=== PATIENT | female | born 1995 | race Caucasian/White ===

== ENCOUNTER → 2017-10-21 10:56 | Outpatient (CLI) | payer OTHER, MEDICAID, SELFPAY ==
[2017-10-21 12:07] LABS: Add Manual Diff / Slide Review NO; Basophils Percent Auto 1.4 % (0-2); Eosinophils Percent Auto 2.3 % (2-4); Hematocrit 41.6 % (36-46); Hemoglobin 14.1 g/dL (12.0-16.0); Lymphocytes Percent Auto 38.8 % (25-40); Mean Corpuscular HGB Conc 33.8 % (30-36); Mean Corpuscular Hemoglobin 31.4 PG (26-34); Mean Corpuscular Volume 93.1 fL (80-100); Neutrophils Absolute Auto 3100 /uL (3000-5900); Neutrophils Percent Auto 49.5 % (50-75); Platelet Count 339 X10^3/uL (150-400); Red Blood Cell Count 4.47 X10^6/uL (4.0-5.2); Red Cell Distribution Width 12.8 % (11.6-14.8); White Blood Cell Count 6.2 X10^3/uL (4.5-11.0)
[2017-10-21 12:40] LABS: Alanine Aminotransferase 17 IU/L (9-52); Albumin 4.2 g/dL (3.5-5.0); Albumin Globulin Ratio 1.5 (1.0-2.8); Alkaline Phosphatase 37 U/L (38-126); Aspartate Aminotransferase 16 IU/L (14-36); Bilirubin Total 0.5 mg/dL (0.2-1.3); Blood Urea Nitrogen 21 mg/dL (7-17); Carbon Dioxide 25 mmol/L (22-32); Chloride 103 mmol/L (98-107); Cholesterol 154 mg/dL (140-199); Estimated Glomerular Filt Rate > 60.0 mL/min (>60); Globulin 2.8 g/dL (1.7-4.1); Glucose 82 mg/dL (70-100); HDL Cholesterol 78 mg/dL (40-60); HEMOLYSIS < 15 (0-50); LDL Cholesterol Calculated 67 mg/dL (<100); Sodium 138 mmol/L (137-145); Triglycerides 43 mg/dL (35-150)
[2017-10-21 13:00] LABS: Urine N gonorrhoeae NOT DETECTED
[2017-10-21 13:08] LABS: Urine Chlamydia NOT DETECTED
[2017-10-21 13:24] LABS: Thyroid Stimulating Hormone 2.09 uIU/mL (0.47-4.68)
[2017-10-21 16:07] LABS: HIV 1 and 2 Antibody NEGATIVE (NEGATIVE)
[2017-10-23 16:16] LABS: Hepatitis A Antibody IgM NONREACTIVE; Hepatitis Acute Panel Interp 0.37; Hepatitis B Core Antibody IgM NONREACTIVE; Hepatitis B Surface Antigen NONREACTIVE; Hepatitis C Antibody NONREACTIVE
[2017-10-24 15:33] LABS: Rapid Plasma Reagin NON REACTIVE
== END ==
PROVIDERS: PCP Family Medicine; Visit Provider Family Medicine
DX: Z13.9 Encounter for screening, unspecified (principal); Z20.2 Contact with and (suspected) exposure to infections with a predominantly sexual mode of transmission
CPT/HCPCS: 36415; 80053; 80061; 80074; 84443; 85025; 86592; 86703; 87491; 87591

== ENCOUNTER 2018-01-21 15:28 | Emergency (ER) | payer OTHER, MEDICAID, SELFPAY ==
[2018-01-21 15:35] VITALS: PULSE 75; RESP 17; TEMP 36.6; O2SAT 99
--- NOTE | 2018-01-21 15:43 | ED_ITS ---
HPI - Female Genitourinary <SARAH Mayo - Last Filed: 01/21/18 21:46> General Chief complaint: Vaginal Bleeding Stated complaint: building services engineer problem with bleeding sent by walk in Time Seen by Provider: 01/21/18 15:41 Source: patient Mode of arrival: ambulatory Limitations: no limitations History of Present Illness HPI Narrative: 22-year-old healthy female that is a nonsmoker here for complaint of having vaginal bleeding over the past week. She reports that she had intercourse with her boyfriend last week and for approximately 3-4 days afterward had some vaginal bleeding and some discomfort. She reports that this resolved mostly. She reports she started her. Earlier today and inserted a tampon and then had pain into the vaginal area and then started bleeding more after the tampon was inserted. She reports that she had a similar episode a year ago and she had a vaginal laceration that had to be repaired by building services engineer. She is concerned that she may have the same symptoms. She denies any abnormal vaginal discharge. she she denies any abdominal pain. She reports that she has gone through 3 pads today over approximate 8 hrs. MD Complaint: vaginal bleeding Related Data Home Medications Medication Instructions Recorded Confirmed albuterol sulfate [ProAir HFA] 1 puff INHALATION QID PRN 01/21/18 01/21/18 fluoxetine [Prozac] 40 mg PO DAILY 01/21/18 01/21/18 norethindrone-e.estradiol-iron 1 tab PO DAILY 01/21/18 01/21/18 [Melodetta 24 Fe] Previous Rx's Medication Instructions Recorded clindamycin 1.2 % (1 % 1 applictn TOP BID #45 gram 09/25/17 base)-benzoyl peroxide 5 % topical gel fluocinonide 0.05 % topical 1 applictn TOP BID #60 ml 12/11/17 solution Allergies Allergy/AdvReac Type Severity Reaction Status Date / Time No Known Allergies Allergy Uncoded 09/23/17 17:18 Review of Systems <SARAH Mayo - Last Filed: 01/21/18 21:46> Constitutional Denies chills, Denies fever(s), Denies lethargy and Denies weakness Eyes Denies change in vision, Denies eye discharge, Denies irritation and Denies loss of vision ENT Ears, Nose, Mouth, and Throat: Denies change in voice, Denies neck pain and Denies sore throat Cardiovascular Denies chest pain, Denies irregular heart rhythm, Denies lightheadedness, Denies palpitations, Denies dyspnea, Denies dyspnea on exertion and Denies orthopnea Respiratory Denies cough, Denies dyspnea, Denies dyspnea on exertion and Denies wheezing Gastrointestinal Gastrointestinal: Denies abdominal pain, Denies change in bowel habits, Denies diarrhea, Denies nausea and Denies vomiting Genitourinary Reports abnormal vaginal bleeding, Denies hematuria, Denies flank pain, Denies urinary incontinence and Denies urinary urgency Musculoskeletal Denies neck pain Integumentary/Breasts Denies pruritus, Denies erythema, Denies rash and Denies wounds Neurologic Denies confusion, Denies loss of vision and Denies weakness Psychiatric Denies anxiety, Denies confusion, Denies depression, Denies homicidal ideation and Denies suicidal ideation Endocrine Denies palpitations Hematologic/Lymphatic Denies easy bruising Allergic/Immunologic Denies wheezing Exam <SARAH Mayo - Last Filed: 01/21/18 21:46> Initial Vital Signs Initial Vital Signs: Vital Signs Temperature 97.8 F 01/21/18 15:35 Pulse Rate 75 01/21/18 15:35 Respiratory Rate 17 01/21/18 15:35 Pulse Oximetry 99 01/21/18 15:35 Const General: cooperative and well developed Nutritional Appearance: well nourished Orientation: alert, awake, oriented x3 and not confused [facility] Mouth: oral mucosae normal and moist mucous membranes Eyes Conjunctivae: conjunctivae normal Sclera: sclerae normal Pupils: PERRL EOM: EOM intact bilaterally Resp Effort & Inspection: normal respiratory effort, able to speak in complete sentences, no respiratory distress and no use of accessory muscles Auscultation: clear to auscultation bilaterally, no rales, no rhonchi and no wheezes Cardio Rate: regular rate Rhythm: regular rhythm Heart Sounds: no click, no gallops, no murmurs and no rubs Pulses: normal peripheral pulses GI Inspection: non-distended Palpation: soft, no hepatosplenomegaly, No guarding, No pulsatile mass and No tender Auscultation: normal bowel sounds Skin General: no rashes or lesions noted, No jaundice and No petechiae Neuro General: alert, oriented x3, gait normal and no focal motor deficits Speech: speech normal <Laurel Canales MD - Last Filed: 01/28/18 00:03> Initial Vital Signs Initial Vital Signs: Vital Signs Temperature 97.8 F 01/21/18 15:35 Pulse Rate 75 01/21/18 15:35 Respiratory Rate 17 01/21/18 15:35 Pulse Oximetry 99 01/21/18 15:35 Course <SARAH Mayo - Last Filed: 01/21/18 21:46> Orders Ordered: ED Orders 01/21/18 16:23 Complete Blood Count AUTO DIFF Stat Comprehensive Metabolic Panel Stat Vital Signs - 8 hr 01/21/18 15:35 Temperature 97.8 F Pulse Rate 75 Respiratory Rate 17 Pulse Oximetry 99 <Laurel Canales MD - Last Filed: 01/28/18 00:03> Orders Ordered: ED Orders 01/21/18 16:23 Complete Blood Count AUTO DIFF Stat Comprehensive Metabolic Panel Stat Vital Signs - 8 hr 01/21/18 15:35 Temperature 97.8 F Pulse Rate 75 Respiratory Rate 17 Pulse Oximetry 99 MDM - Female Genitourinary <SARAH Mayo - Last Filed: 01/21/18 21:46> Lab Data Result diagrams: 01/21/18 16:23 01/21/18 16:23 Lab Results 01/21/18 01/21/18 Range/Units 16:23 16:23 WBC 6.0 (4.5-11.0) X10^3/uL RBC 4.36 (4.0-5.2) X10^6/uL Hgb 13.8 (12.0-16.0) g/dL Hct 41.3 (36-46) % MCV 94.6 (80-100) fL MCH 31.8 (26-34) PG MCHC 33.6 (30-36) % RDW 12.7 (11.6-14.8) % Plt Count 315 (150-400) X10^3/uL Neut % (Auto) 49.2 L (50-75) % Lymph % (Auto) 37.3 (25-40) % Tyrrell % (Auto) 9.5 (3-14) % Eos % (Auto) 2.5 (2-4) % Baso % (Auto) 1.5 (0-2) % Neut # (Auto) 3000 (9781-1100) /uL Sodium 144 (137-145) mmol/L Potassium 3.8 (3.4-5.1) mmol/L Chloride 106 (98-107) mmol/L Carbon Dioxide 26 (22-32) mmol/L BUN 5 L (7-17) mg/dL Creatinine 0.60 (0.52-1.04) mg/dL Estimated GFR > 60.0 (>60) mL/min BUN/Creatinine Ratio 8.3 (6-22) Glucose 104 H (70-100) mg/dL Calcium 8.3 L (8.4-10.2) mg/dL Total Bilirubin 0.3 (0.2-1.3) mg/dL AST 20 (14-36) IU/L ALT 16 (9-52) IU/L Alkaline Phosphatase 39 (38-126) U/L Total Protein 6.7 (6.3-8.2) g/dL Albumin 4.2 (3.5-5.0) g/dL Globulin 2.5 (1.7-4.1) g/dL Albumin/Globulin Ratio 1.7 (1.0-2.8) Point of Care Testing Test Results Negative Urine Dip Bedside Urine Bilirubin - Negative Bedside Urine Ketone - Negative Urine Specific [place] 1.02 Bedside Urine Occult Blood + Bedside Urine pH 6.0 Bedside Urine Protein - Negative Bedside Urine Urobilinogen - Negative Bedside Urine Nitrite - Negative Bedside Urine Leukocytes - Negative Esterase MDM Narrative Medical decision making narrative: POC urine was obtained was negative for urinary tract infection or . CBC and Chem panel were obtained and are unremarkable. During evaluation was called from building services engineer office and was informed that she has an appointment with Dr. Healy at this timeframe and that they would like to see her of the building services engineer. Patient is discharged to go to her building services engineer appointment for further evaluation of her current symptoms. Return emergency room for any worsening symptoms <Laurel Canales MD - Last Filed: 01/28/18 00:03> Lab Data Lab Results 01/21/18 01/21/18 Range/Units 16:23 16:23 WBC 6.0 (4.5-11.0) X10^3/uL RBC 4.36 (4.0-5.2) X10^6/uL Hgb 13.8 (12.0-16.0) g/dL Hct 41.3 (36-46) % MCV 94.6 (80-100) fL MCH 31.8 (26-34) PG MCHC 33.6 (30-36) % RDW 12.7 (11.6-14.8) % Plt Count 315 (150-400) X10^3/uL Neut % (Auto) 49.2 L (50-75) % Lymph % (Auto) 37.3 (25-40) % Tyrrell % (Auto) 9.5 (3-14) % Eos % (Auto) 2.5 (2-4) % Baso % (Auto) 1.5 (0-2) % Neut # (Auto) 3000 (4826-0727) /uL Sodium 144 (137-145) mmol/L Potassium 3.8 (3.4-5.1) mmol/L Chloride 106 (98-107) mmol/L Carbon Dioxide 26 (22-32) mmol/L BUN 5 L (7-17) mg/dL Creatinine 0.60 (0.52-1.04) mg/dL Estimated GFR > 60.0 (>60) mL/min BUN/Creatinine Ratio 8.3 (6-22) Glucose 104 H (70-100) mg/dL Calcium 8.3 L (8.4-10.2) mg/dL Total Bilirubin 0.3 (0.2-1.3) mg/dL AST 20 (14-36) IU/L ALT 16 (9-52) IU/L Alkaline Phosphatase 39 (38-126) U/L Total Protein 6.7 (6.3-8.2) g/dL Albumin 4.2 (3.5-5.0) g/dL Globulin 2.5 (1.7-4.1) g/dL Albumin/Globulin Ratio 1.7 (1.0-2.8) Point of Care Testing Test Results Negative Urine Dip Bedside Urine Bilirubin - Negative Bedside Urine Ketone - Negative Urine Specific [place] 1.02 Bedside Urine Occult Blood + Bedside Urine pH 6.0 Bedside Urine Protein - Negative Bedside Urine Urobilinogen - Negative Bedside Urine Nitrite - Negative Bedside Urine Leukocytes - Negative Esterase Discharge Plan Departure Patient Disposition: Home Clinical Impression: Vaginal bleeding Discharge Date/Time: 01/21/18 16:46 Interventions: ED Discharge Assessment Last Done: 01/21/18 16:45 Instructions: DI for Vaginal Bleeding Activity Restrictions/Additional Instructions: You have an appointment with building services engineer at this time go to building services engineer for further evaluation and treatment of her current symptoms. Return emergency room for any worsening symptoms. Prescriptions: No Action clindamycin-benzoyl peroxide [Duac] 1.2 %(1 % base) -5 % gel 1 applictn TOP BID Qty: 45 RF: 3 fluocinonide 0.05 % solution 1 applictn TOP BID Qty: 60 RF: 3 albuterol sulfate [ProAir HFA] 90 mcg/actuation HFA aerosol inhaler 1 puff Inhalation QID PRN (Reason: Shortness Of Breath Or Wheezing) RF: 0 norethindrone-e.estradiol-iron [Melodetta 24 Fe] 1 mg-20 mcg(24) /75 mg (4) tablet,chewable 1 tab PO DAILY RF: 0 fluoxetine [Prozac] 40 mg capsule 40 mg PO DAILY RF: 0 Referrals: Kira Carvalho DO [Primary Care Provider] -
--- NOTE | 2018-01-21 16:18 | PC.NURSE ---
Patient reports having sex approx one week ago when sudden onset of sharp pain and bleeding started. Had a similar episode one year ago that required surgical repair. Bleeding lasted approx 4days with pain inside vagina. Today period started, patient placed a tampon and had severe pain and increase bleeding after use of tampon. Patient reports pain is not typical period pain.
[2018-01-21 16:35] LABS: Add Manual Diff / Slide Review NO; Basophils Percent Auto 1.5 % (0-2); Eosinophils Percent Auto 2.5 % (2-4); Hematocrit 41.3 % (36-46); Hemoglobin 13.8 g/dL (12.0-16.0); Lymphocytes Percent Auto 37.3 % (25-40); Mean Corpuscular HGB Conc 33.6 % (30-36); Mean Corpuscular Hemoglobin 31.8 PG (26-34); Mean Corpuscular Volume 94.6 fL (80-100); Monocytes Percent Auto 9.5 % (3-14); Neutrophils Absolute Auto 3000 /uL (3000-5900); Neutrophils Percent Auto 49.2 % (50-75); Platelet Count 315 X10^3/uL (150-400); Red Blood Cell Count 4.36 X10^6/uL (4.0-5.2); Red Cell Distribution Width 12.7 % (11.6-14.8)
--- NOTE | 2018-01-21 16:44 | PC.NURSE ---
DR Healy's office called and patient was suppose to go to office for a visit. Patient had lab draw and was discharged from ED to go directly to OB office. Did not sign discharge documents.
[2018-01-21 16:48] LABS: Alanine Aminotransferase 16 IU/L (9-52); Albumin 4.2 g/dL (3.5-5.0); Albumin Globulin Ratio 1.7 (1.0-2.8); Alkaline Phosphatase 39 U/L (38-126); Aspartate Aminotransferase 20 IU/L (14-36); BUN Creatinine Ratio 8.3 (6-22); Bilirubin Total 0.3 mg/dL (0.2-1.3); Blood Urea Nitrogen 5 mg/dL (7-17); Calcium 8.3 mg/dL (8.4-10.2); Carbon Dioxide 26 mmol/L (22-32); Chloride 106 mmol/L (98-107); Estimated Glomerular Filt Rate > 60.0 mL/min (>60); Globulin 2.5 g/dL (1.7-4.1); Glucose 104 mg/dL (70-100); HEMOLYSIS < 15 (0-50); Potassium 3.8 mmol/L (3.4-5.1); Sodium 144 mmol/L (137-145); Total Protein 6.7 g/dL (6.3-8.2)
== END 2018-01-21 16:46 | disposition home or self-care (01) ==
PROVIDERS: Emergency Provider Nurse Practitioner Family; PCP Family Medicine
DX: N93.9 Abnormal uterine and vaginal bleeding, unspecified (principal)
CPT/HCPCS: 80053; 81003; 81025; 85025; 99282; 99283

== ENCOUNTER 2018-08-05 19:07 | Emergency (ER) | payer OTHER, MEDICAID, SELFPAY ==
[2018-08-05 19:18] VITALS: BP 165/88; PULSE 94; RESP 18; TEMP 37.4; O2SAT 100; BMI 22.8
[2018-08-05] MEDS: hydrOXYzine pamoate 25 MG CAPSULE 50 MG PO (19:51)
--- NOTE | 2018-08-05 21:05 | ED.ANXIETY ---
HPI - Anxiety <RENEE Mcdaniel-BC - Last Filed: 08/05/18 21:26> General Chief Complaint: Anxiety Stated Complaint: VOMITING FEVER ANXIETY SOB Time Seen by Provider: 08/05/18 19:29 Source: patient Mode of arrival: ambulatory Limitations: no limitations History of Present Illness HPI narrative: The patient is a 23-year-old female former smoker with history of anxiety, who presents with a chief complaint of anxiety. She states that she recently cut her Prozac cold turkey. She was taking 60 mg p.o. daily for 4 years, but then decided that she did not want to take preventative medications any more. She states that since she quit taking the medication, she has had increasing anxiety symptoms including chest fluttering, nausea, racing thoughts etc. She denies any current suicidal ideation or homicidal ideation. She states she has taken Xanax before with good effect. Related Data Home Medications Medication Instructions Recorded Confirmed albuterol sulfate [ProAir HFA] 1 puff INHALATION QID PRN 01/21/18 01/21/18 fluoxetine [Prozac] 40 mg PO DAILY 01/21/18 01/21/18 norethindrone-e.estradiol-iron 1 tab PO DAILY 01/21/18 01/21/18 [Melodetta 24 Fe] Previous Rx's Medication Instructions Recorded clindamycin 1.2 % (1 % 1 applictn TOP BID #45 gram 09/25/17 base)-benzoyl peroxide 5 % topical gel fluocinonide 0.05 % topical 1 applictn TOP BID #60 ml 06/23/18 solution fluocinonide 0.05 % topical cream 1 applictn TOP BID #60 gram 06/25/18 alprazolam [Xanax] 0.25 mg PO BID-TID PRN #5 tab 08/05/18 hydroxyzine pamoate [Vistaril] 50 mg PO TID-QID PRN #30 cap 08/05/18 Allergies Allergy/AdvReac Type Severity Reaction Status Date / Time No Known Drug Allergies Allergy Verified 08/05/18 19:39 Review of Systems <SHAVON Mcdaniel - Last Filed: 08/05/18 21:26> Review of Systems GENERAL: Denies chills, fatigue, malaise, fever, sweats. HEENT: Denies sinus pain, ear pain, sore throat, difficulty swallowing, dizziness. RESPIRATORY: Denies dyspnea, cough, wheezing, hemoptysis, sputum. CARDIOVASCULAR: Denies chest pain, palpitations, orthopnea, edema, GASTROINTESTINAL: Denies nausea, vomiting, abdominal pain, diarrhea, constipation, melena. : Denies dysuria, frequency, incontinence, hematuria, urinary retention. MUSCULOSKELETAL: denies weakness, joint pain, or bony pain SKIN: Denies rash, skin lesions, or other NEUROLOGIC: Denies weakness, headache, numbness, change in speech, confusion, seizures, incoordination. 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) Acne (Resolved Unknown) ADHD (Inactive ~2012) Abnormal Pap smear of cervix (Inactive ~2012) Acne (Inactive ~2007) Anemia (Inactive ~2012) Anxiety (Inactive ~2012) Asthma (Inactive ~2008) Bipolar 1 disorder (Inactive ~2012) Chickenpox (Inactive ~2002) Depression (Inactive ~2012) Eczema (Inactive ~2004) Heavy menstrual period (Inactive ~2007) Irregular menstrual cycle (Inactive ~2005) Psoriasis (Inactive ~2004) Scoliosis (Inactive ~2005) Skin cancer (Inactive ~2014) Family History Mother Skin cancer Mental health problem Grandmother Hypertension Diabetes mellitus Mental health problem Hyperlipidemia Social History Smoking Status: Former smoker alcohol intake: current (Occasionally, maybe a drink a week) substance use type: does not use Family History Mother Skin cancer Mental health problem Grandmother Hypertension Diabetes mellitus Mental health problem Hyperlipidemia Social History Smoking Status: Former smoker alcohol intake: current (Occasionally, maybe a drink a week) substance use type: does not use Exam <SHAVON Mcdaniel - Last Filed: 08/05/18 21:26> Narrative Exam Narrative: GENERAL: This is a well-nourished, well-developed patient, appears anxious HEAD: Atraumatic. Normocephalic. No temporal or scalp tenderness. EYES: Pupils equal round and reactive. Extraocular motions intact. No scleral icterus. No injection or drainage. ENT: Nose without bleeding, purulent drainage or septal hematoma. Throat without erythema, tonsillar hypertrophy or exudate. Uvula midline. Airway patent. NECK: Trachea midline. No JVD or lymphadenopathy. Supple, nontender, no meningeal signs. CARDIOVASCULAR: Regular rate and rhythm without murmurs, gallops, or rubs. RESPIRATORY: Clear to auscultation. Breath sounds equal bilaterally. No wheezes, rales, or rhonchi. No cough. No increased respiratory effort. No accessory muscle use for GASTROINTESTINAL: Abdomen soft, non-tender, nondistended. No hepato-splenomegaly, or palpable masses. No guarding. EXTREMITIES: No clubbing, cyanosis, or edema. No joint tenderness, effusion, or edema noted. BACK: Nontender without deformity or crepitance. No flank tenderness. NEURO: AOx3. SKIN: No rash or erythema. Psych: Denies any suicidal thoughts, denies any suicidal ideations, denies any homicidal thoughts or ideation Initial Vital Signs Initial Vital Signs: Vital Signs Temperature 99.4 F 08/05/18 19:18 Pulse Rate 94 H 08/05/18 19:18 Respiratory Rate 18 08/05/18 19:18 Blood Pressure 165/88 H 08/05/18 19:18 Pulse Oximetry 100 08/05/18 19:18 <Ziyad May DO - Last Filed: 08/06/18 02:08> Initial Vital Signs Initial Vital Signs: Vital Signs Temperature 99.4 F 08/05/18 19:18 Pulse Rate 94 H 08/05/18 19:18 Respiratory Rate 18 08/05/18 19:18 Blood Pressure 165/88 H 08/05/18 19:18 Pulse Oximetry 100 08/05/18 19:18 Course <SHAVON Mcdaniel - Last Filed: 08/05/18 21:26> Orders Ordered: Discontinued Medications Alprazolam (Xanax) 0.25 mg PO NOW ONE Stop: 08/05/18 20:43 Last Admin: 08/05/18 21:21 Dose: 0.25 mg Hydroxyzine Pamoate (Vistaril) 50 mg PO NOW ONE Stop: 08/05/18 19:38 Last Admin: 08/05/18 19:51 Dose: 50 mg Vital Signs - 8 hr 08/05/18 19:18 08/05/18 21:19 Temperature 99.4 F 98.1 F Pulse Rate 94 H 63 Respiratory Rate 18 18 Blood Pressure 165/88 H Blood Pressure [Left Arm] 129/100 H Pulse Oximetry 100 100 <Ziyad May DO - Last Filed: 08/06/18 02:08> Orders Ordered: Discontinued Medications Alprazolam (Xanax) 0.25 mg PO NOW ONE Stop: 08/05/18 20:43 Last Admin: 08/05/18 21:21 Dose: 0.25 mg Hydroxyzine Pamoate (Vistaril) 50 mg PO NOW ONE Stop: 08/05/18 19:38 Last Admin: 08/05/18 19:51 Dose: 50 mg Vital Signs - 8 hr 08/05/18 19:18 08/05/18 21:19 Temperature 99.4 F 98.1 F Pulse Rate 94 H 63 Respiratory Rate 18 18 Blood Pressure 165/88 H Blood Pressure [Left Arm] 129/100 H Pulse Oximetry 100 100 MDM - Anxiety <RENEE Mcdaniel-GARY - Last Filed: 08/05/18 21:26> Lab Data Point of Care Testing Test Results Negative Urine Dip Bedside Urine Glucose Negative Bedside Urine Bilirubin - Negative Bedside Urine Ketone - Negative Urine Specific [place] 1.020 Bedside Urine Occult Blood - Negative Bedside Urine pH 7.0 Bedside Urine Protein - Negative Bedside Urine Urobilinogen - Negative Bedside Urine Nitrite - Negative Bedside Urine Leukocytes - Negative Esterase MDM Narrative Medical decision making narrative: The patient is a 23-year-old female who presents with a chief complaint of anxiety. She stopped taking her 60 mg of daily Prozac 3 weeks ago and then noticed an increase in her symptoms. I did give her small dose of Xanax in the emergency department as well as Vistaril. She had good effect. I encouraged her to follow up with primary care provider soon as possible rather than her appointment at the end of the month. The patient denies any suicidal thoughts or ideations this point time, but agrees to come back to the emergency department if that is to occur. She denies any questions or concerns upon discharge. <Ziyad May DO - Last Filed: 08/06/18 02:08> Lab Data Point of Care Testing Test Results Negative Urine Dip Bedside Urine Glucose Negative Bedside Urine Bilirubin - Negative Bedside Urine Ketone - Negative Urine Specific [place] 1.020 Bedside Urine Occult Blood - Negative Bedside Urine pH 7.0 Bedside Urine Protein - Negative Bedside Urine Urobilinogen - Negative Bedside Urine Nitrite - Negative Bedside Urine Leukocytes - Negative Esterase Discharge Plan Departure Patient Disposition: Home Clinical Impression: Acute anxiety Discharge Date/Time: 08/05/18 21:41 Interventions: ED Discharge Assessment Last Done: 08/05/18 21:40 Instructions: Anxiety Disorders, Anxiety and Panic Attacks (Alternative Therapy), DI for Anxiety -- Adult Activity Restrictions/Additional Instructions: Please follow up with her primary care provider regarding her anxiety. Please come back to the emergency department for any acute concerns. Please come back to emergency department for any thoughts of hurting yourself or anybody else. The anxiety medications that I have given you can make you sedating. Please do not take Xanax and drive. Do not combine with alcohol. Come back to the emergency department for any acute concerns. Prescriptions: New hydroxyzine pamoate [Vistaril] 50 mg capsule 50 mg PO TID-QID PRN (Reason: anxiety) Qty: 30 RF: 0 alprazolam [Xanax] 0.25 mg tablet 0.25 mg PO BID-TID PRN (Reason: anxiety) Qty: 5 RF: 0 No Action clindamycin-benzoyl peroxide [Duac] 1.2 %(1 % base) -5 % gel 1 applictn TOP BID Qty: 45 RF: 3 fluocinonide 0.05 % solution 1 applictn TOP BID Qty: 60 RF: 3 fluocinonide 0.05 % cream 1 applictn TOP BID Qty: 60 RF: 0 albuterol sulfate [ProAir HFA] 90 mcg/actuation HFA aerosol inhaler 1 puff Inhalation QID PRN (Reason: Shortness Of Breath Or Wheezing) RF: 0 norethindrone-e.estradiol-iron [Melodetta 24 Fe] 1 mg-20 mcg(24) /75 mg (4) tablet,chewable 1 tab PO DAILY RF: 0 fluoxetine [Prozac] 40 mg capsule 40 mg PO DAILY RF: 0 Referrals: Kira Carvalho DO [Primary Care Provider] - <Ziyad May DO - Last Filed: 08/06/18 02:08> Cosign ED Attending Jerry Attestation: I was immediately available in the department for consultation. Documentation has been reviewed. I agree with assessment and plan.
[2018-08-05 21:19] VITALS: BP 129/100; PULSE 63; RESP 18; TEMP 36.7; O2SAT 100
[2018-08-05] MEDS: ALPRAZolam 0.25 MG TABLET PO (21:21)
--- NOTE | 2018-08-05 21:47 | PC.NURSE ---
I personally saw the patient walk out of the ED with male friend that she called to pick her up after she was told that she cannot drive home because of medication that she was given here. staff saw her in the parking lot get into her car and attempted to drive but staff stopped her. security aware.
== END 2018-08-05 21:41 | disposition home or self-care (01) ==
PROVIDERS: Emergency Provider Nurse Practitioner Family; PCP Family Medicine
DX: F41.9 Anxiety disorder, unspecified (principal)
CPT/HCPCS: 81003; 81025; 99283

== ENCOUNTER 2018-09-17 13:37 | Emergency (ER) | payer OTHER, MEDICAID, SELFPAY ==
[2018-09-17 13:43] VITALS: BP 137/92; PULSE 62; RESP 16; TEMP 36.9; O2SAT 99; BMI 22.8
--- NOTE | 2018-09-17 15:33 | ED.PSYCH ---
HPI - Psych General Chief Complaint: Psychiatric Symptoms Stated Complaint: withdrawl off prozac Time Seen by Provider: 09/17/18 13:52 Source: patient Mode of arrival: ambulatory Limitations: no limitations History of Present Illness HPI Narrative: Patient comes emergency department complaining of anxiety since stopping her Prozac about 3 months ago. Patient states she sees Dr. Carvalho for this and that Dr. Carvalho had wanted to add another medication to her regimen, but patient did not want to. Instead, patient wanted to get off all medications, so she stopped her Prozac when the Prozac ran out. Patient states that ever since then, she has had worsening anxiety. Patient states she also suffers from bipolar disorder, and has felt more depressed intermittently than usual. She denies a suicidal plan. Related Data Home Medications Medication Instructions Recorded Confirmed Cleanse 1 ea PO DAILY 09/17/18 09/26/18 Minestrin 1 tab PO DAILY 09/17/18 09/26/18 Previous Rx's Medication Instructions Recorded lamotrigine 25 mg tablet See Rx Instructions PO ONCE #90 tab 09/26/18 paroxetine 20 mg tablet 20 mg PO DAILY #30 tab 09/26/18 Allergies Allergy/AdvReac Type Severity Reaction Status Date / Time No Known Drug Allergies Allergy Verified 09/26/18 14:45 Review of Systems Constitutional Denies chills, Denies fever(s), Denies lethargy and Denies weakness Eyes Denies change in vision, Denies eye discharge, Denies irritation and Denies loss of vision ENT Ears, Nose, Mouth, and Throat: Denies change in voice, Denies neck pain and Denies sore throat Cardiovascular Denies chest pain, Denies irregular heart rhythm, Denies lightheadedness, Denies palpitations, Denies dyspnea, Denies dyspnea on exertion and Denies orthopnea Respiratory Denies cough, Denies dyspnea, Denies dyspnea on exertion and Denies wheezing Gastrointestinal Gastrointestinal: Denies abdominal pain, Denies change in bowel habits, Denies diarrhea, Denies nausea and Denies vomiting Genitourinary Denies hematuria, Denies flank pain, Denies urinary incontinence and Denies urinary urgency Musculoskeletal Denies neck pain Integumentary/Breasts Denies pruritus, Denies erythema, Denies rash and Denies wounds Neurologic Denies confusion, Denies loss of vision and Denies weakness Psychiatric Reports anxiety, Denies confusion, Denies depression, Denies homicidal ideation and Denies suicidal ideation Endocrine Denies palpitations Hematologic/Lymphatic Denies easy bruising Allergic/Immunologic Denies wheezing [facility] Medical History Depression (Chronic Unknown) Eczema (Chronic Unknown) 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) Acne (Resolved Unknown) ADHD (Inactive ~2012) Abnormal Pap smear of cervix (Inactive ~2012) Acne (Inactive ~2007) Anemia (Inactive ~2012) Anxiety (Inactive ~2012) Asthma (Inactive ~2008) Bipolar 1 disorder (Inactive ~2012) Chickenpox (Inactive ~2002) Depression (Inactive ~2012) Eczema (Inactive ~2004) Heavy menstrual period (Inactive ~2007) Irregular menstrual cycle (Inactive ~2005) Psoriasis (Inactive ~2004) Scoliosis (Inactive ~2005) Skin cancer (Inactive ~2014) Family History Mother Skin cancer Mental health problem Grandmother Hypertension Diabetes mellitus Mental health problem Hyperlipidemia Social History marital status: unmarried,single pets and animals: No education level: college occupational status: employed seatbelt use: always helmet use: Yes water heater temp set < 120 deg: Yes working smoke detector in home: Yes fire extinguisher in home: Yes carbon monox detector in home: Yes firearms in home: Yes Smoking Status: Former smoker alcohol intake: current (Occasionally, maybe a drink a week) substance use type: does not use during the past year weight has: increased > 10 lbs well-balanced diet: daily or most days daily servings fruits/veg: other (5 or more) caffeine: Yes eating out: rarely or never Type(s) of exercise: additional (run , hike) frequency: 3-4 times per week duration: 15-30 minutes/day Family History Mother Skin cancer Mental health problem Grandmother Hypertension Diabetes mellitus Mental health problem Hyperlipidemia Social History marital status: unmarried,single pets and animals: No education level: college occupational status: employed seatbelt use: always helmet use: Yes water heater temp set < 120 deg: Yes working smoke detector in home: Yes fire extinguisher in home: Yes carbon monox detector in home: Yes firearms in home: Yes Smoking Status: Former smoker alcohol intake: current (Occasionally, maybe a drink a week) substance use type: does not use during the past year weight has: increased > 10 lbs well-balanced diet: daily or most days daily servings fruits/veg: other (5 or more) caffeine: Yes eating out: rarely or never Type(s) of exercise: additional (run , hike) frequency: 3-4 times per week duration: 15-30 minutes/day Exam Initial Vital Signs Initial Vital Signs: Vital Signs Temperature 98.5 F 09/17/18 13:43 Pulse Rate 62 09/17/18 13:43 Respiratory Rate 16 09/17/18 13:43 Blood Pressure 137/92 H 09/17/18 13:43 Pulse Oximetry 99 09/17/18 13:43 Const General: cooperative and well developed Nutritional Appearance: well nourished Orientation: alert, awake, oriented x3 and not confused HENSD Head: normocephalic and atraumatic Ears: external ears normal Nose: external nose normal and No nasal discharge Face and sinus: face symmetric and No dry mucous membranes Mouth: oral mucosae normal and moist mucous membranes Teeth and gingiva: dentition normal Eyes General: appearance normal, both eyes and all related structures Eyelids: eyelids normal Conjunctivae: conjunctivae normal Sclera: sclerae normal Pupils: PERRL EOM: EOM intact bilaterally Neck Neck: normal visual inspection, trachea midline, No lymphadenopathy, No midline deformity and No JVD Lymphatic: No lymphedema Chest Chest: normal inspection of the chest Resp Effort & Inspection: normal respiratory effort, able to speak in complete sentences, no respiratory distress and no use of accessory muscles Auscultation: clear to auscultation bilaterally, no rales, no rhonchi and no wheezes Cardio Rate: regular rate Rhythm: regular rhythm Heart Sounds: no click, no gallops, no murmurs and no rubs Pulses: normal peripheral pulses GI Inspection: non-distended Palpation: soft, no hepatosplenomegaly, No guarding, No pulsatile mass and No tender Auscultation: normal bowel sounds Back/Spine/Pelvis Back: No CVA tenderness Cervical Spine: cervical ROM normal and No pain with cervical ROM Thoracic/Lumbar Spine: thoracic and lumbar spine normal to inspection Skin General: no rashes or lesions noted, No jaundice and No petechiae Neuro General: alert, oriented x3, gait normal and no focal motor deficits Speech: speech normal Extrem General: full ROM, no clubbing, cyanosis or edema, no pedal edema and no calf tenderness Psych Appearance: well kempt Mental Status: mental status grossly normal Attitude: cooperative Thought Content: normal and suicidality Judgment: judgment good Course Course Narrative: The patient was not suicidal or homicidal, and was not psychotic. I discussed with her which she would like to do as far is treatment of her symptoms, and suggested that perhaps going back on her Wellbutrin, which had worked well for her before, with the a good idea. Patient stated she would prefer this over getting back on Prozac. I have prescribed this for her, as well as a small prescription for benzodiazepine for rescue. Patient is advised to call her primary care physician 1st thing in the morning to set up an appointment to come up with a longer term treatment plan. I do not feel the patient is a danger to herself at this time, we have discussed the usual indications for return. Orders Ordered: Discontinued Medications Diazepam (Valium) 5 mg PO NOW ONE Stop: 09/17/18 15:28 Last Admin: 09/17/18 15:36 Dose: 5 mg Vital Signs - 8 hr 09/17/18 13:43 Temperature 98.5 F Pulse Rate 62 Respiratory Rate 16 Blood Pressure 137/92 H Pulse Oximetry 99 MDM - Psych Medical Records Attestation: I reviewed the patient's medical records. Discharge Plan Departure Patient Disposition: Home Clinical Impression: Acute anxiety Discharge Date/Time: 09/17/18 15:49 Interventions: ED Discharge Assessment Last Done: 09/17/18 15:45 Instructions: DI for Anxiety -- Adult Activity Restrictions/Additional Instructions: Please make an appointment to see Dr. Carvalho within the next week to discuss your medication regimen. Prescriptions: No Action lamotrigine 25 mg tablet See Rx Instructions PO ONCE Qty: 90 RF: 0 paroxetine HCl [Paxil] 20 mg tablet 20 mg PO DAILY Qty: 30 RF: 0 Minestrin 1 tab PO DAILY RF: 0 Cleanse 1 ea PO DAILY RF: 0 Referrals: Kira Carvalho DO [Primary Care Provider] -
[2018-09-17] MEDS: diazePAM 5 MG TABLET PO (15:36)
[2018-09-17 15:45] VITALS: BP 126/71; PULSE 63; RESP 19; O2SAT 97
== END 2018-09-17 15:49 | disposition home or self-care (01) ==
PROVIDERS: Emergency Provider Emergency Medicine; PCP Family Medicine
DX: F41.9 Anxiety disorder, unspecified (principal)
CPT/HCPCS: 99282; 99283

== ENCOUNTER → 2018-11-14 10:08 | Outpatient (CLI) | payer OTHER, MEDICAID, SELFPAY ==
[2018-11-14 11:14] LABS: Add Manual Diff / Slide Review NO; Basophils Absolute Auto 0 /uL (0-100); Basophils Percent Auto 0.7 % (0-2); Eosinophils Absolute Auto 100 /uL (0-450); Eosinophils Percent Auto 1.7 % (2-4); Hemoglobin 14.5 g/dL (12.0-16.0); Lymphocytes Absolute Auto 1600 /uL (1100-4500); Mean Corpuscular HGB Conc 33.7 % (30-36); Mean Corpuscular Hemoglobin 32.5 PG (26-34); Mean Corpuscular Volume 96.5 fL (80-100); Monocytes Absolute Auto 800 /uL (0-900); Monocytes Percent Auto 11.7 % (3-14); Neutrophils Absolute Auto 4100 /uL (1500-7000); Neutrophils Percent Auto 61.9 % (50-75); Platelet Count 257 X10^3/uL (150-400); Red Blood Cell Count 4.46 X10^6/uL (4.0-5.2); Red Cell Distribution Width 13.7 % (11.6-14.8); White Blood Cell Count 6.6 X10^3/uL (4.5-11.0)
[2018-11-14 11:26] LABS: Alanine Aminotransferase 19 IU/L (9-52); Albumin 4.3 g/dL (3.5-5.0); Albumin Globulin Ratio 1.5 (1.0-2.8); Alkaline Phosphatase 46 U/L (38-126); Aspartate Aminotransferase 34 IU/L (14-36); Bilirubin Total 0.5 mg/dL (0.2-1.3); Blood Urea Nitrogen 12 mg/dL (7-17); Carbon Dioxide 27 mmol/L (22-32); Chloride 104 mmol/L (98-107); Estimated Glomerular Filt Rate > 60.0 mL/min (>60); Globulin 2.8 g/dL (1.7-4.1); Glucose 99 mg/dL (70-100); HEMOLYSIS < 15 (0-50); Potassium 4.1 mmol/L (3.4-5.1); Sodium 140 mmol/L (137-145); Total Protein 7.1 g/dL (6.3-8.2)
[2018-11-14 12:20] LABS: Free T3, Triiodothyronine Free 3.67 pg/mL (2.77-5.27)
[2018-11-14 12:34] LABS: TSH w/ Reflex to FT4 2.22 uIU/mL (0.47-4.68)
== END ==
PROVIDERS: PCP Family Medicine; Visit Provider Family Medicine
DX: R61 Generalized hyperhidrosis (principal); R68.89 Other general symptoms and signs; F15.11 Other stimulant abuse, in remission; F34.9 Persistent mood [affective] disorder, unspecified; G47.00 Insomnia, unspecified
CPT/HCPCS: 36415; 80053; 80349; 80356; 80361; 84443; 84481; 85025

== ENCOUNTER → 2019-04-14 10:04 | Outpatient (CLI) | payer OTHER, MEDICAID, SELFPAY ==
[2019-04-14 12:13] LABS: Urine N gonorrhoeae NOT DETECTED
[2019-04-14 12:14] LABS: Urine Chlamydia NOT DETECTED
[2019-04-16 16:07] LABS: Lamotrigine Lamictal 6.1 mcg/mL (4.0-18.0)
[2019-04-17 09:23] LABS: Hepatitis A Antibody IgM NONREACTIVE; Hepatitis Acute Panel Interp 0.15; Hepatitis B Core Antibody IgM NONREACTIVE; Hepatitis B Surface Antigen NONREACTIVE; Hepatitis C Antibody NONREACTIVE
[2019-04-17 09:46] LABS: Syphilis AB Cascading Reflex NEGATIVE (Negative)
== END ==
PROVIDERS: Family Medicine; PCP Family Medicine; Referring Provider Family Medicine; Visit Provider Family Medicine
DX: Z51.81 Encounter for therapeutic drug level monitoring (principal); Z20.2 Contact with and (suspected) exposure to infections with a predominantly sexual mode of transmission
CPT/HCPCS: 36415; 80074; 80175; 86780; 87491; 87591

== ENCOUNTER 2019-04-28 16:10 | Emergency (ER) | payer OTHER, MEDICAID, SELFPAY ==
[2019-04-28 16:20] VITALS: BP 144/92; PULSE 106; RESP 15; TEMP 36.6; O2SAT 98; BMI 20.5
--- NOTE | 2019-04-28 16:53 | PC.NURSE ---
at 1626, pt reports, hx of concussion, slipped and feel at her home, josue, denies loc. states very familiar with concussion, used to be team supervisor. has not taken paxil 40mg for 2 weeks, pt claims she lost her meds and causing memory issue. she had called dr bowling for refill and she has been calling pharmacy, but no refills. pt reports, dizziness when standing and claims falling x10 for the last 5 days. denies hx of seizures. +visual double vision with events, wears reading glasses.
[2019-04-28 16:57] VITALS: BP 133/72; PULSE 77; RESP 16; O2SAT 100
[2019-04-28] MEDS: hydrOXYzine pamoate 25 MG CAPSULE 50 MG PO (17:19)
[2019-04-28 17:21] VITALS: BP 137/72; PULSE 82; RESP 16; O2SAT 99
[2019-04-28 17:29] LABS: Add Manual Diff / Slide Review NO; Basophils Absolute Auto 100 /uL (0-100); Basophils Percent Auto 1.3 % (0-2); Eosinophils Absolute Auto 100 /uL (0-450); Eosinophils Percent Auto 1.3 % (2-4); Hematocrit 42.6 % (36-46); Hemoglobin 14.5 g/dL (12.0-16.0); Lymphocytes Absolute Auto 2900 /uL (1100-4500); Lymphocytes Percent Auto 42.2 % (25-40); Mean Corpuscular HGB Conc 33.9 % (30-36); Mean Corpuscular Hemoglobin 33.7 PG (26-34); Mean Corpuscular Volume 99.2 fL (80-100); Monocytes Absolute Auto 600 /uL (0-900); Monocytes Percent Auto 8.8 % (3-14); Neutrophils Absolute Auto 3200 /uL (1500-7000); Neutrophils Percent Auto 46.4 % (50-75); Platelet Count 320 X10^3/uL (150-400); Red Cell Distribution Width 13.6 % (11.6-14.8); White Blood Cell Count 6.8 X10^3/uL (4.5-11.0)
[2019-04-28 17:30] VITALS: BP 135/75; PULSE 88; RESP 18; O2SAT 100
[2019-04-28 17:33] LABS: Ur Creatinine Normal (Normal); Ur Specific Gravity Normal (Normal); Urine Tetrahydrocannabinol Positive (Negative); Urine pH Normal (Normal)
[2019-04-28 17:34] LABS: UR Morphine/Opiate cutoff 300 Negative (Negative); Urine Amphetamines Positive (Negative); Urine Barbiturates Negative (Negative); Urine Benzodiazepines Negative (Negative); Urine Cocaine Negative (Negative); Urine MDMA Negative (Negative); Urine Methadone Negative (Negative); Urine Methamphetamines Negative (Negative); Urine Oxycodone Negative (Negative); Urine Phencyclidine Negative (Negative); Urine Tricyclic Antidepressant Negative (Negative)
[2019-04-28 17:49] LABS: Alanine Aminotransferase 34 IU/L (<35); Albumin 4.6 g/dL (3.5-5.0); Albumin Globulin Ratio 1.4 (1.0-2.8); Alkaline Phosphatase 46 U/L (38-126); Aspartate Aminotransferase 52 IU/L (14-36); BUN Creatinine Ratio 11.7 (6-22); Bilirubin Total 0.3 mg/dL (0.2-1.3); Blood Urea Nitrogen 7 mg/dL (7-17); Carbon Dioxide 27 mmol/L (22-32); Chloride 106 mmol/L (98-107); Estimated Glomerular Filt Rate > 60.0 mL/min (>60); Globulin 3.2 g/dL (1.7-4.1); Glucose 89 mg/dL (70-100); HEMOLYSIS < 15 (0-50); Potassium 3.6 mmol/L (3.4-5.1); Sodium 144 mmol/L (137-145); Total Protein 7.8 g/dL (6.3-8.2)
[2019-04-28 17:56] LABS: Ethanol (ETOH) 218 mg/dL
[2019-04-28 18:00] VITALS: BP 130/73; PULSE 66; RESP 18; O2SAT 100
[2019-04-28 18:25] LABS: Thyroid Stimulating Hormone 1.86 uIU/mL (0.47-4.68)
--- NOTE | 2019-04-28 19:02 | ED_ITS ---
HPI - Neuro Symptoms/Deficit <SHAVON Mcdaniel - Last Filed: 04/28/19 19:08> General Chief Complaint: Neuro Symptoms/Deficit Stated Complaint: states brain is switching, visual changes Time Seen by Provider: 04/28/19 16:37 Source: patient Mode of arrival: Ambulatory Limitations: no limitations History of Present Illness HPI Narrative: The patient is a 24-year-old female former smoker with history of anxiety depression who presents with a chief complaint of brain zapping. She denies any thoughts of hurting herself or anybody else. She states that she has been unable to refill her Paxil and stopped cold turkey 10 days ago. She states that she has been working with her PCP to try to get it refilled, but she is having trouble getting it from [facility]. She states that she feels like her brain is acting which makes her eyes that. She does state that she is drinking more alcohol in order to cope with her brain zapping. She states she was drinking heavily last night. On Anticoagulants: No Related Data Home Medications Medication Instructions Recorded Confirmed dextroamphetamine-amphetamine 40 mg PO BID 04/28/19 05/01/19 [Adderall] norethindrone-e.estradiol-iron 1 tab PO DAILY 04/28/19 05/01/19 [Mibelas 24 Fe] Previous Rx's Medication Instructions Recorded albuterol sulfate 90 mcg/actuation 2 puff INHALATION QID PRN #8 gram 11/18/18 aerosol inhaler fluocinonide 0.05 % topical cream 1 applictn TOP BID #30 gram 04/13/19 fluocinonide 0.05 % topical 1 applictn TOP BID #60 ml 04/13/19 solution clonazepam 1 mg tablet 1 mg PO BID #60 tab 04/22/19 lamotrigine 100 mg tablet 100 mg PO BID #180 tab 04/22/19 paroxetine HCl 20 mg tablet 20 mg PO DAILY #90 tab 04/22/19 paroxetine HCl [Paxil] 20 mg PO DAILY #14 tab 04/28/19 chlordiazepoxide HCl 25 mg capsule 25 mg PO Q12H PRN #60 cap 05/01/19 Allergies Allergy/AdvReac Type Severity Reaction Status Date / Time latex Allergy Severe burning, Verified 05/01/19 10:11 redness Review of Systems <SHAVON Mcdaniel - Last Filed: 04/28/19 19:08> Review of Systems Narrative: GENERAL: Denies chills, fatigue, malaise, fever, sweats. HEENT: Denies sinus pain, ear pain, sore throat, difficulty swallowing, dizzi ness. RESPIRATORY: Denies dyspnea, cough, wheezing, hemoptysis, sputum. CARDIOVASCULAR: Denies chest pain, palpitations, orthopnea, edema, GASTROINTESTINAL: Denies nausea, vomiting, abdominal pain, diarrhea, constipation, melena. : Denies dysuria, frequency, incontinence, hematuria, urinary retention. MUSCULOSKELETAL: denies weakness, joint pain, or bony pain SKIN: Denies rash, skin lesions, or other NEUROLOGIC: Denies weakness, headache, numbness, change in speech, confusion, seizures, incoordination. 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) Irregular menstrual cycle (Inactive ~2005) Psoriasis (Inactive ~2004) Scoliosis (Inactive ~2005) Skin cancer (Inactive ~2014) Family History Mother Skin cancer Mental health problem Grandmother Hypertension Diabetes mellitus Mental health problem Hyperlipidemia Social History marital status: unmarried,single pets and animals: No education level: college occupational status: employed seatbelt use: always helmet use: Yes water heater temp set < 120 deg: Yes working smoke detector in home: Yes fire extinguisher in home: Yes carbon monox detector in home: Yes firearms in home: Yes Smoking Status: Former smoker Tobacco: How many years used: 1 Smokeless tobacco user: other quit status: has quit before second hand exposure: No alcohol intake: current substance use type: former substance user and marijuana during the past year weight has: increased > 10 lbs well-balanced diet: daily or most days daily servings fruits/veg: other caffeine: Yes eating out: rarely or never Type(s) of exercise: additional frequency: 3-4 times per week duration: 15-30 minutes/day Smoking Status: Former smoker alcohol intake frequency: 0-2 drinks per day Substance Use Type: does not use Exam <RENEE Mcdaniel-BC - Last Filed: 04/28/19 19:08> Narrative Exam Narrative: GENERAL: This is a well-nourished, well-developed patient, appears anxious HEAD: Atraumatic. Normocephalic. No temporal or scalp tenderness. EYES: Pupils equal round and reactive. Extraocular motions intact. No scleral icterus. No injection or drainage. ENT: Nose without bleeding, purulent drainage or septal hematoma. Throat without erythema, tonsillar hypertrophy or exudate. Uvula midline. Airway patent. NECK: Trachea midline. No JVD or lymphadenopathy. Supple, nontender, no meningeal signs. CARDIOVASCULAR: Regular rate and rhythm RESPIRATORY: Clear to auscultation. Breath sounds equal bilaterally. No wheezes, rales, or rhonchi. No cough. No increased respiratory effort. No accessory muscle use. GASTROINTESTINAL: Abdomen soft, non-tender, nondistended. No hepato- splenomegaly, or palpable masses. No guarding. EXTREMITIES: No clubbing, cyanosis, or edema. No joint tenderness, effusion, or edema noted. BACK: Nontender without deformity or crepitance. No flank tenderness. NEURO: AOx3. Teary. Finger-nose test intact. Clear speech. No gross cranial nerve deficit. Remote and recent memory intact SKIN: No rash or erythema. Initial Vital Signs Initial Vital Signs: Vital Signs Temperature 97.9 F 04/28/19 16:20 Pulse Rate 106 H 04/28/19 16:20 Respiratory Rate 15 04/28/19 16:20 Blood Pressure 144/92 H 04/28/19 16:20 Pulse Oximetry 98 04/28/19 16:20 <So Bonilla DO - Last Filed: 05/01/19 19:31> Initial Vital Signs Initial Vital Signs: Vital Signs Temperature 97.9 F 04/28/19 16:20 Pulse Rate 106 H 04/28/19 16:20 Respiratory Rate 15 04/28/19 16:20 Blood Pressure 144/92 H 04/28/19 16:20 Pulse Oximetry 98 04/28/19 16:20 Course <SHAVON Mcdaniel - Last Filed: 04/28/19 19:08> Orders Ordered: Discontinued Medications Hydroxyzine Pamoate (Vistaril) 50 mg PO NOW ONE Stop: 04/28/19 17:07 Last Admin: 04/28/19 17:19 Dose: 50 mg Documented by: MEISENB Vital Signs Vital signs: Vital Signs - 8 hr 04/28/19 16:20 04/28/19 16:57 04/28/19 17:21 Temperature 97.9 F Pulse Rate 106 H 77 82 Respiratory Rate 15 16 16 Blood Pressure 144/92 H Blood Pressure [Left Arm] 133/72 137/72 Pulse Oximetry 98 100 99 04/28/19 17:30 04/28/19 18:00 Temperature Pulse Rate 88 66 Respiratory Rate 18 18 Blood Pressure Blood Pressure [Left Arm] 135/75 130/73 Pulse Oximetry 100 100 <So Bonilla DO - Last Filed: 05/01/19 19:31> Orders Ordered: Discontinued Medications Hydroxyzine Pamoate (Vistaril) 50 mg PO NOW ONE Stop: 04/28/19 17:07 Last Admin: 04/28/19 17:19 Dose: 50 mg Documented by: MEISENB Vital Signs Vital signs: Vital Signs - 8 hr 04/28/19 16:20 04/28/19 16:57 04/28/19 17:21 Temperature 97.9 F Pulse Rate 106 H 77 82 Respiratory Rate 15 16 16 Blood Pressure 144/92 H Blood Pressure [Left Arm] 133/72 137/72 Pulse Oximetry 98 100 99 04/28/19 17:30 04/28/19 18:00 Temperature Pulse Rate 88 66 Respiratory Rate 18 18 Blood Pressure Blood Pressure [Left Arm] 135/75 130/73 Pulse Oximetry 100 100 MDM - Neuro Symptoms/Deficit <SHAVON Mcdaniel - Last Filed: 04/28/19 19:08> Lab Data Attestation: I reviewed the patient's lab results. Result diagrams: 04/28/19 17:22 04/28/19 17:22 Labs: Lab Results 04/28/19 04/28/19 04/28/19 Range/Units 16:40 17:22 17:22 WBC 6.8 (4.5-11.0) X10^3/uL RBC 4.30 (4.0-5.2) X10^6/uL Hgb 14.5 (12.0-16.0) g/dL Hct 42.6 (36-46) % MCV 99.2 (80-100) fL MCH 33.7 (26-34) PG MCHC 33.9 (30-36) % RDW 13.6 (11.6-14.8) % Plt Count 320 (150-400) X10^3/uL Neut % (Auto) 46.4 L (50-75) % Lymph % (Auto) 42.2 H (25-40) % [place] % (Auto) 8.8 (3-14) % Eos % (Auto) 1.3 L (2-4) % Baso % (Auto) 1.3 (0-2) % Neut # (Auto) 3200 (9289-5498) /uL Lymph # (Auto) 2900 (9635-8437) /uL [place] # (Auto) 600 (0-900) /uL Eos # (Auto) 100 (0-450) /uL Baso # (Auto) 100 (0-100) /uL Sodium 144 (137-145) mmol/L Potassium 3.6 (3.4-5.1) mmol/L Chloride 106 (98-107) mmol/L Carbon Dioxide 27 (22-32) mmol/L BUN 7 (7-17) mg/dL Creatinine 0.60 (0.52-1.04) mg/dL Estimated GFR > 60.0 (>60) mL/min BUN/Creatinine Ratio 11.7 (6-22) Glucose 89 (70-100) mg/dL Calcium 9.0 (8.4-10.2) mg/dL Total Bilirubin 0.3 (0.2-1.3) mg/dL AST 52 H (14-36) IU/L ALT 34 (<35) IU/L Alkaline Phosphatase 46 (38-126) U/L Total Protein 7.8 (6.3-8.2) g/dL Albumin 4.6 (3.5-5.0) g/dL Globulin 3.2 (1.7-4.1) g/dL Albumin/Globulin Ratio 1.4 (1.0-2.8) TSH (0.47-4.68) uIU/mL U Opiates 300ng/mL cut Negative (Negative) Ur Oxycodone Screen Negative (Negative) Urine Methadone Screen Negative (Negative) Ur Barbiturates Screen Negative (Negative) U Tricyclic Antidepress Negative (Negative) Ur Phencyclidine Scrn Negative (Negative) Ur Amphetamines Screen Positive H (Negative) U Methamphetamines Scrn Negative (Negative) Ur MDMA Scrn (Ecstasy) Negative (Negative) U Benzodiazepines Scrn Negative (Negative) Urine Cocaine Screen Negative (Negative) U Marijuana (THC) Screen Positive H (Negative) Ethyl Alcohol 218 H ( - 10) mg/dL 04/28/19 Range/Units 17:22 WBC (4.5-11.0) X10^3/uL RBC (4.0-5.2) X10^6/uL Hgb (12.0-16.0) g/dL Hct (36-46) % MCV (80-100) fL MCH (26-34) PG MCHC (30-36) % RDW (11.6-14.8) % Plt Count (150-400) X10^3/uL Neut % (Auto) (50-75) % Lymph % (Auto) (25-40) % [place] % (Auto) (3-14) % Eos % (Auto) (2-4) % Baso % (Auto) (0-2) % Neut # (Auto) (7409-1902) /uL Lymph # (Auto) (7442-4496) /uL [place] # (Auto) (0-900) /uL Eos # (Auto) (0-450) /uL Baso # (Auto) (0-100) /uL Sodium (137-145) mmol/L Potassium (3.4-5.1) mmol/L Chloride (98-107) mmol/L Carbon Dioxide (22-32) mmol/L BUN (7-17) mg/dL Creatinine (0.52-1.04) mg/dL Estimated GFR (>60) mL/min BUN/Creatinine Ratio (6-22) Glucose (70-100) mg/dL Calcium (8.4-10.2) mg/dL Total Bilirubin (0.2-1.3) mg/dL AST (14-36) IU/L ALT (<35) IU/L Alkaline Phosphatase (38-126) U/L Total Protein (6.3-8.2) g/dL Albumin (3.5-5.0) g/dL Globulin (1.7-4.1) g/dL Albumin/Globulin Ratio (1.0-2.8) TSH 1.86 (0.47-4.68) uIU/mL U Opiates 300ng/mL cut (Negative) Ur Oxycodone Screen (Negative) Urine Methadone Screen (Negative) Ur Barbiturates Screen (Negative) U Tricyclic Antidepress (Negative) Ur Phencyclidine Scrn (Negative) Ur Amphetamines Screen (Negative) U Methamphetamines Scrn (Negative) Ur MDMA Scrn (Ecstasy) (Negative) U Benzodiazepines Scrn (Negative) Urine Cocaine Screen (Negative) U Marijuana (THC) Screen (Negative) Ethyl Alcohol ( - 10) mg/dL Point of Care Testing Test Results Negative Urine Dip Bedside Urine Glucose Negative Bedside Urine Bilirubin - Negative Bedside Urine Ketone - Negative Urine Specific [place] 1.015 Bedside Urine Occult Blood + Bedside Urine pH 6.0 Bedside Urine Protein - Negative Bedside Urine Urobilinogen - Negative Bedside Urine Nitrite - Negative Bedside Urine Leukocytes - Negative Esterase MDM Narrative Medical decision making narrative: The patient is a 24-year-old female who presents with a chief complaint of brings up in, likely related to stopping her proximal. I sent another prescription for short duration of Paxil. Otherwise I told her she has to follow up with primary care provider for this. She denies any thoughts of hurting herself or anybody else. She is legally intoxicated, and I discussed that she cannot drive. Vistaril helped her anxiety so I did se nd in a prescription of it. Discussed at length coming back to the emergency department for any acute concerns such as thoughts of hurting herself or anybody else. Patient declined is usual for her today. Is able to contract for safety. No questions or concerns upon discharge and states understanding of return precautions as well as follow-up care <So Bonilla, DO - Last Filed: 05/01/19 19:31> Lab Data Labs: Lab Results 04/28/19 04/28/19 04/28/19 Range/Units 16:40 17:22 17:22 WBC 6.8 (4.5-11.0) X10^3/uL RBC 4.30 (4.0-5.2) X10^6/uL Hgb 14.5 (12.0-16.0) g/dL Hct 42.6 (36-46) % MCV 99.2 (80-100) fL MCH 33.7 (26-34) PG MCHC 33.9 (30-36) % RDW 13.6 (11.6-14.8) % Plt Count 320 (150-400) X10^3/uL Neut % (Auto) 46.4 L (50-75) % Lymph % (Auto) 42.2 H (25-40) % [place] % (Auto) 8.8 (3-14) % Eos % (Auto) 1.3 L (2-4) % Baso % (Auto) 1.3 (0-2) % Neut # (Auto) 3200 (6475-5748) /uL Lymph # (Auto) 2900 (7685-2819) /uL [place] # (Auto) 600 (0-900) /uL Eos # (Auto) 100 (0-450) /uL Baso # (Auto) 100 (0-100) /uL Sodium 144 (137-145) mmol/L Potassium 3.6 (3.4-5.1) mmol/L Chloride 106 (98-107) mmol/L Carbon Dioxide 27 (22-32) mmol/L BUN 7 (7-17) mg/dL Creatinine 0.60 (0.52-1.04) mg/dL Estimated GFR > 60.0 (>60) mL/min BUN/Creatinine Ratio 11.7 (6-22) Glucose 89 (70-100) mg/dL Calcium 9.0 (8.4-10.2) mg/dL Total Bilirubin 0.3 (0.2-1.3) mg/dL AST 52 H (14-36) IU/L ALT 34 (<35) IU/L Alkaline Phosphatase 46 (38-126) U/L Total Protein 7.8 (6.3-8.2) g/dL Albumin 4.6 (3.5-5.0) g/dL Globulin 3.2 (1.7-4.1) g/dL Albumin/Globulin Ratio 1.4 (1.0-2.8) TSH (0.47-4.68) uIU/mL U Opiates 300ng/mL cut Negative (Negative) Ur Oxycodone Screen Negative (Negative) Urine Methadone Screen Negative (Negative) Ur Barbiturates Screen Negative (Negative) U Tricyclic Antidepress Negative (Negative) Ur Phencyclidine Scrn Negative (Negative) Ur Amphetamines Screen Positive H (Negative) U Methamphetamines Scrn Negative (Negative) Ur MDMA Scrn (Ecstasy) Negative (Negative) U Benzodiazepines Scrn Negative (Negative) Urine Cocaine Screen Negative (Negative) U Marijuana (THC) Screen Positive H (Negative) Ethyl Alcohol 218 H ( - 10) mg/dL 04/28/19 Range/Units 17:22 WBC (4.5-11.0) X10^3/uL RBC (4.0-5.2) X10^6/uL Hgb (12.0-16.0) g/dL Hct (36-46) % MCV (80-100) fL MCH (26-34) PG MCHC (30-36) % RDW (11.6-14.8) % Plt Count (150-400) X10^3/uL Neut % (Auto) (50-75) % Lymph % (Auto) (25-40) % [place] % (Auto) (3-14) % Eos % (Auto) (2-4) % Baso % (Auto) (0-2) % Neut # (Auto) (8650-5283) /uL Lymph # (Auto) (4183-2467) /uL [place] # (Auto) (0-900) /uL Eos # (Auto) (0-450) /uL Baso # (Auto) (0-100) /uL Sodium (137-145) mmol/L Potassium (3.4-5.1) mmol/L Chloride (98-107) mmol/L Carbon Dioxide (22-32) mmol/L BUN (7-17) mg/dL Creatinine (0.52-1.04) mg/dL Estimated GFR (>60) mL/min BUN/Creatinine Ratio (6-22) Glucose (70-100) mg/dL Calcium (8.4-10.2) mg/dL Total Bilirubin (0.2-1.3) mg/dL AST (14-36) IU/L ALT (<35) IU/L Alkaline Phosphatase (38-126) U/L Total Protein (6.3-8.2) g/dL Albumin (3.5-5.0) g/dL Globulin (1.7-4.1) g/dL Albumin/Globulin Ratio (1.0-2.8) TSH 1.86 (0.47-4.68) uIU/mL U Opiates 300ng/mL cut (Negative) Ur Oxycodone Screen (Negative) Urine Methadone Screen (Negative) Ur Barbiturates Screen (Negative) U Tricyclic Antidepress (Negative) Ur Phencyclidine Scrn (Negative) Ur Amphetamines Screen (Negative) U Methamphetamines Scrn (Negative) Ur MDMA Scrn (Ecstasy) (Negative) U Benzodiazepines Scrn (Negative) Urine Cocaine Screen (Negative) U Marijuana (THC) Screen (Negative) Ethyl Alcohol ( - 10) mg/dL Point of Care Testing Test Results Negative Urine Dip Bedside Urine Glucose Negative Bedside Urine Bilirubin - Negative Bedside Urine Ketone - Negative Urine Specific [place] 1.015 Bedside Urine Occult Blood + Bedside Urine pH 6.0 Bedside Urine Protein - Negative Bedside Urine Urobilinogen - Negative Bedside Urine Nitrite - Negative Bedside Urine Leukocytes - Negative Esterase Discharge Plan Departure Patient Disposition: Home Clinical Impression: Anxiety Depression Qualifiers: Depression Type: other depression Qualified Code(s): F32.89 - Other specified depressive episodes Alcohol intoxication Qualifiers: Complication of substance-induced condition: uncomplicated Qualified Code(s): F10.920 - Alcohol use, unspecified with intoxication, uncomplicated Discharge Date/Time: 04/28/19 19:10 Instructions: DI for Depression -- Adult, DI for Alcohol Abuse, DI for Alcohol Poisoning Activity Restrictions/Additional Instructions: I believe that the brain snapping experiences that you have a related to stopping her Paxil. I have sent a small prescription of Paxil to [facility]. I also sent a prescription of Vistaril to [facility] to use as needed for anxiety Please follow-up with primary care physician in the next few days. Please come back to the emergency department for any acute concerns. As discussed, please do not drink and drive. Prescriptions: New paroxetine HCl [Paxil] 20 mg tablet 20 mg PO DAILY Qty: 14 RF: 0 No Action albuterol sulfate 90 mcg/actuation HFA aerosol inhaler 2 puff INHALATION QID PRN (Reason: shortness of breath or wheezing) Qty: 8 RF: 3 fluocinonide 0.05 % cream 1 applictn TOP BID Qty: 30 RF: 1 fluocinonide 0.05 % solution 1 applictn TOP BID Qty: 60 RF: 1 chlordiazepoxide HCl 25 mg capsule 25 mg PO Q12H PRN (Reason: alcohol withdrawal) Qty: 60 RF: 0 lamotrigine 100 mg tablet 100 mg PO BID Qty: 180 RF: 0 clonazepam 1 mg tablet 1 mg PO BID Qty: 60 RF: 1 paroxetine HCl [Paxil] 20 mg tablet 20 mg PO DAILY Qty: 90 RF: 2 dextroamphetamine-amphetamine [Adderall] 20 mg tablet 40 mg PO BID RF: 0 norethindrone-e.estradiol-iron [Mibelas 24 Fe] 1 mg-20 mcg(24) /75 mg (4) tablet,chewable 1 tab PO DAILY RF: 0 Referrals: Wes Becerra DO [Primary Care Provider] -
[2019-04-28 19:08] VITALS: BP 142/83; PULSE 77; RESP 16; O2SAT 100
== END 2019-04-28 19:10 | disposition home or self-care (01) ==
PROVIDERS: Emergency Provider Nurse Practitioner Family; PCP Family Medicine
DX: F41.9 Anxiety disorder, unspecified (principal); F32.89 Other specified depressive episodes; F10.920 Alcohol use, unspecified with intoxication, uncomplicated
CPT/HCPCS: 36415; 80053; 80305; 80320; 81003; 81025; 84443; 85025; 99283; 99284

== ENCOUNTER 2019-08-05 18:13 | Emergency (ER) | payer OTHER, MEDICAID, SELFPAY ==
[2019-08-05 18:20] VITALS: BP 138/94; PULSE 84; RESP 24; TEMP 36.8; O2SAT 98; BMI 20.5
--- NOTE | 2019-08-05 18:26 | DI.RAD.S_ITS ---
PROCEDURE: XR CHEST 1V INDICATIONS: R clavicle pain, CPR TECHNIQUE: One view of the chest was acquired. COMPARISON: None. FINDINGS: Surgical changes and devices: Right nipple piercing. Lungs and pleura: Lungs are clear. No pleural effusions or pneumothorax. Mediastinum: Mediastinal contours appear normal. Heart size is normal. Bones and chest wall: No suspicious bony lesions. Overlying soft tissues appear unremarkable. IMPRESSION: No acute cardiopulmonary disease process. Dictated by: Norah Mooney MD, PhD on 08/05/2019 at 18:49 Approved by: Norah Mooney MD, PhD on 08/05/2019 at 18:50
--- NOTE | 2019-08-05 18:34 | ED.PSYCH ---
HPI - Psych <Nicolasa MartinSARAH - Last Filed: 08/05/19 20:56> General Chief Complaint: Psychiatric Symptoms Stated Complaint: Behavioral,not taking anxiety meds 1 week. Time Seen by Provider: 08/05/19 18:22 Source: patient and EMS Mode of arrival: EMS History of Present Illness HPI Narrative: 24yo female with a history of anxiety, depression, presents to the ED for withdrawal from Adderall and Klonopin, she has been experiencing anxiety, sweating, and nightmares. Patient states she is prescribed these medications by Dr. Becerra. She has not had them for 1.5 weeks but did pick them up today. However, she did not take her medications today. She states she had 6 shots of alcohol today instead to self-medicate. Patient was at a house as a caregiver, she was lying on the floor and a person that she stopped breathing so the started some chest congestion. However, patient awoke immediately. She denies any pain or shortness of breath, fevers, sore throat, dizziness, nausea, vomiting, diarrhea, or any other concerns. She denies any thoughts of hurting herself or other people. She states ?under started withdrawing ?. She is tearful. Related Data Previous Rx's Medication Instructions Recorded albuterol sulfate 90 mcg/actuation 2 puff INHALATION QID PRN #8 gram 11/18/18 aerosol inhaler fluocinonide 0.05 % topical cream 1 applictn TOP BID #30 gram 04/13/19 fluocinonide 0.05 % topical 1 applictn TOP BID #60 ml 04/13/19 solution paroxetine HCl 20 mg tablet 20 mg PO DAILY #90 tab 04/22/19 paroxetine HCl [Paxil] 20 mg PO DAILY #14 tab 04/28/19 chlordiazepoxide HCl 25 mg capsule 25 mg PO Q12H PRN #60 cap 05/01/19 lamotrigine 100 mg tablet 100 mg PO BID #180 tab 05/20/19 norethindrone 1 mg-e. estradiol 20 1 tab PO DAILY #84 tab 05/20/19 mcg (24)-iron 75 mg (4) chew tablet clonazepam 1 mg tablet 1 mg PO BID #14 tab 08/04/19 dextroamphetamine-amphetamine 20 20 mg PO BID #14 tab 06/02/20 mg tablet Allergies Allergy/AdvReac Type Severity Reaction Status Date / Time latex Allergy Severe burning, Verified 08/05/19 18:27 redness <Hoda Goff MD - Last Filed: 08/06/19 18:13> History of Present Illness HPI Narrative: Care is assumed from SARAH Xavier. Long discussion with the patient who is remarkably coherent, however she is demonstrating no insight into overall events, who reports that she has been drinking heavily because she was unable to fill her medications. When questioned why she could not fill her medications she mentions severe memory gaps and loss and she for got pick it up then she got angry that she did not have access to her medications and the story devolves from there. She denies alcohol use disorder and states that she hates being drunk, however the fact that we are having a relatively coherent discussion with alcohol level at 440 suggests significantly heavier drinking and significant tolerance. She does report that she has not slept in 3 days, she feels that she is in the middle of a manic episode, she is absolutely considering suicide and would like to . She is interested in voluntary psychiatric admission to figure out her psychiatric diagnoses and would like very much to be off all medications and would like to choose to not drink. She states that she is able to stop drinking at any time. She absolutely does not identify herself as having any addiction issues at this time. She notes that in her younger years she did have poly substance issues including cocaine, methamphetamine and heroin but has not used any of these drugs for at least 7 years. Additional information from family and friends calling in. A good friend of hers, Taniya ([phone]), calls in and spontaneously offers additional information. He states that Isa has clearly been suicidal this week she had an episode this week where she filled the bathtub up with a plan to get in the tub and slit her wrists. She states that 1 of her neighbors is hunting her (but in a good way), and notes that she has had multiple suicide attempts in the past. He suggests calling her mother, Denia [phone] for corroborating information. Review of Systems <SARAH Rowley - Last Filed: 08/05/19 20:56> Review of Systems Narrative: REVIEW OF SYSTEMS: GENERAL: Denies fevers. HENT: No head trauma. EYES: No vision changes. CARDIOVASCULAR: No chest pain. RESPIRATORY: Denies cough, patient does report feeling short of breath. GASTROINTESTINAL: No nausea vomiting. MUSCULOSKELETAL: No weakness or injury. INTEGUMENTARY: No rash, lesions, or pruritus. NEURO: Reports increased anxiety and withdrawal from medications, see HPI. 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) Irregular menstrual cycle (Inactive ~2005) Psoriasis (Inactive ~2004) Scoliosis (Inactive ~2005) Skin cancer (Inactive ~2014) Family History Mother Skin cancer Mental health problem Grandmother Hypertension Diabetes mellitus Mental health problem Hyperlipidemia Social History marital status: unmarried,single pets and animals: No education level: college occupational status: employed seatbelt use: always helmet use: Yes water heater temp set < 120 deg: Yes working smoke detector in home: Yes fire extinguisher in home: Yes carbon monox detector in home: Yes firearms in home: Yes Smoking Status: Current some day smoker Tobacco: How many years used: 1 Smokeless tobacco user: other quit status: has quit before second hand exposure: No alcohol intake: current substance use type: former substance user and marijuana during the past year weight has: increased > 10 lbs well-balanced diet: daily or most days daily servings fruits/veg: other caffeine: Yes eating out: rarely or never Type(s) of exercise: additional frequency: 3-4 times per week duration: 15-30 minutes/day Smoking Status: Current some day smoker alcohol intake frequency: 3 or more drinks per day Alcohol type: hard liquor Substance Use Type: does not use Exam <Nicolasa MartinSARAH - Last Filed: 08/05/19 20:56> Initial Vital Signs Initial Vital Signs: Vital Signs Temperature 98.3 F 08/05/19 18:20 Pulse Rate 84 08/05/19 18:20 Respiratory Rate 24 08/05/19 18:20 Blood Pressure 138/94 H 08/05/19 18:20 Pulse Oximetry 98 08/05/19 18:20 PHYSICAL EXAMINATION: GENERAL: Well-groomed, patient appears intoxicated. Answers questions fairly appropriately. Oriented to person, place, and situation. HENT: Normocephalic, atraumatic. Ear canals patent. Oral mucosa moist. EYES: PERRLA, Conjunctiva pink, sclera white, no periorbital swelling. No discharge. CHEST: Normal to inspection and without deformities. CARDIOVASCULAR: S1 and S2 sounds normal. Regular rate and rhythm, no murmurs, clicks, or bruits. RESPIRATORY: Normal respiratory rate, trachea midline, airway patent. No stridor, nasal flaring or accessory muscle use. Able to speak in full sentences. Lungs are clear in all larios without wheeze, rhonchi, or crackles. Patient seen hyperventilating initially, this resolved with calm conversation and interaction. MUSCULOSKELETAL: Normal gait and coordination. Equal tone and mass bilaterally. EXTREMITIES: Moves all extremities. SKIN: Warm, dry, soft, appropriate color for ethnicity. No lesions, rashes, or wounds to visualized areas. NEURO: Alert and Oriented X 3. Good coordination. No ataxia or cognitive issues. PSYCH: Patient tearful, reports she is anxious. <Hoda Goff MD - Last Filed: 08/06/19 18:13> Initial Vital Signs Initial Vital Signs: Vital Signs Temperature 98.3 F 08/05/19 18:20 Pulse Rate 84 08/05/19 18:20 Respiratory Rate 24 08/05/19 18:20 Blood Pressure 138/94 H 08/05/19 18:20 Pulse Oximetry 98 08/05/19 18:20 <Quincy Ni DO - Last Filed: 08/06/19 15:18> Initial Vital Signs Initial Vital Signs: Vital Signs Temperature 98.3 F 08/05/19 18:20 Pulse Rate 84 08/05/19 18:20 Respiratory Rate 24 08/05/19 18:20 Blood Pressure 138/94 H 08/05/19 18:20 Pulse Oximetry 98 08/05/19 18:20 Course <Nicolasa Martin, LAUNDRY ROOM ATTENDANT - Last Filed: 08/05/19 20:56> Course Course Narrative: After admission to speak with Aunnaima Sanz, but a request from patient to not give Aunnaima Sanz information, Aunnaima Sanz requested to give back ground information on patient. She stated that patient has struggled with suicidal ideation, cutting of her wrist, alcohol intoxication, and medication abuse for the past few years. She was admitted to [facility] in [place] 1.5-2 years ago. She states patient is lying and that she does not have a nephew here. She does not have any family here at this time. Aunnaima Sanz is concerned that patient is suicidal and is lying to medical staff. She states she has been kicked out of her house with her roommate as her roommate could not tolerate her any more. Aunt Umu's phone number is [phone]. Orders Ordered: Discontinued Medications Diphenhydramine HCl (Benadryl) 50 mg IM NOW ONE Stop: 08/05/19 20:54 Last Admin: 08/05/19 21:09 Dose: 50 mg Documented by: SHAMIKA Haloperidol (Haldol) 10 mg IM NOW ONE Stop: 08/05/19 20:54 Last Admin: 08/05/19 21:09 Dose: 10 mg Documented by: SHAMIKA Lorazepam (Ativan) 1 mg PO NOW ONE Stop: 08/05/19 19:01 Last Admin: 08/05/19 19:06 Dose: 1 mg Documented by: ЮЛИЯ Consultations Consultation #1: Patient staffed with Dr. Goff, discussed test results and plan of care. Patient was signed out to Dr. Goff for further evaluation of treatment. Vital Signs Vital signs: Vital Signs - 8 hr 08/06/19 10:30 08/06/19 11:30 08/06/19 12:00 Pulse Rate 66 73 75 Respiratory Rate Blood Pressure [Left Arm] 117/53 L 114/63 115/55 L Pulse Oximetry 92 98 99 08/06/19 12:30 08/06/19 13:22 08/06/19 14:00 Pulse Rate 73 85 58 L Respiratory Rate Blood Pressure [Left Arm] 135/75 116/54 L 127/58 L Pulse Oximetry 99 99 98 08/06/19 14:30 Pulse Rate 56 L Respiratory Rate 18 Blood Pressure [Left Arm] 121/70 Pulse Oximetry 98 <Hoda Goff MD - Last Filed: 08/06/19 18:13> Orders Ordered: Discontinued Medications Diphenhydramine HCl (Benadryl) 50 mg IM NOW ONE Stop: 08/05/19 20:54 Last Admin: 08/05/19 21:09 Dose: 50 mg Documented by: SHAMIKA Haloperidol (Haldol) 10 mg IM NOW ONE Stop: 08/05/19 20:54 Last Admin: 08/05/19 21:09 Dose: 10 mg Documented by: SHAMIKA Lorazepam (Ativan) 1 mg PO NOW ONE Stop: 08/05/19 19:01 Last Admin: 08/05/19 19:06 Dose: 1 mg Documented by: ЮЛИЯ Vital Signs Vital signs: Vital Signs - 8 hr 08/06/19 10:30 08/06/19 11:30 08/06/19 12:00 Pulse Rate 66 73 75 Respiratory Rate Blood Pressure [Left Arm] 117/53 L 114/63 115/55 L Pulse Oximetry 92 98 99 08/06/19 12:30 08/06/19 13:22 08/06/19 14:00 Pulse Rate 73 85 58 L Respiratory Rate Blood Pressure [Left Arm] 135/75 116/54 L 127/58 L Pulse Oximetry 99 99 98 08/06/19 14:30 Pulse Rate 56 L Respiratory Rate 18 Blood Pressure [Left Arm] 121/70 Pulse Oximetry 98 <Quincy Ni DO - Last Filed: 08/06/19 15:18> Orders Ordered: Discontinued Medications Diphenhydramine HCl (Benadryl) 50 mg IM NOW ONE Stop: 08/05/19 20:54 Last Admin: 08/05/19 21:09 Dose: 50 mg Documented by: SHAMIKA Haloperidol (Haldol) 10 mg IM NOW ONE Stop: 08/05/19 20:54 Last Admin: 08/05/19 21:09 Dose: 10 mg Documented by: SHAMIKA Lorazepam (Ativan) 1 mg PO NOW ONE Stop: 08/05/19 19:01 Last Admin: 08/05/19 19:06 Dose: 1 mg Documented by: ЮЛИЯ Vital Signs Vital signs: Vital Signs - 8 hr 08/06/19 10:30 08/06/19 11:30 08/06/19 12:00 Pulse Rate 66 73 75 Respiratory Rate Blood Pressure [Left Arm] 117/53 L 114/63 115/55 L Pulse Oximetry 92 98 99 08/06/19 12:30 08/06/19 13:22 08/06/19 14:00 Pulse Rate 73 85 58 L Respiratory Rate Blood Pressure [Left Arm] 135/75 116/54 L 127/58 L Pulse Oximetry 99 99 98 08/06/19 14:30 Pulse Rate 56 L Respiratory Rate 18 Blood Pressure [Left Arm] 121/70 Pulse Oximetry 98 MDM - Psych <SARAH Rowley - Last Filed: 08/05/19 20:56> Medical Records Attestation: I reviewed the patient's medical records. Lab Data Attestation: I reviewed the patient's lab results. Result diagrams: 08/05/19 18:50 08/05/19 18:50 Labs: Lab Results 08/05/19 08/05/19 08/05/19 Range/Units 18:35 18:50 18:50 WBC 7.4 (4.5-11.0) X10^3/uL RBC 3.81 L (4.0-5.2) X10^6/uL Hgb 13.1 (12.0-16.0) g/dL Hct 38.0 (36-46) % MCV 99.6 (80-100) fL MCH 34.4 H (26-34) PG MCHC 34.5 (30-36) % RDW 12.9 (11.6-14.8) % Plt Count 331 (150-400) X10^3/uL Neut % (Auto) 39.5 L (50-75) % Lymph % (Auto) 49.2 H (25-40) % Randolph % (Auto) 9.1 (3-14) % Eos % (Auto) 0.6 L (2-4) % Baso % (Auto) 1.6 (0-2) % Neut # (Auto) 2900 (1114-3574) /uL Lymph # (Auto) 3600 (1106-6167) /uL Randolph # (Auto) 700 (0-900) /uL Eos # (Auto) 0 (0-450) /uL Baso # (Auto) 100 (0-100) /uL Sodium 147 H (137-145) mmol/L Potassium 3.6 (3.4-5.1) mmol/L Chloride 110 H (98-107) mmol/L Carbon Dioxide 29 (22-32) mmol/L BUN 8 (7-17) mg/dL Creatinine 0.58 (0.52-1.04) mg/dL Estimated GFR > 60.0 (>60) mL/min BUN/Creatinine Ratio 13.8 (6-22) Glucose 105 H (70-100) mg/dL Calcium 8.7 (8.4-10.2) mg/dL Total Bilirubin 0.3 (0.2-1.3) mg/dL AST 43 H (14-36) IU/L ALT 16 (<35) IU/L Alkaline Phosphatase 47 (38-126) U/L Total Protein 7.3 (6.3-8.2) g/dL Albumin 4.4 (3.5-5.0) g/dL Globulin 2.9 (1.7-4.1) g/dL Albumin/Globulin Ratio 1.5 (1.0-2.8) U Opiates 300ng/mL cut Negative (Negative) Ur Oxycodone Screen Negative (Negative) Urine Methadone Screen Negative (Negative) Ur Barbiturates Screen Negative (Negative) U Tricyclic Antidepress Negative (Negative) Ur Phencyclidine Scrn Negative (Negative) Ur Amphetamines Screen Negative (Negative) U Methamphetamines Scrn Negative (Negative) Ur MDMA Scrn (Ecstasy) Negative (Negative) U Benzodiazepines Scrn Negative (Negative) Urine Cocaine Screen Negative (Negative) U Marijuana (THC) Screen Negative (Negative) Ethyl Alcohol 440 H* ( - 10) mg/dL 08/06/19 Range/Units 09:00 WBC (4.5-11.0) X10^3/uL RBC (4.0-5.2) X10^6/uL Hgb (12.0-16.0) g/dL Hct (36-46) % MCV (80-100) fL MCH (26-34) PG MCHC (30-36) % RDW (11.6-14.8) % Plt Count (150-400) X10^3/uL Neut % (Auto) (50-75) % Lymph % (Auto) (25-40) % Randolph % (Auto) (3-14) % Eos % (Auto) (2-4) % Baso % (Auto) (0-2) % Neut # (Auto) (1594-2162) /uL Lymph # (Auto) (7105-3265) /uL Randolph # (Auto) (0-900) /uL Eos # (Auto) (0-450) /uL Baso # (Auto) (0-100) /uL Sodium (137-145) mmol/L Potassium (3.4-5.1) mmol/L Chloride (98-107) mmol/L Carbon Dioxide (22-32) mmol/L BUN (7-17) mg/dL Creatinine (0.52-1.04) mg/dL Estimated GFR (>60) mL/min BUN/Creatinine Ratio (6-22) Glucose (70-100) mg/dL Calcium (8.4-10.2) mg/dL Total Bilirubin (0.2-1.3) mg/dL AST (14-36) IU/L ALT (<35) IU/L Alkaline Phosphatase (38-126) U/L Total Protein (6.3-8.2) g/dL Albumin (3.5-5.0) g/dL Globulin (1.7-4.1) g/dL Albumin/Globulin Ratio (1.0-2.8) U Opiates 300ng/mL cut (Negative) Ur Oxycodone Screen (Negative) Urine Methadone Screen (Negative) Ur Barbiturates Screen (Negative) U Tricyclic Antidepress (Negative) Ur Phencyclidine Scrn (Negative) Ur Amphetamines Screen (Negative) U Methamphetamines Scrn (Negative) Ur MDMA Scrn (Ecstasy) (Negative) U Benzodiazepines Scrn (Negative) Urine Cocaine Screen (Negative) U Marijuana (THC) Screen (Negative) Ethyl Alcohol 89 H ( - 10) mg/dL Point of Care Testing Test Results Negative Urine Dip Bedside Urine Glucose Negative Bedside Urine Bilirubin - Negative Bedside Urine Ketone - Negative Urine Specific [place] 1.015 Bedside Urine Occult Blood +/- Bedside Urine pH 8.0 Bedside Urine Protein - Negative Bedside Urine Urobilinogen - Negative Bedside Urine Nitrite - Negative Bedside Urine Leukocytes - Negative Esterase Imaging Data Chest x-ray: Radiologist's Impression: [address] [address] XRay Report Signed Patient: Isa Torres CMR#: [id number] : 1995Acct:[id number] Age/Sex: 24 / FDate of Service: 08/05/19 Loc: ED Accession Number: [id number] Procedure: XR chest 1V Ordering Provider: Nicolasa Martin PROCEDURE: XR CHEST 1V INDICATIONS: R clavicle pain, CPR TECHNIQUE: One view of the chest was acquired. COMPARISON: None. FINDINGS: Surgical changes and devices: Right nipple piercing. Lungs and pleura: Lungs are clear. No pleural effusions or pneumothorax. Mediastinum: Mediastinal contours appear normal. Heart size is normal. Bones and chest wall: No suspicious bony lesions. Overlying soft tissues appear unremarkable. IMPRESSION: No acute cardiopulmonary disease process. Dictated by: Norah Mooney MD, PhD on 08/05/2019 at 18:49 Approved by: Norah Mooney MD, PhD on 08/05/2019 at 18:50 MDM Narrative Medical decision making narrative: 24yo female Presenting to the emergency department for complaints of withdrawal from Adderall and Klonopin, also reporting alcohol intoxication. There appears to be clearly a anxiety component to patient's symptoms. Patient is clearly intoxicated with a blood alcohol level of 440. Patient's want his concerns about suicidal ideation and lack of support currently. After discussion with patient, explained that re-evaluation would be appropriate after she metabolizes some for alcohol. At this point we can re-evaluate psychological state. Patient was agreeable. Patient's friend is at the bedside who appears to be soothing to patient. No concern for other medical issues such as cardiac etiology due to lack of chest pain, fractures from attempted CPR due to negative x-ray, for acute abdominal etiology due to lack of abdominal pain and non-remarkable abdominal labs. No benzos or amphetamines for found in patient's urine drug screen. She was given lorazepam to help with anxiety which helped some. Patient has been evaluated by Dr. Goff for further observation and care. <Hoda Goff MD - Last Filed: 08/06/19 18:13> Medical Records Attestation: I reviewed the patient's medical records. Lab Data Attestation: I reviewed the patient's lab results. Labs: Lab Results 08/05/19 08/05/19 08/05/19 Range/Units 18:35 18:50 18:50 WBC 7.4 (4.5-11.0) X10^3/uL RBC 3.81 L (4.0-5.2) X10^6/uL Hgb 13.1 (12.0-16.0) g/dL Hct 38.0 (36-46) % MCV 99.6 (80-100) fL MCH 34.4 H (26-34) PG MCHC 34.5 (30-36) % RDW 12.9 (11.6-14.8) % Plt Count 331 (150-400) X10^3/uL Neut % (Auto) 39.5 L (50-75) % Lymph % (Auto) 49.2 H (25-40) % Randolph % (Auto) 9.1 (3-14) % Eos % (Auto) 0.6 L (2-4) % Baso % (Auto) 1.6 (0-2) % Neut # (Auto) 2900 (9534-6043) /uL Lymph # (Auto) 3600 (9648-6012) /uL Randolph # (Auto) 700 (0-900) /uL Eos # (Auto) 0 (0-450) /uL Baso # (Auto) 100 (0-100) /uL Sodium 147 H (137-145) mmol/L Potassium 3.6 (3.4-5.1) mmol/L Chloride 110 H (98-107) mmol/L Carbon Dioxide 29 (22-32) mmol/L BUN 8 (7-17) mg/dL Creatinine 0.58 (0.52-1.04) mg/dL Estimated GFR > 60.0 (>60) mL/min BUN/Creatinine Ratio 13.8 (6-22) Glucose 105 H (70-100) mg/dL Calcium 8.7 (8.4-10.2) mg/dL Total Bilirubin 0.3 (0.2-1.3) mg/dL AST 43 H (14-36) IU/L ALT 16 (<35) IU/L Alkaline Phosphatase 47 (38-126) U/L Total Protein 7.3 (6.3-8.2) g/dL Albumin 4.4 (3.5-5.0) g/dL Globulin 2.9 (1.7-4.1) g/dL Albumin/Globulin Ratio 1.5 (1.0-2.8) U Opiates 300ng/mL cut Negative (Negative) Ur Oxycodone Screen Negative (Negative) Urine Methadone Screen Negative (Negative) Ur Barbiturates Screen Negative (Negative) U Tricyclic Antidepress Negative (Negative) Ur Phencyclidine Scrn Negative (Negative) Ur Amphetamines Screen Negative (Negative) U Methamphetamines Scrn Negative (Negative) Ur MDMA Scrn (Ecstasy) Negative (Negative) U Benzodiazepines Scrn Negative (Negative) Urine Cocaine Screen Negative (Negative) U Marijuana (THC) Screen Negative (Negative) Ethyl Alcohol 440 H* ( - 10) mg/dL 08/06/19 Range/Units 09:00 WBC (4.5-11.0) X10^3/uL RBC (4.0-5.2) X10^6/uL Hgb (12.0-16.0) g/dL Hct (36-46) % MCV (80-100) fL MCH (26-34) PG MCHC (30-36) % RDW (11.6-14.8) % Plt Count (150-400) X10^3/uL Neut % (Auto) (50-75) % Lymph % (Auto) (25-40) % Randolph % (Auto) (3-14) % Eos % (Auto) (2-4) % Baso % (Auto) (0-2) % Neut # (Auto) (1104-4743) /uL Lymph # (Auto) (0821-5445) /uL Randolph # (Auto) (0-900) /uL Eos # (Auto) (0-450) /uL Baso # (Auto) (0-100) /uL Sodium (137-145) mmol/L Potassium (3.4-5.1) mmol/L Chloride (98-107) mmol/L Carbon Dioxide (22-32) mmol/L BUN (7-17) mg/dL Creatinine (0.52-1.04) mg/dL Estimated GFR (>60) mL/min BUN/Creatinine Ratio (6-22) Glucose (70-100) mg/dL Calcium (8.4-10.2) mg/dL Total Bilirubin (0.2-1.3) mg/dL AST (14-36) IU/L ALT (<35) IU/L Alkaline Phosphatase (38-126) U/L Total Protein (6.3-8.2) g/dL Albumin (3.5-5.0) g/dL Globulin (1.7-4.1) g/dL Albumin/Globulin Ratio (1.0-2.8) U Opiates 300ng/mL cut (Negative) Ur Oxycodone Screen (Negative) Urine Methadone Screen (Negative) Ur Barbiturates Screen (Negative) U Tricyclic Antidepress (Negative) Ur Phencyclidine Scrn (Negative) Ur Amphetamines Screen (Negative) U Methamphetamines Scrn (Negative) Ur MDMA Scrn (Ecstasy) (Negative) U Benzodiazepines Scrn (Negative) Urine Cocaine Screen (Negative) U Marijuana (THC) Screen (Negative) Ethyl Alcohol 89 H ( - 10) mg/dL Point of Care Testing Test Results Negative Urine Dip Bedside Urine Glucose Negative Bedside Urine Bilirubin - Negative Bedside Urine Ketone - Negative Urine Specific [place] 1.015 Bedside Urine Occult Blood +/- Bedside Urine pH 8.0 Bedside Urine Protein - Negative Bedside Urine Urobilinogen - Negative Bedside Urine Nitrite - Negative Bedside Urine Leukocytes - Negative Esterase Imaging Data Chest x-ray: Radiologist's Impression: IMPRESSION: No acute cardiopulmonary disease process. Dictated by: Norah Mooney MD, PhD on 08/05/2019 at 18:49 MDM Narrative Medical decision making narrative: Once patient is examined independently she breaks down crying states that she absolutely is suicidal, requesting help with psychiatric admission and is concerned that she is having a manic episode. Speech is fluent however thought content is tangential and emotionally labile. She continues to complain of severe anxiety despite being dramatically intoxicated. Offered to help with sleep over the course of the evening and re-evaluation once her alcohol level is down to a reasonable level and help with finding a voluntary psychiatric bed for her anxiety, manic episode and suicidal ideation. She requested IM medications as she has ?such a high tolerance to all drugs?. I was able to accommodate that request with IM Haldol and IM Benadryl. No Ativan is given as she is so intoxicated and has already had oral clonazepam prior to return of labs. She is sleeping comfortably in a monitored bed at this time. Will plan on further evaluation and social work intervention in the morning. 1020pm further data and corroboration from her mother, Denia. She reports that Escobar's roommate moved out about a month ago because she could not handle the emotional lability, that Escobar has no job, is not sleeping, is not eating, commonly does not know what time of day it is, has significant memory dysfunction, is unable to care for self, has not been eating and has been describing suicidal thoughts and plans including slitting in the bathtub. The mother is concerned that Escobar is not being forthcoming with the amount of alcohol that she is using and the that her psychiatric and primary care doctor's are not aware of her addiction issues or her current alcohol use. She states she is more than willing to talk to any healthcare provider to offer additional insight and can be reached at [phone] 6am patient has slept comfortably all night. Care will be transferred to Dr. Ni. When she wakes, will need to be reassessed for anxiety and suicidal ideation and will need social worker masters evaluation. Given the significant reports from family members regarding her instability and worsening symptoms over the last 2 weeks if she is no longer interested in voluntary treatment I believe DCR evaluation may well be appropriate <Quincy Ni, DO - Last Filed: 08/06/19 15:18> Lab Data Labs: Lab Results 08/05/19 08/05/19 08/05/19 Range/Units 18:35 18:50 18:50 WBC 7.4 (4.5-11.0) X10^3/uL RBC 3.81 L (4.0-5.2) X10^6/uL Hgb 13.1 (12.0-16.0) g/dL Hct 38.0 (36-46) % MCV 99.6 (80-100) fL MCH 34.4 H (26-34) PG MCHC 34.5 (30-36) % RDW 12.9 (11.6-14.8) % Plt Count 331 (150-400) X10^3/uL Neut % (Auto) 39.5 L (50-75) % Lymph % (Auto) 49.2 H (25-40) % Randolph % (Auto) 9.1 (3-14) % Eos % (Auto) 0.6 L (2-4) % Baso % (Auto) 1.6 (0-2) % Neut # (Auto) 2900 (5631-5760) /uL Lymph # (Auto) 3600 (3324-2079) /uL Randolph # (Auto) 700 (0-900) /uL Eos # (Auto) 0 (0-450) /uL Baso # (Auto) 100 (0-100) /uL Sodium 147 H (137-145) mmol/L Potassium 3.6 (3.4-5.1) mmol/L Chloride 110 H (98-107) mmol/L Carbon Dioxide 29 (22-32) mmol/L BUN 8 (7-17) mg/dL Creatinine 0.58 (0.52-1.04) mg/dL Estimated GFR > 60.0 (>60) mL/min BUN/Creatinine Ratio 13.8 (6-22) Glucose 105 H (70-100) mg/dL Calcium 8.7 (8.4-10.2) mg/dL Total Bilirubin 0.3 (0.2-1.3) mg/dL AST 43 H (14-36) IU/L ALT 16 (<35) IU/L Alkaline Phosphatase 47 (38-126) U/L Total Protein 7.3 (6.3-8.2) g/dL Albumin 4.4 (3.5-5.0) g/dL Globulin 2.9 (1.7-4.1) g/dL Albumin/Globulin Ratio 1.5 (1.0-2.8) U Opiates 300ng/mL cut Negative (Negative) Ur Oxycodone Screen Negative (Negative) Urine Methadone Screen Negative (Negative) Ur Barbiturates Screen Negative (Negative) U Tricyclic Antidepress Negative (Negative) Ur Phencyclidine Scrn Negative (Negative) Ur Amphetamines Screen Negative (Negative) U Methamphetamines Scrn Negative (Negative) Ur MDMA Scrn (Ecstasy) Negative (Negative) U Benzodiazepines Scrn Negative (Negative) Urine Cocaine Screen Negative (Negative) U Marijuana (THC) Screen Negative (Negative) Ethyl Alcohol 440 H* ( - 10) mg/dL 08/06/19 Range/Units 09:00 WBC (4.5-11.0) X10^3/uL RBC (4.0-5.2) X10^6/uL Hgb (12.0-16.0) g/dL Hct (36-46) % MCV (80-100) fL MCH (26-34) PG MCHC (30-36) % RDW (11.6-14.8) % Plt Count (150-400) X10^3/uL Neut % (Auto) (50-75) % Lymph % (Auto) (25-40) % Randolph % (Auto) (3-14) % Eos % (Auto) (2-4) % Baso % (Auto) (0-2) % Neut # (Auto) (6214-9050) /uL Lymph # (Auto) (9084-3949) /uL Randolph # (Auto) (0-900) /uL Eos # (Auto) (0-450) /uL Baso # (Auto) (0-100) /uL Sodium (137-145) mmol/L Potassium (3.4-5.1) mmol/L Chloride (98-107) mmol/L Carbon Dioxide (22-32) mmol/L BUN (7-17) mg/dL Creatinine (0.52-1.04) mg/dL Estimated GFR (>60) mL/min BUN/Creatinine Ratio (6-22) Glucose (70-100) mg/dL Calcium (8.4-10.2) mg/dL Total Bilirubin (0.2-1.3) mg/dL AST (14-36) IU/L ALT (<35) IU/L Alkaline Phosphatase (38-126) U/L Total Protein (6.3-8.2) g/dL Albumin (3.5-5.0) g/dL Globulin (1.7-4.1) g/dL Albumin/Globulin Ratio (1.0-2.8) U Opiates 300ng/mL cut (Negative) Ur Oxycodone Screen (Negative) Urine Methadone Screen (Negative) Ur Barbiturates Screen (Negative) U Tricyclic Antidepress (Negative) Ur Phencyclidine Scrn (Negative) Ur Amphetamines Screen (Negative) U Methamphetamines Scrn (Negative) Ur MDMA Scrn (Ecstasy) (Negative) U Benzodiazepines Scrn (Negative) Urine Cocaine Screen (Negative) U Marijuana (THC) Screen (Negative) Ethyl Alcohol 89 H ( - 10) mg/dL Point of Care Testing Test Results Negative Urine Dip Bedside Urine Glucose Negative Bedside Urine Bilirubin - Negative Bedside Urine Ketone - Negative Urine Specific [place] 1.015 Bedside Urine Occult Blood +/- Bedside Urine pH 8.0 Bedside Urine Protein - Negative Bedside Urine Urobilinogen - Negative Bedside Urine Nitrite - Negative Bedside Urine Leukocytes - Negative Esterase MDM Narrative Medical decision making narrative: Dr ni : 08/06/19 @1029. Patient's alcohol level now below legal limit. I received turned over from night provider. Reviewed patient's history and physical and labs. Just had a discussion with the patient. She states she is no longer suicidal. She does remember coming into the emergency department last night. She does remember telling the emergency provider last night that she has had thoughts of suicide however she told me that she believes that these thoughts are related to her drinking and wanting to stop drinking. She states that she is drinking to offset the issues she is having when she is not on her mental health medications. Patient is calm and cooperative. She is alert oriented x3. Is clinically not intoxicated. Again expressed no suicidal ideations. She does not see a mental health provider. Patient is willing to speak with social Work. Dr ni: Patient has remained calm and stable. She denies suicidal ideation. She was evaluated by social work who feels the patient can be discharged home with good follow-up. I do not feel the patient would meet involuntary admission criteria. She has multiple appointments scheduled for the next couple days as set up by social Work. She was given this information. Patient was given return precautions. She expressed understanding and agreement. Discharge Plan Departure Patient Disposition: Home Clinical Impression: Alcohol intoxication Qualifiers: Complication of substance-induced condition: with unspecified complication Qualified Code(s): F10.929 - Alcohol use, unspecified with intoxication, unspecified Discharge Date/Time: 08/06/19 16:14 Instructions: DI for Alcohol Abuse Activity Restrictions/Additional Instructions: No driving for the next 24 hours or in the future if you drink alcohol. You can return to the emergency department at any point for thoughts of hurting herself and we encourage you to do this. You have several appointments scheduled for the next several days. Tomorrow you should expect a call from [facility] at 1100 hours in the morning. On Saturday if a tele health counseling appointment at 1000 hours with [facility]. You do need to download the [id number] denae for this. You also have a tele health appointment on Saturday at [address] Becerra. Continue all of your other medicines as directed. Prescriptions: No [facility] albuterol sulfate 90 mcg/actuation HFA aerosol inhaler 2 puff INHALATION QID PRN (Reason: shortness of breath or wheezing) Qty: 8 RF: 3 fluocinonide 0.05 % cream 1 applictn TOP BID Qty: 30 RF: 1 fluocinonide 0.05 % solution 1 applictn TOP BID Qty: 60 RF: 1 clonazepam 1 mg tablet 1 mg PO BID Qty: 14 RF: 1 dextroamphetamine-amphetamine [Adderall] 20 mg tablet 20 mg PO BID Qty: 14 RF: 0 chlordiazepoxide HCl 25 mg capsule 25 mg PO Q12H PRN (Reason: alcohol withdrawal) Qty: 60 RF: 0 Hold Instructions: Home Medication placed on hold at Doctor's office paroxetine HCl [Paxil] 20 mg tablet 20 mg PO DAILY Qty: 90 RF: 2 lamotrigine 100 mg tablet 100 mg PO BID Qty: 180 RF: 3 norethindrone-e.estradiol-iron [Mibelas 24 Fe] 1 mg-20 mcg(24) /75 mg (4) tablet,chewable 1 tab PO DAILY Qty: 84 RF: 3 paroxetine HCl [Paxil] 20 mg tablet 20 mg PO DAILY Qty: 14 RF: 0 Referrals: Wes Becerra, [Primary Care Provider] -
--- NOTE | 2019-08-05 18:43 | PC.NURSE ---
Pt states that she is withdrawaling from not taking klonopin and adderall for approx 10 days,she states that she has been self medicating with alcohol. Pt states that she is having nightmares and sweating.
[2019-08-05 18:56] LABS: Add Manual Diff / Slide Review NO; Basophils Absolute Auto 100 /uL (0-100); Basophils Percent Auto 1.6 % (0-2); Eosinophils Absolute Auto 0 /uL (0-450); Eosinophils Percent Auto 0.6 % (2-4); Hemoglobin 13.1 g/dL (12.0-16.0); Lymphocytes Absolute Auto 3600 /uL (1100-4500); Lymphocytes Percent Auto 49.2 % (25-40); Mean Corpuscular HGB Conc 34.5 % (30-36); Mean Corpuscular Hemoglobin 34.4 PG (26-34); Mean Corpuscular Volume 99.6 fL (80-100); Monocytes Absolute Auto 700 /uL (0-900); Monocytes Percent Auto 9.1 % (3-14); Neutrophils Absolute Auto 2900 /uL (1500-7000); Neutrophils Percent Auto 39.5 % (50-75); Platelet Count 331 X10^3/uL (150-400); Red Blood Cell Count 3.81 X10^6/uL (4.0-5.2); Red Cell Distribution Width 12.9 % (11.6-14.8); White Blood Cell Count 7.4 X10^3/uL (4.5-11.0)
[2019-08-05 18:57] LABS: UR Morphine/Opiate cutoff 300 Negative (Negative); Ur Creatinine Normal (Normal); Ur Specific Gravity Normal (Normal); Urine Amphetamines Negative (Negative); Urine Barbiturates Negative (Negative); Urine Benzodiazepines Negative (Negative); Urine Cocaine Negative (Negative); Urine MDMA Negative (Negative); Urine Methadone Negative (Negative); Urine Methamphetamines Negative (Negative); Urine Oxycodone Negative (Negative); Urine Phencyclidine Negative (Negative); Urine Tetrahydrocannabinol Negative (Negative); Urine Tricyclic Antidepressant Negative (Negative); Urine pH Normal (Normal)
[2019-08-05 19:00] VITALS: BP 124/77; PULSE 64; RESP 22; O2SAT 98
[2019-08-05] MEDS: LORazepam 0.5 MG TABLET 1 MG PO (19:06)
[2019-08-05 19:07] LABS: Alanine Aminotransferase 16 IU/L (<35); Albumin 4.4 g/dL (3.5-5.0); Albumin Globulin Ratio 1.5 (1.0-2.8); Alkaline Phosphatase 47 U/L (38-126); Aspartate Aminotransferase 43 IU/L (14-36); BUN Creatinine Ratio 13.8 (6-22); Bilirubin Total 0.3 mg/dL (0.2-1.3); Blood Urea Nitrogen 8 mg/dL (7-17); Calcium 8.7 mg/dL (8.4-10.2); Carbon Dioxide 29 mmol/L (22-32); Chloride 110 mmol/L (98-107); Estimated Glomerular Filt Rate > 60.0 mL/min (>60); Globulin 2.9 g/dL (1.7-4.1); Glucose 105 mg/dL (70-100); HEMOLYSIS < 15 (0-50); Potassium 3.6 mmol/L (3.4-5.1); Sodium 147 mmol/L (137-145); Total Protein 7.3 g/dL (6.3-8.2)
[2019-08-05 19:17] LABS: Ethanol (ETOH) 440 mg/dL
[2019-08-05] MEDS: diphenhydrAMINE 50 MG/ML VIAL IM (21:09)
[2019-08-05] MEDS: HALOPERIDOL 5 MG/ML VIAL 10 MG IM (21:09)
--- NOTE | 2019-08-05 22:30 | PC.NURSE ---
Pt wanted friend called. Friend called back and states unable to come stay with pt jill. States patient has been talking about suicide over past week. states she had filled a bathtub and talked about slitting her wrists. He stated she had commented she was being haunted by a neighbor who had recently . He states she needs psych help and requesting psych hold.
--- NOTE | 2019-08-05 22:30 | PC.NURSE ---
Pt asleep at this time. unable to again ask her about suicidal thoughts or ideation.
[2019-08-06] VITALS (9 sets, daily range): BP systolic 114–135; BP diastolic 53–75; PULSE 56–85; RESP 18; O2SAT 92–99
--- NOTE | 2019-08-06 08:01 | PC.NURSE ---
Delivered food tray. Pt made aware and says thank you but returns to sleeping. appears to be resting comfortably. Respirations even and unlabored.
[2019-08-06 09:17] LABS: Ethanol (ETOH) 89 mg/dL
--- NOTE | 2019-08-06 15:15 | CM.SWNOTE ---
EVENT SALES MANAGER note EVENT SALES MANAGER meets with [facility] and [facility] (see below). Patient is a 24 y/o female who presents to ED due to withdrawals from psych meds. Patient reports that she often runs out of medication each month because she forgets to fill it, and uses alcohol to help with the symptoms of withdrawal when she runs out of medication. Patient's ETOH was 440 mg/dL upon arrival to ED. Per chart, patient verbalized SI and desire for inpatient tx for behavioral health while intoxicated in ED overnight. Patient is not intoxicated during assessment with EVENT SALES MANAGER. Patient denies any SI/HI, and states that she experiences suicidal thoughts when she is intoxicated. Patient reports that she doesn't like alcohol because it makes her feel anxious, but she uses it as a distraction when she starts to feel withdrawals from her psych meds. Patient reports this happens 1x/mo. Patient reports that when she feels suicidal when she is intoxicated, she reaches out to two close friends or the crisis line. Patient and EVENT SALES MANAGER discuss inpatient tx, and patient states she may be interested in the future, but not right now. Patient does express interest in getting established with a counselor and requests support in this. EVENT SALES MANAGER consults with Dr. Ni. Dr. Ni and EVENT SALES MANAGER in agreement that patient does not meet criteria for DCR as she is expressing no suicidality, and is voluntarly requesting additional mental health support. EVENT SALES MANAGER calls patient's PCP to inquire any other information. PCP is out of town, but patient does have an appointment with PCP on 08/10 @ 830am. EVENT SALES MANAGER calls several local behavioral health agencies to set up immediate f/u appt for patient. EVENT SALES MANAGER speaks with Gwen angela [facility], who arranges a tele health appt for patient for Tuesday 10/10 at 10am. EVENT SALES MANAGER calls [facility] team and arranges for post-d/c follow up call for patient for tomorrow at 11 am. EVENT SALES MANAGER reviews these details with patient. Patient is agreeable and expresses thanks for coordinating counseling care. EVENT SALES MANAGER reviewed safety plan for weekend with patient, and patient indicates understanding of what to do if she feels suicidal over weekend. Patient states she plans to refill her meds over the weekend. EVENT SALES MANAGER reviews details of plan with Dr. Ni, who will add appt. times and crisis phone numbers to the discharge paperwork. Pl: Patient to be discharged to home with f/u by [facility], [facility], and PCP Dr. Bceerra. EVENT SALES MANAGER - Feather [employer] Winder Assessment EVENT SALES MANAGER - [employer] [facility] Assessment Start: 08/06/19 14:08 Freq: Status: Active Protocol: Document 08/06/19 14:09 JUAN (Rec: 08/06/19 14:42 JUAN [id number]) EVENT SALES MANAGER/Feather Duster Winder Assessment Time Spent with Patient Start date 08/06/19 Visit Start Time 12:15 End date 08/06/19 Visit End Time 01:10 Total time Care Management spent on 55 patient visit-in minutes Mental Health Screening Include Onset, Duration, Intensity Presenting Problem Patient presented to ED and states she is here due to withdrawal from her psych meds . Patient reports self- medicating with alcohol due to not having her psych meds, and presents to ED with ETOH of 440 mg/dL. Patient reports suicide ideation while intoxicated upon presentation to ED. Precipitating Event(s) Patient reports running out of her pysch meds 4 days prior, and reports experiencing withdrawals from these medications. Current Behavioral Health Provider(s) Patient is enrolled with Dr. Kiara Mcmillan, Provider, [facility]. [facility] for PCP- Psych. Hx Mental Health and Chemical Patient has hx of anxiety, Dependency depression. Patient reports last suicide attempt in 2014, and reports self harm since, but states she has not attempted suicide since then. Patient's psych meds are managed by her PCP, and patient states she often fogets to refill her meds, and runs out each month. During this time, patient reports using alcohol to excess to help cope with the feelings she experiences with the sudden removal of her medications. Patient reports drinking almost a whole fifth of vodka in one hour/daily when this happens. Patient says she doesn't like alcohol when she is not out of her medicine, and states that she will have only up to 1 drink daily when she is not out of her medication. Patient reports running out of her medication and drinking heavily each month. Family Hx of Behavioral Abuse none reported Psychiatric Hospitalizations (date(s)/ Early 2015, following last location) suicide attempt. Patient does not remember the name of the hospital she stayed at. Support System(s) Patient reports having a group of friends locally that she feels safe with, and that she has family in [place] who know the whole story. School/Work Patient currently not in school or working, but is interested in returning to school for [employer] in the future. Mental Status Orientation (Person/Place/Time) Oriented x3 Affect Euthymic, slightly anxious Thought Content - Specify/Describe No obessisions, delusions, or Obsessions, Delusions, Hallucinations hallucinations reported or observed during assessment. Thought Processes (Czhmjfj-Sfyumeev-Wrbt Coherent Pxynsuxl-Pvzuzslr-Pevnheooeh- Lhcodwzvzubgyo-Tfqsrge-Xezgzlynbzbg- Thought Blocking) Speech (Dqsvrk-Bzti-Ouysszh-Rapid-Soft- soft, slow Loud-Pressured) Motor (Pjvlgg-Nkjeidofs-Efgp-Other) normal for context Insight (Present-Partially Present- Partially present Impaired) Judgement (Intact-Impaired) Present Impulse Control (Adequate-Impaired) Present at time of assessment Memory (Fhtcsqhfj-Pigkfp-Yjydsi, Intact x3 Impaired-Intact) Concentration (Intact-Impaired) intact Attention (Intact-Impaired) intact Behavior (Appropriate-Inappropriate) appropriate Additional Comment Patient calm and cooperative throughout visit. Risk Assessment Suicidal Ideation (Plan) No Homicidal Ideation (Plan) No Comment Patient denies SI. Patient reports hx of suicide attempts , last reported attempt in 2014. Patient reports having self-harmed roughly 6 months ago, but states that her goal was not suicide. Patient states she often feels suicidal when she drinks. EVENT SALES MANAGER and patient discuss this and patient report that she doesn' t end up developing a plan and usually calls a friend or finds a way to distract herself when this happens. Intervention Intervention EVENT SALES MANAGER meets with patient and discusses current ED stay. Patient reports that she runs out of her psych meds each month because she forgets to bring the perscription to pharmacy, and uses alcohol to help with the symptoms of withdrawal that she experiences during this time. Patient reports feeling anxious often and offers that she wants to get established with a counselor but is unsure of how to navigate process. EVENT SALES MANAGER and patient discuss suicidality and patient denies any thoughts of wanting to kill or harm herself currently . EVENT SALES MANAGER asked if she had any guns or weapons at home that could be used for suicide. Patient states she does not have guns at home. Patient pauses and then explains that she has a collection of knives that she handmade and that she loves, and patient reports that she would never use these for suicide. Patient reports calling a friend when she experiences SI while drinking. EVENT SALES MANAGER and patient discuss inpatient and outpatient options. Patient states she mentioned inpatient during the night, but is currently not interested in going. EVENT SALES MANAGER provides information to patient and informs her that there are many facilities locally that utilize short term stays, and patient said she may be interested, but not right now. EVENT SALES MANAGER and patient discuss outpatient options and patient provides EVENT SALES MANAGER with verbal permission to coordinate initial outpatient counseling appointment for patient following discharge from ED. EVENT SALES MANAGER consults Dr. Ni who expresses agreement with plan. EVENT SALES MANAGER explains plan to patient and patient expresses understanding and agreement. Plan RA Plan Patient currently denying any SI, and does not present as imminent risk to self or others, and is voluntary for outpatient support. Patient does not meet criteria for BERNARDO /DCR at this time. Patient has f/u appt. with PCP on 08/10, and EVENT SALES MANAGER will assist in coordinating an appointment for establishment of counseling for following day. ION Laguerre
== END 2019-08-06 16:14 | disposition home or self-care (01) ==
PROVIDERS: Emergency Medicine; Nurse Practitioner; Emergency Provider Emergency Medicine; PCP Family Medicine
DX: F10.129 Alcohol abuse with intoxication, unspecified (principal); R07.89 Other chest pain; R45.851 Suicidal ideations; Y90.8 Blood alcohol level of 240 mg/100 ml or more
CPT/HCPCS: 36415; 71045; 80053; 80305; 80320; 81003; 81025; 85025; 96372; 99284; J1200; J1630

== ENCOUNTER 2019-08-13 16:53 | Emergency (ER) | payer OTHER, MEDICAID, SELFPAY ==
[2019-08-13 16:56] VITALS: BP 155/91; PULSE 99; RESP 14; TEMP 36.9; O2SAT 97; BMI 27.3
[2019-08-13 17:31] LABS: Add Manual Diff / Slide Review NO; Basophils Absolute Auto 100 /uL (0-100); Basophils Percent Auto 1.4 % (0-2); Eosinophils Absolute Auto 100 /uL (0-450); Eosinophils Percent Auto 1.2 % (2-4); Hemoglobin 13.2 g/dL (12.0-16.0); Lymphocytes Absolute Auto 2700 /uL (1100-4500); Mean Corpuscular HGB Conc 34.8 % (30-36); Mean Corpuscular Hemoglobin 35.1 PG (26-34); Mean Corpuscular Volume 100.8 fL (80-100); Monocytes Absolute Auto 400 /uL (0-900); Monocytes Percent Auto 6.1 % (3-14); Neutrophils Absolute Auto 3800 /uL (1500-7000); Neutrophils Percent Auto 53.3 % (50-75); Platelet Count 271 X10^3/uL (150-400); Red Blood Cell Count 3.77 X10^6/uL (4.0-5.2); White Blood Cell Count 7.2 X10^3/uL (4.5-11.0)
[2019-08-13] MEDS: LORazepam 0.5 MG TABLET 1 MG PO (17:35)
[2019-08-13] MEDS: diphenhydrAMINE 25 MG TABLET 50 MG PO (17:35)
[2019-08-13] MEDS: haloperidoL 5 MG TABLET PO (17:35)
[2019-08-13 17:40] LABS: Alanine Aminotransferase 17 IU/L (<35); Albumin 4.1 g/dL (3.5-5.0); Albumin Globulin Ratio 1.4 (1.0-2.8); Alkaline Phosphatase 47 U/L (38-126); Aspartate Aminotransferase 46 IU/L (14-36); BUN Creatinine Ratio 13.8 (6-22); Bilirubin Total 0.3 mg/dL (0.2-1.3); Bilirubin Unconjugated 0.2 mg/dL (0.0-1.1); Blood Urea Nitrogen 8 mg/dL (7-17); Carbon Dioxide 26 mmol/L (22-32); Chloride 111 mmol/L (98-107); Estimated Glomerular Filt Rate > 60.0 mL/min (>60); Glucose 100 mg/dL (70-100); HEMOLYSIS < 15 (0-50); Lipase 238 U/L (23-300); Magnesium 2.3 mg/dL (1.6-2.3); Potassium 4.1 mmol/L (3.4-5.1); Sodium 146 mmol/L (137-145); Total Protein 7.1 g/dL (6.3-8.2)
--- NOTE | 2019-08-13 17:50 | PC.NURSE ---
Pt yelling at staff,crying and states that she just needs her meds.
--- NOTE | 2019-08-13 17:51 | PC.NURSE ---
while registration was in room to speak to pt she apparently threw herself to the floor off the stretcher. Romario Ayala saw the incident. pt told Citlaly Bragg that her butt hurt after falling to the ground,immediately the stretcher was removed and mattress placed on the floor
--- NOTE | 2019-08-13 17:51 | PC.NURSE ---
pts necklace, phone, slippers, purse, and sweatshirt are in a labelled belongings bag in a locked cabinet.
[2019-08-13 17:54] LABS: Ethanol (ETOH) 461 mg/dL
--- NOTE | 2019-08-13 18:01 | PC.NURSE ---
pt laying on mattress on the floor. Pt is currently calm and has her eyes closed. Door is open and lights are off
--- NOTE | 2019-08-13 18:30 | PC.NURSE ---
pt laying on her side on the mattress. Her chest is rising and falling at a normal pace.
--- NOTE | 2019-08-13 18:46 | PC.NURSE ---
pt laying on mattress on side. Pts eyes are closed and chest is rising and falling
--- NOTE | 2019-08-13 19:01 | PC.NURSE ---
pt laying down, eyes closed and chest rising and falling at normal rate
--- NOTE | 2019-08-13 19:17 | PC.NURSE ---
Pts eyes are closed, chest is rising and falling
--- NOTE | 2019-08-13 19:38 | PC.NURSE ---
pt laying on mattress on ground. Her eyes are closed and chest is rising and falling
--- NOTE | 2019-08-13 19:56 | PC.NURSE ---
pt laying down. Eyes closed and chest is rising and falling
--- NOTE | 2019-08-13 20:01 | PC.NURSE ---
Parrish king on pt watch. Pt is resting eyes closed chest rising and falling
--- NOTE | 2019-08-13 20:16 | PC.NURSE ---
Pt lying on mat on floor. sleeping eyes closed chest rising and falling
--- NOTE | 2019-08-13 20:30 | PC.NURSE ---
Pt. resting on mat. eyes closed chest rising and falling
--- NOTE | 2019-08-13 20:45 | PC.NURSE ---
resting eyes shut chest rising and falling
--- NOTE | 2019-08-13 21:00 | PC.NURSE ---
pt resting eyes shut chest rising and falling
--- NOTE | 2019-08-13 21:01 | ED_ITS ---
HPI - Psych <SHAVON Mcdaniel - Last Filed: 08/13/19 21:14> General Chief Complaint: Psychiatric Symptoms Stated Complaint: mental illness issues Time Seen by Provider: 08/13/19 16:57 Source: patient and EMS Mode of arrival: EMS Limitations: altered mental status (Intoxicated) History of Present Illness HPI Narrative: The patient is a 24-year-old female current smoker with history of alcohol intoxication who presents by EMS for chief complaint of mental health issues. She last week for similar complaints. Her family called 911 today because she was drinking excessive alcohol they were worried for her safety. Per EMS the patient declines any thoughts of hurting herself or anybody else, but she does make vague suicidal comments upon arrival and states that she tried to cut herself a few days ago. She states she is out of her medications and just needs refills and to go home. Related Data Previous Rx's Medication Instructions Recorded albuterol sulfate 90 mcg/actuation 2 puff INHALATION QID PRN #8 gram 11/18/18 aerosol inhaler fluocinonide 0.05 % topical cream 1 applictn TOP BID #30 gram 04/13/19 fluocinonide 0.05 % topical 1 applictn TOP BID #60 ml 04/13/19 solution paroxetine HCl 20 mg tablet 20 mg PO DAILY #90 tab 04/22/19 chlordiazepoxide HCl 25 mg capsule 25 mg PO Q12H PRN #60 cap 05/01/19 lamotrigine 100 mg tablet 100 mg PO BID #180 tab 05/20/19 norethindrone 1 mg-e. estradiol 20 1 tab PO DAILY #84 tab 05/20/19 mcg (24)-iron 75 mg (4) chew tablet clonazepam 1 mg tablet 1 mg PO BID #14 tab 08/04/19 Allergies Allergy/AdvReac Type Severity Reaction Status Date / Time latex Allergy Severe burning, Verified 08/13/19 17:01 redness Review of Systems <SHAVON Mcdaniel - Last Filed: 08/13/19 21:14> Review of Systems Narrative: GENERAL: Denies chills, fatigue, malaise, fever, sweats. HEENT: Denies sinus pain, ear pain, sore throat, difficulty swallowing, dizziness. RESPIRATORY: Denies dyspnea, cough, wheezing, hemoptysis, sputum. CARDIOVASCULAR: Denies chest pain, palpitations, orthopnea, edema, GASTROINTESTINAL: Denies nausea, vomiting, abdominal pain, diarrhea, constipation, melena. : Denies dysuria, frequency, incontinence, hematuria, urinary retention. MUSCULOSKELETAL: denies weakness, joint pain, or bony pain SKIN: Denies rash, skin lesions, or other NEUROLOGIC: See HPI PSYCHIATRIC: No concerning psychosocial issues. 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) Irregular menstrual cycle (Inactive ~2005) Psoriasis (Inactive ~2004) Scoliosis (Inactive ~2005) Skin cancer (Inactive ~2014) Family History Mother Skin cancer Mental health problem Grandmother Hypertension Diabetes mellitus Mental health problem Hyperlipidemia Social History marital status: unmarried,single pets and animals: No education level: college occupational status: employed seatbelt use: always helmet use: Yes water heater temp set < 120 deg: Yes working smoke detector in home: Yes fire extinguisher in home: Yes carbon monox detector in home: Yes firearms in home: Yes Smoking Status: Current some day smoker Tobacco: How many years used: 1 Smokeless tobacco user: other quit status: has quit before second hand exposure: No alcohol intake: current substance use type: former substance user and marijuana during the past year weight has: increased > 10 lbs well-balanced diet: daily or most days daily servings fruits/veg: other caffeine: Yes eating out: rarely or never Type(s) of exercise: additional frequency: 3-4 times per week duration: 15-30 minutes/day Smoking Status: Current some day smoker alcohol intake frequency: 3 or more drinks per day Alcohol type: hard liquor Substance Use Type: marijuana Exam <So RENEE Bragg-BC - Last Filed: 08/13/19 21:14> Narrative Exam Narrative: GENERAL: This is a well-nourished, well-developed patient, crying and yelling HEAD: Atraumatic. Normocephalic. No temporal or scalp tenderness. EYES: Pupils equal round and reactive. Extraocular motions intact. No scleral icterus. No injection or drainage. ENT: Nose without bleeding, purulent drainage or septal hematoma. Throat without erythema, tonsillar hypertrophy or exudate. Uvula midline. Airway patent. NECK: Trachea midline. No JVD or lymphadenopathy. Supple, nontender, no meningeal signs. CARDIOVASCULAR: Regular rate and rhythm RESPIRATORY: Clear to auscultation. Breath sounds equal bilaterally. No wheezes, rales, or rhonchi. No cough. No increased respiratory effort. No accessory muscle use GASTROINTESTINAL: Abdomen soft, non-tender, nondistended. No hepato- splenomegaly, or palpable masses. No guarding. EXTREMITIES: No clubbing, cyanosis, or edema. No joint tenderness, effusion, or edema noted. BACK: Nontender without deformity or crepitance. No flank tenderness. NEURO: AOx3. Slightly unsteady gait. Crying, yelling and swearing at time SKIN: Superficial lacerations noted on left wrist. Abrasions noted on fingers of right hand. Initial Vital Signs Initial Vital Signs: Vital Signs Temperature 98.4 F 08/13/19 16:56 Pulse Rate 99 H 08/13/19 16:56 Respiratory Rate 14 08/13/19 16:56 Blood Pressure 155/91 H 08/13/19 16:56 Pulse Oximetry 97 08/13/19 16:56 <Micheal Pastrana MD - Last Filed: 08/16/19 07:31> Initial Vital Signs Initial Vital Signs: Vital Signs Temperature 98.4 F 08/13/19 16:56 Pulse Rate 99 H 08/13/19 16:56 Respiratory Rate 14 08/13/19 16:56 Blood Pressure 155/91 H 08/13/19 16:56 Pulse Oximetry 97 08/13/19 16:56 <Hoda Goff MD - Last Filed: 08/15/19 01:51> Initial Vital Signs Initial Vital Signs: Vital Signs Temperature 98.4 F 08/13/19 16:56 Pulse Rate 99 H 08/13/19 16:56 Respiratory Rate 14 08/13/19 16:56 Blood Pressure 155/91 H 08/13/19 16:56 Pulse Oximetry 97 08/13/19 16:56 Scores <SHAVON Mcdaniel - Last Filed: 08/13/19 21:14> GCS [place] coma scale eye opening: Spontaneous [place] coma scale verbal response: Orientated [place] coma scale motor response: Obey commands [place] coma scale total score: 15 Course <SHAVON Mcdaniel - Last Filed: 08/13/19 21:14> Orders Ordered: Discontinued Medications Diazepam (Valium) 10 mg PO NOW ONE Stop: 08/14/19 19:33 Last Admin: 08/14/19 19:37 Dose: 10 mg Documented by: SHAMIKA Diazepam (Valium) 10 mg PO NOW ONE Stop: 08/14/19 20:33 Last Admin: 08/14/19 20:44 Dose: 10 mg Documented by: IDANIA Diazepam (Valium) 5 mg PO NOW ONE Stop: 08/15/19 09:00 Last Admin: 08/15/19 09:03 Dose: 5 mg Documented by: RAIZA Diphenhydramine HCl (Benadryl) 50 mg PO NOW ONE Stop: 08/13/19 17:26 Last Admin: 08/13/19 17:35 Dose: 50 mg Documented by: ЮЛИЯ Haloperidol (Haldol) 5 mg PO NOW ONE Stop: 08/13/19 17:29 Last Admin: 08/13/19 17:35 Dose: 5 mg Documented by: AZIZAOTEM Lorazepam (Ativan) 1 mg PO NOW ONE Stop: 08/13/19 17:22 Last Admin: 08/13/19 17:35 Dose: 1 mg Documented by: KBROTEM Lorazepam (Ativan) 2 mg PO NOW ONE Stop: 08/14/19 15:15 Last Admin: 08/14/19 15:20 Dose: 2 mg Documented by: FEAPO Lorazepam (Ativan) 2 mg PO NOW ONE Stop: 08/14/19 17:09 Last Admin: 08/14/19 17:10 Dose: 2 mg Documented by: IDANIA Consultations Consultation #1: I spoke with Marco LEMON regarding the patient. He states that given that she has been to this facility with very elevated alcohols twice recently he suggests that the patient not be allowed to leave as per [place] law. Additionally the patient is making vague suicidal statements. Thus the placed was placed on one-to-one, placed on suicide precautions and changed describes after she urinated in her pants. Time: 17:30 Vital Signs Vital signs: Vital Signs - 8 hr 08/15/19 08:58 Pulse Rate 111 H Respiratory Rate 16 Blood Pressure [Left Arm] 110/79 Pulse Oximetry 97 <Micheal Pastrana MD - Last Filed: 08/16/19 07:31> Orders Ordered: Discontinued Medications Diazepam (Valium) 10 mg PO NOW ONE Stop: 08/14/19 19:33 Last Admin: 08/14/19 19:37 Dose: 10 mg Documented by: SHAMIKA Diazepam (Valium) 10 mg PO NOW ONE Stop: 08/14/19 20:33 Last Admin: 08/14/19 20:44 Dose: 10 mg Documented by: IDANIA Diazepam (Valium) 5 mg PO NOW ONE Stop: 08/15/19 09:00 Last Admin: 08/15/19 09:03 Dose: 5 mg Documented by: RAIZA Diphenhydramine HCl (Benadryl) 50 mg PO NOW ONE Stop: 08/13/19 17:26 Last Admin: 08/13/19 17:35 Dose: 50 mg Documented by: ЮЛИЯ Haloperidol (Haldol) 5 mg PO NOW ONE Stop: 08/13/19 17:29 Last Admin: 08/13/19 17:35 Dose: 5 mg Documented by: MAURICIOM Lorazepam (Ativan) 1 mg PO NOW ONE Stop: 08/13/19 17:22 Last Admin: 08/13/19 17:35 Dose: 1 mg Documented by: AZIZAOTEM Lorazepam (Ativan) 2 mg PO NOW ONE Stop: 08/14/19 15:15 Last Admin: 08/14/19 15:20 Dose: 2 mg Documented by: IDANIA Lorazepam (Ativan) 2 mg PO NOW ONE Stop: 08/14/19 17:09 Last Admin: 08/14/19 17:10 Dose: 2 mg Documented by: IDANIA Vital Signs Vital signs: Vital Signs - 8 hr 08/15/19 08:58 Pulse Rate 111 H Respiratory Rate 16 Blood Pressure [Left Arm] 110/79 Pulse Oximetry 97 <Hoda Goff MD - Last Filed: 08/15/19 01:51> Orders Ordered: Discontinued Medications Diazepam (Valium) 10 mg PO NOW ONE Stop: 08/14/19 19:33 Last Admin: 08/14/19 19:37 Dose: 10 mg Documented by: SHAMIKA Diazepam (Valium) 10 mg PO NOW ONE Stop: 08/14/19 20:33 Last Admin: 08/14/19 20:44 Dose: 10 mg Documented by: IDANIA Diazepam (Valium) 5 mg PO NOW ONE Stop: 08/15/19 09:00 Last Admin: 08/15/19 09:03 Dose: 5 mg Documented by: RAIZA Diphenhydramine HCl (Benadryl) 50 mg PO NOW ONE Stop: 08/13/19 17:26 Last Admin: 08/13/19 17:35 Dose: 50 mg Documented by: ЮЛИЯ Haloperidol (Haldol) 5 mg PO NOW ONE Stop: 08/13/19 17:29 Last Admin: 08/13/19 17:35 Dose: 5 mg Documented by: MAURICIOM Lorazepam (Ativan) 1 mg PO NOW ONE Stop: 08/13/19 17:22 Last Admin: 08/13/19 17:35 Dose: 1 mg Documented by: AZIZAOTEM Lorazepam (Ativan) 2 mg PO NOW ONE Stop: 08/14/19 15:15 Last Admin: 08/14/19 15:20 Dose: 2 mg Documented by: IDANIA Lorazepam (Ativan) 2 mg PO NOW ONE Stop: 08/14/19 17:09 Last Admin: 08/14/19 17:10 Dose: 2 mg Documented by: IDANIA Vital Signs Vital signs: Vital Signs - 8 hr 08/15/19 08:58 Pulse Rate 111 H Respiratory Rate 16 Blood Pressure [Left Arm] 110/79 Pulse Oximetry 97 MDM - Psych <SHAVON Mcdaniel - Last Filed: 08/13/19 21:14> Lab Data Result diagrams: 08/13/19 17:20 06/11/20 17:20 Labs: Lab Results 08/13/19 08/13/19 08/14/19 Range/Units 17:20 17:20 09:18 WBC 7.2 (4.5-11.0) X10^3/uL RBC 3.77 L (4.0-5.2) X10^6/uL Hgb 13.2 (12.0-16.0) g/dL Hct 38.0 (36-46) % MCV 100.8 H (80-100) fL MCH 35.1 H (26-34) PG MCHC 34.8 (30-36) % RDW 13.0 (11.6-14.8) % Plt Count 271 (150-400) X10^3/uL Neut % (Auto) 53.3 (50-75) % Lymph % (Auto) 38.0 (25-40) % [place] % (Auto) 6.1 (3-14) % Eos % (Auto) 1.2 L (2-4) % Baso % (Auto) 1.4 (0-2) % Neut # (Auto) 3800 (1295-0455) /uL Lymph # (Auto) 2700 (0689-9947) /uL [place] # (Auto) 400 (0-900) /uL Eos # (Auto) 100 (0-450) /uL Baso # (Auto) 100 (0-100) /uL Sodium 146 H (137-145) mmol/L Potassium 4.1 (3.4-5.1) mmol/L Chloride 111 H (98-107) mmol/L Carbon Dioxide 26 (22-32) mmol/L BUN 8 (7-17) mg/dL Creatinine 0.58 (0.52-1.04) mg/dL Estimated GFR > 60.0 (>60) mL/min BUN/Creatinine Ratio 13.8 (6-22) Glucose 100 (70-100) mg/dL Calcium 8.0 L (8.4-10.2) mg/dL Magnesium 2.3 (1.6-2.3) mg/dL Total Bilirubin 0.3 (0.2-1.3) mg/dL Conjugated Bilirubin 0.0 (0.0-0.3) md/dL Unconjugated Bilirubin 0.2 (0.0-1.1) mg/dL AST 46 H (14-36) IU/L ALT 17 (<35) IU/L Alkaline Phosphatase 47 (38-126) U/L Total Protein 7.1 (6.3-8.2) g/dL Albumin 4.1 (3.5-5.0) g/dL Globulin 3.0 (1.7-4.1) g/dL Albumin/Globulin Ratio 1.4 (1.0-2.8) Lipase 238 (23-300) U/L U Opiates 300ng/mL cut Negative (Negative) Ur Oxycodone Screen Negative (Negative) Urine Methadone Screen Negative (Negative) Ur Barbiturates Screen Negative (Negative) U Tricyclic Antidepress Negative (Negative) Ur Phencyclidine Scrn Negative (Negative) Ur Amphetamines Screen Negative (Negative) U Methamphetamines Scrn Negative (Negative) Ur MDMA Scrn (Ecstasy) Negative (Negative) U Benzodiazepines Scrn Negative (Negative) Urine Cocaine Screen Negative (Negative) U Marijuana (THC) Screen Positive H (Negative) Ethyl Alcohol 461 H* ( - 10) mg/dL 08/14/19 Range/Units 16:30 WBC (4.5-11.0) X10^3/uL RBC (4.0-5.2) X10^6/uL Hgb (12.0-16.0) g/dL Hct (36-46) % MCV (80-100) fL MCH (26-34) PG MCHC (30-36) % RDW (11.6-14.8) % Plt Count (150-400) X10^3/uL Neut % (Auto) (50-75) % Lymph % (Auto) (25-40) % [place] % (Auto) (3-14) % Eos % (Auto) (2-4) % Baso % (Auto) (0-2) % Neut # (Auto) (3743-1961) /uL Lymph # (Auto) (5421-3798) /uL [place] # (Auto) (0-900) /uL Eos # (Auto) (0-450) /uL Baso # (Auto) (0-100) /uL Sodium (137-145) mmol/L Potassium (3.4-5.1) mmol/L Chloride (98-107) mmol/L Carbon Dioxide (22-32) mmol/L BUN (7-17) mg/dL Creatinine (0.52-1.04) mg/dL Estimated GFR (>60) mL/min BUN/Creatinine Ratio (6-22) Glucose (70-100) mg/dL Calcium (8.4-10.2) mg/dL Magnesium (1.6-2.3) mg/dL Total Bilirubin (0.2-1.3) mg/dL Conjugated Bilirubin (0.0-0.3) md/dL Unconjugated Bilirubin (0.0-1.1) mg/dL AST (14-36) IU/L ALT (<35) IU/L Alkaline Phosphatase (38-126) U/L Total Protein (6.3-8.2) g/dL Albumin (3.5-5.0) g/dL Globulin (1.7-4.1) g/dL Albumin/Globulin Ratio (1.0-2.8) Lipase (23-300) U/L U Opiates 300ng/mL cut (Negative) Ur Oxycodone Screen (Negative) Urine Methadone Screen (Negative) Ur Barbiturates Screen (Negative) U Tricyclic Antidepress (Negative) Ur Phencyclidine Scrn (Negative) Ur Amphetamines Screen (Negative) U Methamphetamines Scrn (Negative) Ur MDMA Scrn (Ecstasy) (Negative) U Benzodiazepines Scrn (Negative) Urine Cocaine Screen (Negative) U Marijuana (THC) Screen (Negative) Ethyl Alcohol < 10 ( - 10) mg/dL Point of Care Testing Test Results Negative Urine Dip Bedside Urine Glucose Negative Bedside Urine Bilirubin - Negative Bedside Urine Ketone - Negative Urine Specific [place] 1.025 Bedside Urine Occult Blood - Negative Bedside Urine pH 6.0 Bedside Urine Protein - Negative Bedside Urine Urobilinogen +/- 1mg Bedside Urine Nitrite - Negative Bedside Urine Leukocytes - Negative Esterase MDM Narrative Medical decision making narrative: The patient is a 24-year-old female who presents with a chief complaint of suicidal thoughts and alcohol intoxication. She is placed on one-to-one, placed on suicide precautions. Given that she was yelling and swearing at staff, she was given p.o. medications in the emergency department to help treat her anxiety. I spoke with Marco LEMON, suggest that the patient be kept in the emergency department as per [place] is a lot and that she will sober up overnight and he will see her tomorrow. Her alcohol on initial arrival is 461. After p.o. medications, she is able to sleep in no acute distress. We are still waiting on urine sample as the patient urinated herself several times and presented a urine sample that was dipped and water to ?clean it. Patient signed out to Dr Goff at 21:10 in no acute distress. <Micheal Pastrana MD - Last Filed: 08/16/19 07:31> Lab Data Labs: Lab Results 08/13/19 08/13/19 08/14/19 Range/Units 17:20 17:20 09:18 WBC 7.2 (4.5-11.0) X10^3/uL RBC 3.77 L (4.0-5.2) X10^6/uL Hgb 13.2 (12.0-16.0) g/dL Hct 38.0 (36-46) % MCV 100.8 H (80-100) fL MCH 35.1 H (26-34) PG MCHC 34.8 (30-36) % RDW 13.0 (11.6-14.8) % Plt Count 271 (150-400) X10^3/uL Neut % (Auto) 53.3 (50-75) % Lymph % (Auto) 38.0 (25-40) % [place] % (Auto) 6.1 (3-14) % Eos % (Auto) 1.2 L (2-4) % Baso % (Auto) 1.4 (0-2) % Neut # (Auto) 3800 (4646-0635) /uL Lymph # (Auto) 2700 (2032-2163) /uL [place] # (Auto) 400 (0-900) /uL Eos # (Auto) 100 (0-450) /uL Baso # (Auto) 100 (0-100) /uL Sodium 146 H (137-145) mmol/L Potassium 4.1 (3.4-5.1) mmol/L Chloride 111 H (98-107) mmol/L Carbon Dioxide 26 (22-32) mmol/L BUN 8 (7-17) mg/dL Creatinine 0.58 (0.52-1.04) mg/dL Estimated GFR > 60.0 (>60) mL/min BUN/Creatinine Ratio 13.8 (6-22) Glucose 100 (70-100) mg/dL Calcium 8.0 L (8.4-10.2) mg/dL Magnesium 2.3 (1.6-2.3) mg/dL Total Bilirubin 0.3 (0.2-1.3) mg/dL Conjugated Bilirubin 0.0 (0.0-0.3) md/dL Unconjugated Bilirubin 0.2 (0.0-1.1) mg/dL AST 46 H (14-36) IU/L ALT 17 (<35) IU/L Alkaline Phosphatase 47 (38-126) U/L Total Protein 7.1 (6.3-8.2) g/dL Albumin 4.1 (3.5-5.0) g/dL Globulin 3.0 (1.7-4.1) g/dL Albumin/Globulin Ratio 1.4 (1.0-2.8) Lipase 238 (23-300) U/L U Opiates 300ng/mL cut Negative (Negative) Ur Oxycodone Screen Negative (Negative) Urine Methadone Screen Negative (Negative) Ur Barbiturates Screen Negative (Negative) U Tricyclic Antidepress Negative (Negative) Ur Phencyclidine Scrn Negative (Negative) Ur Amphetamines Screen Negative (Negative) U Methamphetamines Scrn Negative (Negative) Ur MDMA Scrn (Ecstasy) Negative (Negative) U Benzodiazepines Scrn Negative (Negative) Urine Cocaine Screen Negative (Negative) U Marijuana (THC) Screen Positive H (Negative) Ethyl Alcohol 461 H* ( - 10) mg/dL 08/14/19 Range/Units 16:30 WBC (4.5-11.0) X10^3/uL RBC (4.0-5.2) X10^6/uL Hgb (12.0-16.0) g/dL Hct (36-46) % MCV (80-100) fL MCH (26-34) PG MCHC (30-36) % RDW (11.6-14.8) % Plt Count (150-400) X10^3/uL Neut % (Auto) (50-75) % Lymph % (Auto) (25-40) % [place] % (Auto) (3-14) % Eos % (Auto) (2-4) % Baso % (Auto) (0-2) % Neut # (Auto) (6950-7706) /uL Lymph # (Auto) (8336-1647) /uL [place] # (Auto) (0-900) /uL Eos # (Auto) (0-450) /uL Baso # (Auto) (0-100) /uL Sodium (137-145) mmol/L Potassium (3.4-5.1) mmol/L Chloride (98-107) mmol/L Carbon Dioxide (22-32) mmol/L BUN (7-17) mg/dL Creatinine (0.52-1.04) mg/dL Estimated GFR (>60) mL/min BUN/Creatinine Ratio (6-22) Glucose (70-100) mg/dL Calcium (8.4-10.2) mg/dL Magnesium (1.6-2.3) mg/dL Total Bilirubin (0.2-1.3) mg/dL Conjugated Bilirubin (0.0-0.3) md/dL Unconjugated Bilirubin (0.0-1.1) mg/dL AST (14-36) IU/L ALT (<35) IU/L Alkaline Phosphatase (38-126) U/L Total Protein (6.3-8.2) g/dL Albumin (3.5-5.0) g/dL Globulin (1.7-4.1) g/dL Albumin/Globulin Ratio (1.0-2.8) Lipase (23-300) U/L U Opiates 300ng/mL cut (Negative) Ur Oxycodone Screen (Negative) Urine Methadone Screen (Negative) Ur Barbiturates Screen (Negative) U Tricyclic Antidepress (Negative) Ur Phencyclidine Scrn (Negative) Ur Amphetamines Screen (Negative) U Methamphetamines Scrn (Negative) Ur MDMA Scrn (Ecstasy) (Negative) U Benzodiazepines Scrn (Negative) Urine Cocaine Screen (Negative) U Marijuana (THC) Screen (Negative) Ethyl Alcohol < 10 ( - 10) mg/dL Point of Care Testing Test Results Negative Urine Dip Bedside Urine Glucose Negative Bedside Urine Bilirubin - Negative Bedside Urine Ketone - Negative Urine Specific [place] 1.025 Bedside Urine Occult Blood - Negative Bedside Urine pH 6.0 Bedside Urine Protein - Negative Bedside Urine Urobilinogen +/- 1mg Bedside Urine Nitrite - Negative Bedside Urine Leukocytes - Negative Esterase <Hoda Goff MD - Last Filed: 08/15/19 01:51> Medical Records Attestation: I reviewed the patient's medical records. Lab Data Attestation: I reviewed the patient's lab results. Labs: Lab Results 08/13/19 08/13/19 08/14/19 Range/Units 17:20 17:20 09:18 WBC 7.2 (4.5-11.0) X10^3/uL RBC 3.77 L (4.0-5.2) X10^6/uL Hgb 13.2 (12.0-16.0) g/dL Hct 38.0 (36-46) % MCV 100.8 H (80-100) fL MCH 35.1 H (26-34) PG MCHC 34.8 (30-36) % RDW 13.0 (11.6-14.8) % Plt Count 271 (150-400) X10^3/uL Neut % (Auto) 53.3 (50-75) % Lymph % (Auto) 38.0 (25-40) % [place] % (Auto) 6.1 (3-14) % Eos % (Auto) 1.2 L (2-4) % Baso % (Auto) 1.4 (0-2) % Neut # (Auto) 3800 (3883-2451) /uL Lymph # (Auto) 2700 (0785-6857) /uL [place] # (Auto) 400 (0-900) /uL Eos # (Auto) 100 (0-450) /uL Baso # (Auto) 100 (0-100) /uL Sodium 146 H (137-145) mmol/L Potassium 4.1 (3.4-5.1) mmol/L Chloride 111 H (98-107) mmol/L Carbon Dioxide 26 (22-32) mmol/L BUN 8 (7-17) mg/dL Creatinine 0.58 (0.52-1.04) mg/dL Estimated GFR > 60.0 (>60) mL/min BUN/Creatinine Ratio 13.8 (6-22) Glucose 100 (70-100) mg/dL Calcium 8.0 L (8.4-10.2) mg/dL Magnesium 2.3 (1.6-2.3) mg/dL Total Bilirubin 0.3 (0.2-1.3) mg/dL Conjugated Bilirubin 0.0 (0.0-0.3) md/dL Unconjugated Bilirubin 0.2 (0.0-1.1) mg/dL AST 46 H (14-36) IU/L ALT 17 (<35) IU/L Alkaline Phosphatase 47 (38-126) U/L Total Protein 7.1 (6.3-8.2) g/dL Albumin 4.1 (3.5-5.0) g/dL Globulin 3.0 (1.7-4.1) g/dL Albumin/Globulin Ratio 1.4 (1.0-2.8) Lipase 238 (23-300) U/L U Opiates 300ng/mL cut Negative (Negative) Ur Oxycodone Screen Negative (Negative) Urine Methadone Screen Negative (Negative) Ur Barbiturates Screen Negative (Negative) U Tricyclic Antidepress Negative (Negative) Ur Phencyclidine Scrn Negative (Negative) Ur Amphetamines Screen Negative (Negative) U Methamphetamines Scrn Negative (Negative) Ur MDMA Scrn (Ecstasy) Negative (Negative) U Benzodiazepines Scrn Negative (Negative) Urine Cocaine Screen Negative (Negative) U Marijuana (THC) Screen Positive H (Negative) Ethyl Alcohol 461 H* ( - 10) mg/dL 08/14/19 Range/Units 16:30 WBC (4.5-11.0) X10^3/uL RBC (4.0-5.2) X10^6/uL Hgb (12.0-16.0) g/dL Hct (36-46) % MCV (80-100) fL MCH (26-34) PG MCHC (30-36) % RDW (11.6-14.8) % Plt Count (150-400) X10^3/uL Neut % (Auto) (50-75) % Lymph % (Auto) (25-40) % [place] % (Auto) (3-14) % Eos % (Auto) (2-4) % Baso % (Auto) (0-2) % Neut # (Auto) (4448-9793) /uL Lymph # (Auto) (2221-5927) /uL [place] # (Auto) (0-900) /uL Eos # (Auto) (0-450) /uL Baso # (Auto) (0-100) /uL Sodium (137-145) mmol/L Potassium (3.4-5.1) mmol/L Chloride (98-107) mmol/L Carbon Dioxide (22-32) mmol/L BUN (7-17) mg/dL Creatinine (0.52-1.04) mg/dL Estimated GFR (>60) mL/min BUN/Creatinine Ratio (6-22) Glucose (70-100) mg/dL Calcium (8.4-10.2) mg/dL Magnesium (1.6-2.3) mg/dL Total Bilirubin (0.2-1.3) mg/dL Conjugated Bilirubin (0.0-0.3) md/dL Unconjugated Bilirubin (0.0-1.1) mg/dL AST (14-36) IU/L ALT (<35) IU/L Alkaline Phosphatase (38-126) U/L Total Protein (6.3-8.2) g/dL Albumin (3.5-5.0) g/dL Globulin (1.7-4.1) g/dL Albumin/Globulin Ratio (1.0-2.8) Lipase (23-300) U/L U Opiates 300ng/mL cut (Negative) Ur Oxycodone Screen (Negative) Urine Methadone Screen (Negative) Ur Barbiturates Screen (Negative) U Tricyclic Antidepress (Negative) Ur Phencyclidine Scrn (Negative) Ur Amphetamines Screen (Negative) U Methamphetamines Scrn (Negative) Ur MDMA Scrn (Ecstasy) (Negative) U Benzodiazepines Scrn (Negative) Urine Cocaine Screen (Negative) U Marijuana (THC) Screen (Negative) Ethyl Alcohol < 10 ( - 10) mg/dL Point of Care Testing Test Results Negative Urine Dip Bedside Urine Glucose Negative Bedside Urine Bilirubin - Negative Bedside Urine Ketone - Negative Urine Specific [place] 1.025 Bedside Urine Occult Blood - Negative Bedside Urine pH 6.0 Bedside Urine Protein - Negative Bedside Urine Urobilinogen +/- 1mg Bedside Urine Nitrite - Negative Bedside Urine Leukocytes - Negative Esterase MDM Narrative Medical decision making narrative: 623 pm Care assumed again this evening. Speaking with [employer]. Will be detained for 72hrs due to grave disability secondary to severe alcoholism, depression and suicidal ideation. She will be going to [facility] [place]. Working on transport. Legal documents will be served between the social welfare research worker and [employer]. Anticipate transport this evening. Chart has been locked previously and I am unable to enter a discharge diagnosis. Dishcarge plan: transfer to acute care psychatric facility DC diagnosis: Invounary 72hr legal alf Gravely disabled severe alcoholism anxiety depression suicidal ideation inability to care for self Discharge Plan Departure Patient Disposition: Xfer Psychiatric Hosp Clinical Impression: Admitted to substance misuse detoxification center, Suicidal ideation Depression Qualifiers: Depression Type: other depression Qualified Code(s): F32.89 - Other specified depressive episodes Discharge Date/Time: 08/15/19 09:08 Referrals: Wes Becerra DO [Primary Care Provider] - <Micheal Pastrana MD - Last Filed: 08/16/19 07:31> Cosign ED Attending Cosignature Attestation: 0931: Report words received from Dr. Goff. She informed me that multiple members of the patient's family has called and stated that she has been very depressed and has had suicidal ideation. At 5:20 p.m. yesterday the patient's blood alcohol level was 461. After 16 hours the patient's calculated alcohol level is expected to be approximately 221. The medical secretary teacher will be evaluating the patient and her risk of self-harm. The medical secretary teacher has been contacted and is expected to evaluate the patient at approximately 12:00 p.m. noon. 1303: Marco the medical secretary teacher is evaluating the patient. The patient does not feel that she has a problem. Her family has called multiple times stating that she is suicidal. According to Marco the patient presented with the same issue last week. The patient did not follow-up with the recommended assistance. At this time the patient is being placed in restraints seclusion until she can be evaluated by DCR. 0800: 08/15/19: The patient's restraint order for seclusion to prevent her from eloping has been renewed. The patient has been placed in seclusion as she is going to be transferred to another institution for depression, reported thoughts of suicidal ideation and acute chronic alcoholism. At 9:00 a.m. the patient is scheduled to be transferred to the substance abuse institution arranged by mental health. At this time the patient is sleeping comfortably lying on a mattress on the floor with a food tray next to her. She does not appear to be in any acute distress and appears to be sleeping comfortably. 0903 Ambulance here to transport the patient. patient given 5 mg valium orally for the transfer.
--- NOTE | 2019-08-13 21:16 | PC.NURSE ---
pt resting eyes shut chest rising and falling
--- NOTE | 2019-08-13 21:43 | PC.NURSE ---
Report received from Obdulia Artis RN. Pt resting eyes closed on mattress on ground in room 13 with open door on continuous observation by javascript software engineer. breathing unlabored. will continue to monitor.
--- NOTE | 2019-08-13 21:45 | PC.NURSE ---
Pt lying on mat on floor eyes shut, chest rising and falling
--- NOTE | 2019-08-13 22:00 | PC.NURSE ---
Pt lying on mat, eyes shut chest rising and falling
--- NOTE | 2019-08-13 23:00 | PC.NURSE ---
pt lying on mattress on floor, eyes closed, chest rising and falling
--- NOTE | 2019-08-14 | PC.NURSE ---
Pt resting on mat with eyes closed chest rising and falling
--- NOTE | 2019-08-14 01:01 | PC.NURSE ---
pt sleeping chest rising and falling
--- NOTE | 2019-08-14 03:01 | PC.NURSE ---
Pt is sleeping on mattress on the floor. She has warm blankets.
--- NOTE | 2019-08-14 03:46 | PC.NURSE ---
Pt sleeping chest rise and fall with respiration
[2019-08-14 06:30] VITALS: BP 137/72; PULSE 76; RESP 18; O2SAT 100
--- NOTE | 2019-08-14 06:49 | PC.NURSE ---
Pt awake vitals taken @06:45, Water and warm blanket provided.
--- NOTE | 2019-08-14 07:04 | PC.NURSE ---
J christine watch complete passed onto day shift. pt is resting in rm
--- NOTE | 2019-08-14 08:06 | PC.NURSE ---
pt has been cooperative and is not suicidal. she is resting without incident. ciwa 0. discussed with
--- NOTE | 2019-08-14 09:30 | PC.NURSE ---
Pt up to bathroom
--- NOTE | 2019-08-14 09:31 | PC.NURSE ---
pt lying back down on stretcher
[2019-08-14 09:53] LABS: UR Morphine/Opiate cutoff 300 Negative (Negative); Ur Creatinine Normal (Normal); Ur Specific Gravity Normal (Normal); Urine Amphetamines Negative (Negative); Urine Barbiturates Negative (Negative); Urine Benzodiazepines Negative (Negative); Urine Cocaine Negative (Negative); Urine MDMA Negative (Negative); Urine Methadone Negative (Negative); Urine Methamphetamines Negative (Negative); Urine Oxycodone Negative (Negative); Urine Phencyclidine Negative (Negative); Urine Tetrahydrocannabinol Positive (Negative); Urine Tricyclic Antidepressant Negative (Negative); Urine pH Normal (Normal)
--- NOTE | 2019-08-14 09:59 | PC.NURSE ---
Patient used the bathroom. Offered shower but she declined and stated she wanted to go home. Returned to lying down.
[2019-08-14 10:30] VITALS: BP 127/69; PULSE 68; O2SAT 98
--- NOTE | 2019-08-14 11:58 | PC.NURSE ---
Pt wanting to go home,informed her that Marco will be here at noon to speak to her
--- NOTE | 2019-08-14 11:59 | PC.NURSE ---
pt covered up with blanket,occasionally moving on mattress. No distress noted
--- NOTE | 2019-08-14 13:57 | CM.SWNOTE ---
Addendum entered by Marco Lou 08/14/19 17:34: DANCE HALL HOSTESS note- update DANCE HALL HOSTESS calls friend Kye at patient's request and transfers call to patient. Patient takes call outside of room on hospital phone. DANCE HALL HOSTESS faxed BAL results to [facility] and followed up with intake staff Ely. Ely confirmed receipt of lab results and confirmed approval of patient. Ely requested DANCE HALL HOSTESS call and provide ETA for patient once transport has been established. DANCE HALL HOSTESS agreed to follow up. DANCE HALL HOSTESS called DCR/Jyoti to confirm all paperwork for [facility] had been submitted. Jyoti informs DANCE HALL HOSTESS that she will contact Dr. Pastrana for final information, fax over packet, and then follow up with DANCE HALL HOSTESS to complete the process by serving the patient. Pl: DCR to follow up with Dr. Pastrana. DANCE HALL HOSTESS will compile paperwork from DCR once it is received and DANCE HALL HOSTESS will serve patient with detainment paperwork during zoom meeting with DCR. ION Laguerre Addendum entered by Marco Lou 08/14/19 16:22: DANCE HALL HOSTESS note- UPDATE DCR calls DANCE HALL HOSTESS. DCR informs DANCE HALL HOSTESS that she is planning to detain patient per [employer] to [facility] detox in [place]. DCR explains that patient's multiple presentations to the ED with ETOH of 400+ demonstrate that patient's alcohol abuse is presenting a danger to herself. DCR calls Ipad and DANCE HALL HOSTESS enters room and holds Ipad while DCR informs patient of detainment. Patient is tearful, but indicates understanding. Patient requests that DANCE HALL HOSTESS assist in coordinating phone call to emergency contact Kye Shell to help secure her belongings. DANCE HALL HOSTESS calls DCR to follow up and see if any other items are needed. DCR states that facility will need a current BAL/ETOH result faxed to [facility] prior to the detainment being official. DCR states that her paperwork will be completed in an hour. DANCE HALL HOSTESS informs CRISTIANO Wilson, who orders test. Pl: DANCE HALL HOSTESS will connect patient to friend after blood draw for BAL is completed. ION Laguerre Addendum entered by Marco Lou 08/14/19 15:00: DANCE HALL HOSTESS note UPDATE OMID Jyoti called DANCE HALL HOSTESS. OMID stated she called several [facility] hospitals in the area and there was limited bed availability. Jyoti states she explored grave disability with [place], but patient does not meet criteria. Jyoti states there is a bed open for involuntary alcohol detox in [place], but that patient's presentation likely requires a more psychiatric care team, and Jyoti states she would not recieve this support in [place]. Jyoti states that she may have to do a walk away with an outpatient follow up plan. DANCE HALL HOSTESS informs Jyoti of concern for patient safety due to this being attempted previous week, and same presentation one week later. Jyoti indicates understanding and informs DANCE HALL HOSTESS she will review packet that DANCE HALL HOSTESS faxed to her and follow up with DANCE HALL HOSTESS after. Jyoti states that the patient will still be interviewed by a DCR. Pl: DCR to follow up with DANCE HALL HOSTESS later in afternoon. ION Laguerre Addendum entered by Marco Lou 08/14/19 14:24: DANCE HALL HOSTESS note- UPDATE Dr. Pastrana signs attestation form and DANCE HALL HOSTESS faxes to [facility]. Jyoti Jarvis ph [phone], DCR calls DANCE HALL HOSTESS. DANCE HALL HOSTESS reviews information of patient's last two visits, conversation with PCP, and failed outpatient plan from previous week. Jyoti informs DANCE HALL HOSTESS that patient does likely meet criteria for involuntary hold, and Jyoti and DANCE HALL HOSTESS discuss proceeding with involuntary hold for alcohol abuse or for mental health. DANCE HALL HOSTESS explains that, based on notes and interaction with patient, that it is the opinion of DANCE HALL HOSTESS that patient's presentation is very much a co-occurring disorder presentation, and that detox alone may not fully address the underlying psychiatric concerns that patient has been discussing. Jyoti indicates understanding, and informs DANCE HALL HOSTESS that she will review the chart and follow up with DANCE HALL HOSTESS after. DANCE HALL HOSTESS faxes chart notes from current visit, previous visit and affidavit from patient's aunt to DCR Jyoti. DANCE HALL HOSTESS provides update to ED Director Denisse, and will follow up with RN and Dr. Pastrana. DANCE HALL HOSTESS will wait for follow up call from Jyoti. ION Laguerre Original Note: DANCE HALL HOSTESS note DANCE HALL HOSTESS consult requested for patient. Patient is a 24 y/o female who presents to ED with ETOH of 461 mg/dL upon arrival, suicidal ideation, and complaints of withdrawals from psychiatric medication. Patient presented to ED 08/05/19 with near identical presentation including ETOH of over 400 mg/dL upon arrival, suicidal ideation, and complaints of withdrawals from psychiatric medication. DANCE HALL HOSTESS meets with patient. Patient appears agitated and states Can we make this fast? I want to go home when DANCE HALL HOSTESS enters room. DANCE HALL HOSTESS asks patient what has taken place during previous week since they last met. Patient admits to missing all of her appointments, but states that she has a memory problem and that the notes were not written in the discharge plan. DANCE HALL HOSTESS reviews plan and informs patient that the details were in the notes, and patient states she was never given the plan. Patient states she was drinking with friends the previous evening and things got a little out of hand. DANCE HALL HOSTESS asks for clarification and patient exclaims I drank too much!. DANCE HALL HOSTESS asks about suicidality and patient says she was feeling suicidal while drinking previous night, but that she handled it. DANCE HALL HOSTESS asks patient how she got to the ED and patient reports she does not remember. Patient states she just needs refills of her medication and states that her doctor is refusing to refill. Patient also reports that she has received injections in her butt without her consent during this visit. Per chart, patient has not received any injections during current ED stay. DANCE HALL HOSTESS revisits discussion of inpatient treatment from previous week. Patient declines. DANCE HALL HOSTESS informs patient that it is the recommendation of DANCE HALL HOSTESS for inpatient treatment due to the lack of success with the outpatient support plan and additional presentation to ED. Patient declines. DANCE HALL HOSTESS explains that DANCE HALL HOSTESS will begin process of BERNARDO. DANCE HALL HOSTESS exits room and informs Dr. Pastrana of conversation. DANCE HALL HOSTESS contacts [facility] and sends over attestation form. DANCE HALL HOSTESS contacts patient's PCP- Dr. Wes Becerra at [facility] ph [phone] who informs DANCE HALL HOSTESS that patient has been discharged from clinic due to excessive no shows. Patient's PCP informs DANCE HALL HOSTESS that he believes she would benefit from inpatient treatment due to alcohol abuse, psychiatric concerns, and failure to participate in outpatient treatment. Dr. Becerra also informs DANCE HALL HOSTESS that patient had previous been referred to [facility] and was discharged due to no-shows and inappropriate behavior. Pl: DANCE HALL HOSTESS will wait for DCR to contact hospital. DANCE HALL HOSTESS - Cuffing Machine Operator Assessment DANCE HALL HOSTESS - Cuffing Machine Operator Assessment Start: 08/14/19 13:02 Freq: Status: Active Protocol: Document 08/14/19 13:03 JUAN (Rec: 08/14/19 13:20 JUAN [id number]) DANCE HALL HOSTESS/Cuffing Machine Operator Assessment Time Spent with Patient Start date 08/14/19 Visit Start Time 12:00 End date 08/14/19 Visit End Time 12:45 Total time Care Management spent on 45 patient visit-in minutes Mental Health Screening Include Onset, Duration, Intensity Presenting Problem Patient presented to ED previous evening with ETOH of 461 mg/dL and suicide ideation . Patient reports she has not had her psych meds for roughly two weeks and is withdrawing from them. Precipitating Event(s) Patient presented to ED previous week with similar presentation including ETOH over 400 mg/dL, complaints of withdrawal from psych meds, and suicide ideation when intoxicated. Psych. Hx Mental Health and Chemical Patient has dx of depression, Dependency anxiety, and bipolar II. Patient has presented to ED multiple times with ETOH of over 400 mg/dL, and has history of methamphetamine abuse and opioid abuse. Patient has previously attempted suicide. Psychiatric Hospitalizations (date(s)/ Patient reports previous location) hospitalization in 2016. Support System(s) Patient reports that she has some friends who she sees and some neighbors who she feels safe with. School/Work none current Mental Status Orientation (Person/Place/Time) oriented x3 Affect Anxious, angry, slightly labile Thought Content - Specify/Describe Patient does appear to be Obsessions, Delusions, Hallucinations experiencing delusions with regards to her medication. Patient multiple times complains of getting injections while in ED, when no injections have been provided to patient. Patient repeatedly reports that the doctors are refusing to refill her medication, and that she does not know why they are refusing to refill her medication. . Thought Processes (Nifkmdc-Xtinhqhk-Spwo Coherent Rabhyizp-Rbwtcdfn-Evarijbejj- Ielrwbwedriigz-Vfetfyy-Ndvggwvohvvu- Thought Blocking) Speech (Dxpilz-Tcyo-Rhfivff-Rapid-Soft- Loud Loud-Pressured) Motor (Kiiiyb-Ollptysft-Gnga-Other) Patient was experiencing tremors during assessment Insight (Present-Partially Present- Impaired Impaired) Judgement (Intact-Impaired) Impaired Impulse Control (Adequate-Impaired) Impaired Memory (Evcyutrjw-Xhvvdz-Ckizjh, Immediate/recent- intact, Impaired-Intact) unable to evaluate remote during assessment Concentration (Intact-Impaired) Intact Attention (Intact-Impaired) Intact Behavior (Appropriate-Inappropriate) Mostly appropriate- patient did become escalated and express frustration during assessment. Risk Assessment Suicidal Ideation (Plan) Yes Homicidal Ideation (Plan) No Comment Patient denies current suicidality during assessment, but reports experiencing suicidal previous evening when drinking, and reports that this is what led to her coming to ED. Patient reports experiencing suicidal when she drinks during previous assessment. Intervention Intervention DANCE HALL HOSTESS meets with patient. Patient appears agitated when DANCE HALL HOSTESS enters room. DANCE HALL HOSTESS and patient review meeting from previous week, and patient reports having not attended any of the outpatient appointments and still is in need of medication refills. DANCE HALL HOSTESS offers voluntary hospitalization, patient declines. DANCE HALL HOSTESS explains concern based on similar presentation from previous week and the missed appointments. Patient declines voluntary inpatient treatment. DANCE HALL HOSTESS explains that the process to initiate B[facility]ARDO will begin following assessment. DANCE HALL HOSTESS staffs with RN , Dr. Pastrana, who are in agreement with plan to contact DCR. Plan RA Plan DANCE HALL HOSTESS to initiate BERNARDO process and will contact [facility] dispatch . ION Laguerre
--- NOTE | 2019-08-14 14:44 | PC.NURSE ---
Patient got up and walked to door wanting to leave. She was orientated back to room.
[2019-08-14] MEDS: LORazepam 0.5 MG TABLET 2 MG PO ×2 (15:20→17:10)
--- NOTE | 2019-08-14 15:59 | PC.NURSE ---
Patient with CARTON FOLDER
[2019-08-14 16:49] LABS: Ethanol (ETOH) < 10 mg/dL
[2019-08-14 16:54] VITALS: BP 141/65; PULSE 71; O2SAT 99
--- NOTE | 2019-08-14 18:37 | PC.NURSE ---
Patient talked to friend Kye on the phone who is bringing her belongings and checking on her animals
--- NOTE | 2019-08-14 19:09 | PC.NURSE ---
SCANNING COORDINATOR in with Pt.
[2019-08-14] MEDS: diazePAM 5 MG TABLET 10 MG PO ×2 (19:37→20:44)
--- NOTE | 2019-08-14 23:45 | PC.NURSE ---
Patient resting on mattress. Door is open to hallway and lights are off.
--- NOTE | 2019-08-15 04:05 | PC.NURSE ---
Pt appears to be asleep, no tremors felt or perspiration felt
[2019-08-15 08:58] VITALS: BP 110/79; PULSE 111; RESP 16; O2SAT 97
--- NOTE | 2019-08-15 09:00 | PC.NURSE ---
JASON has arrived for Pt. Xfer.
[2019-08-15] MEDS: diazePAM 5 MG TABLET PO (09:03)
== END 2019-08-15 09:08 ==
PROVIDERS: Emergency Medicine; Nurse Practitioner Family; Emergency Provider Emergency Medicine; PCP Family Medicine
DX: R45.851 Suicidal ideations (principal); F32.89 Other specified depressive episodes
CPT/HCPCS: 36415; 80053; 80076; 80305; 80320; 81003; 81025; 83690; 83735; 85025; 99285

== ENCOUNTER 2019-09-17 11:48 | Emergency (ER) | payer OTHER, MEDICAID, SELFPAY ==
[2019-09-17 12:01] VITALS: BP 132/104; PULSE 111; RESP 20; TEMP 37.6; O2SAT 96; BMI 19.8
--- NOTE | 2019-09-17 12:14 | PC.NURSE ---
Pt. came to the dept. and was cooperative, changed and provided a urine sample when requested. Pt. began to sob and breathe heavily and appears to be very upset with herself. Medication was offered to the pt. to help her relax which the pt. did accept. Pt. is now laying on the mattress sobbing and restless. Pt. is still cooperative with staff request at this time.
[2019-09-17 12:24] LABS: Add Manual Diff / Slide Review NO; Basophils Absolute Auto 100 /uL (0-100); Basophils Percent Auto 1.7 % (0-2); Eosinophils Absolute Auto 100 /uL (0-450); Hematocrit 40.5 % (36-46); Hemoglobin 13.7 g/dL (12.0-16.0); Lymphocytes Absolute Auto 2500 /uL (1100-4500); Mean Corpuscular HGB Conc 33.9 % (30-36); Mean Corpuscular Hemoglobin 33.3 PG (26-34); Mean Corpuscular Volume 98.4 fL (80-100); Monocytes Absolute Auto 300 /uL (0-900); Monocytes Percent Auto 4.5 % (3-14); Neutrophils Absolute Auto 3200 /uL (1500-7000); Neutrophils Percent Auto 51.8 % (50-75); Platelet Count 318 X10^3/uL (150-400); Red Blood Cell Count 4.11 X10^6/uL (4.0-5.2); Red Cell Distribution Width 13.1 % (11.6-14.8); White Blood Cell Count 6.2 X10^3/uL (4.5-11.0)
--- NOTE | 2019-09-17 12:30 | PC.NURSE ---
Pt. still heavily breathing and asking to leave. She is agitated and restless, rolling around on the mattress. Pt. is still cooperative with staff at this time.
[2019-09-17] MEDS: diphenhydrAMINE 25 MG TABLET 50 MG PO (12:32)
[2019-09-17] MEDS: haloperidoL 5 MG TABLET PO (12:32)
[2019-09-17] MEDS: LORazepam 0.5 MG TABLET 2 MG PO ×2 (12:32→18:53)
--- NOTE | 2019-09-17 12:34 | ED_ITS ---
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 (11.6-14.8) % Plt Count 318 (150-400) X10^3/uL Neut % (Auto) 51.8 (50-75) % Lymph % (Auto) 41.0 H (25-40) % [place] % (Auto) 4.5 (3-14) % Eos % (Auto) 1.0 L (2-4) % Baso % (Auto) 1.7 (0-2) % Neut # (Auto) 3200 (2571-0893) /uL Lymph # (Auto) 2500 (1127-9045) /uL [place] # (Auto) 300 (0-900) /uL Eos # (Auto) 100 (0-450) /uL Baso # (Auto) 100 (0-100) /uL Sodium 145 (137-145) mmol/L Potassium 4.0 (3.4-5.1) mmol/L Chloride 106 (98-107) mmol/L Carbon Dioxide 29 (22-32) mmol/L BUN 7 (7-17) mg/dL Creatinine 0.65 (0.52-1.04) mg/dL Estimated GFR > 60.0 (>60) mL/min BUN/Creatinine Ratio 10.8 (6-22) Glucose 110 H (70-100) mg/dL Lactate (0.7-2.1) mmol/L Calcium 8.4 (8.4-10.2) mg/dL Total Bilirubin 0.3 (0.2-1.3) mg/dL AST 41 H (14-36) IU/L ALT 17 (<35) IU/L Alkaline Phosphatase 67 (38-126) U/L Total Protein 7.2 (6.3-8.2) g/dL Albumin 4.5 (3.5-5.0) g/dL Globulin 2.7 (1.7-4.1) g/dL Albumin/Globulin Ratio 1.7 (1.0-2.8) TSH 2.60 (0.47-4.68) uIU/mL Urine Color Urine Appearance Urine pH (4.5-8.0) Ur Specific [place] (1.000-1.035) Urine Protein (Negative) Urine Glucose (UA) (Negative) g/dL Urine Ketones (NEGATIVE) Urine Occult Blood (Negative) Urine Nitrate (Negative) Urine Bilirubin (NEGATIVE) Urine Urobilinogen (0.2) E.U./dL Ur Leukocyte Esterase (NEGATIVE) Urine RBC (0-5/HPF) Urine WBC (0-5/HPF) Ur Squamous Epith Cells (0-5/HPF) Urine Bacteria (None) Ur Culture Indicated? Urine Test (Negative) Salicylates < 1.0 (<20) mg/dL U Opiates 300ng/mL cut (Negative) Ur Oxycodone Screen (Negative) Urine Methadone Screen (Negative) Acetaminophen < 10 L (10-30) ug/mL Ur Barbiturates Screen (Negative) U Tricyclic Antidepress (Negative) Ur Phencyclidine Scrn (Negative) Ur Amphetamines Screen (Negative) U Methamphetamines Scrn (Negative) Ur MDMA Scrn (Ecstasy) (Negative) U Benzodiazepines Scrn (Negative) Urine Cocaine Screen (Negative) U Marijuana (THC) Screen (Negative) Ethyl Alcohol 429 H* ( - 10) mg/dL 09/17/19 09/17/19 09/18/19 Range/Units 12:17 14:51 03:18 WBC (4.5-11.0) X10^3/uL RBC (4.0-5.2) X10^6/uL Hgb (12.0-16.0) g/dL Hct (36-46) % MCV (80-100) fL MCH (26-34) PG MCHC (30-36) % RDW (11.6-14.8) % Plt Count (150-400) X10^3/uL Neut % (Auto) (50-75) % Lymph % (Auto) (25-40) % [place] % (Auto) (3-14) % Eos % (Auto) (2-4) % Baso % (Auto) (0-2) % Neut # (Auto) (2427-7056) /uL Lymph # (Auto) (4681-5075) /uL [place] # (Auto) (0-900) /uL Eos # (Auto) (0-450) /uL Baso # (Auto) (0-100) /uL Sodium (137-145) mmol/L Potassium (3.4-5.1) mmol/L Chloride (98-107) mmol/L Carbon Dioxide (22-32) mmol/L BUN (7-17) mg/dL Creatinine (0.52-1.04) mg/dL Estimated GFR (>60) mL/min BUN/Creatinine Ratio (6-22) Glucose (70-100) mg/dL Lactate 2.3 H 1.6 (0.7-2.1) mmol/L Calcium (8.4-10.2) mg/dL Total Bilirubin (0.2-1.3) mg/dL AST (14-36) IU/L ALT (<35) IU/L Alkaline Phosphatase (38-126) U/L Total Protein (6.3-8.2) g/dL Albumin (3.5-5.0) g/dL Globulin (1.7-4.1) g/dL Albumin/Globulin Ratio (1.0-2.8) TSH (0.47-4.68) uIU/mL Urine Color Urine Appearance Urine pH (4.5-8.0) Ur Specific [place] (1.000-1.035) Urine Protein (Negative) Urine Glucose (UA) (Negative) g/dL Urine Ketones (NEGATIVE) Urine Occult Blood (Negative) Urine Nitrate (Negative) Urine Bilirubin (NEGATIVE) Urine Urobilinogen (0.2) E.U./dL Ur Leukocyte Esterase (NEGATIVE) Urine RBC (0-5/HPF) Urine WBC (0-5/HPF) Ur Squamous Epith Cells (0-5/HPF) Urine Bacteria (None) Ur Culture Indicated? Urine Test (Negative) Salicylates (<20) mg/dL U Opiates 300ng/mL cut (Negative) Ur Oxycodone Screen (Negative) Urine Methadone Screen (Negative) Acetaminophen (10-30) ug/mL Ur Barbiturates Screen (Negative) U Tricyclic Antidepress (Negative) Ur Phencyclidine Scrn (Negative) Ur Amphetamines Screen (Negative) U Methamphetamines Scrn (Negative) Ur MDMA Scrn (Ecstasy) (Negative) U Benzodiazepines Scrn (Negative) Urine Cocaine Screen (Negative) U Marijuana (THC) Screen (Negative) Ethyl Alcohol < 10 ( - 10) mg/dL <Carly Daly, DO - Last Filed: 09/19/19 08:56> Lab Data Labs: Lab Results 09/17/19 09/17/19 09/17/19 Range/Units 12:10 12:10 12:10 WBC (4.5-11.0) X10^3/uL RBC (4.0-5.2) X10^6/uL Hgb (12.0-16.0) g/dL Hct (36-46) % MCV (80-100) fL MCH (26-34) PG MCHC (30-36) % RDW (11.6-14.8) % Plt Count (150-400) X10^3/uL Neut % (Auto) (50-75) % Lymph % (Auto) (25-40) % [place] % (Auto) (3-14) % Eos % (Auto) (2-4) % Baso % (Auto) (0-2) % Neut # (Auto) (9694-9788) /uL Lymph # (Auto) (4558-8723) /uL [place] # (Auto) (0-900) /uL Eos # (Auto) (0-450) /uL Baso # (Auto) (0-100) /uL Sodium (137-145) mmol/L Potassium (3.4-5.1) mmol/L Chloride (98-107) mmol/L Carbon Dioxide (22-32) mmol/L BUN (7-17) mg/dL Creatinine (0.52-1.04) mg/dL Estimated GFR (>60) mL/min BUN/Creatinine Ratio (6-22) Glucose (70-100) mg/dL Lactate (0.7-2.1) mmol/L Calcium (8.4-10.2) mg/dL Total Bilirubin (0.2-1.3) mg/dL AST (14-36) IU/L ALT (<35) IU/L Alkaline Phosphatase (38-126) U/L Total Protein (6.3-8.2) g/dL Albumin (3.5-5.0) g/dL Globulin (1.7-4.1) g/dL Albumin/Globulin Ratio (1.0-2.8) TSH (0.47-4.68) uIU/mL Urine Color Yellow Urine Appearance Clear Urine pH 7.0 (4.5-8.0) Ur Specific [place] 1.010 (1.000-1.035) Urine Protein Negative (Negative) Urine Glucose (UA) Negative (Negative) g/dL Urine Ketones Negative (NEGATIVE) Urine Occult Blood Negative (Negative) Urine Nitrate Negative (Negative) Urine Bilirubin Negative (NEGATIVE) Urine Urobilinogen 0.2 (0.2) E.U./dL Ur Leukocyte Esterase Negative (NEGATIVE) Urine RBC None seen (0-5/HPF) Urine WBC None seen (0-5/HPF) Ur Squamous Epith Cells 5-10 /hpf H (0-5/HPF) Urine Bacteria None seen (None) Ur Culture Indicated? Cult not indicated Urine Test Negative (Negative) Salicylates (<20) mg/dL U Opiates 300ng/mL cut Negative (Negative) Ur Oxycodone Screen Negative (Negative) Urine Methadone Screen Negative (Negative) Acetaminophen (10-30) ug/mL Ur Barbiturates Screen Negative (Negative) U Tricyclic Antidepress Negative (Negative) Ur Phencyclidine Scrn Negative (Negative) Ur Amphetamines Screen Negative (Negative) U Methamphetamines Scrn Negative (Negative) Ur MDMA Scrn (Ecstasy) Negative (Negative) U Benzodiazepines Scrn Negative (Negative) Urine Cocaine Screen Negative (Negative) U Marijuana (THC) Screen Positive H (Negative) Ethyl Alcohol ( - 10) mg/dL 09/17/19 09/17/19 09/17/19 Range/Units 12:17 12:17 12:17 WBC 6.2 (4.5-11.0) X10^3/uL RBC 4.11 (4.0-5.2) X10^6/uL Hgb 13.7 (12.0-16.0) g/dL Hct 40.5 (36-46) % MCV 98.4 (80-100) fL MCH 33.3 (26-34) PG MCHC 33.9 (30-36) % RDW 13.1 (11.6-14.8) % Plt Count 318 (150-400) X10^3/uL Neut % (Auto) 51.8 (50-75) % Lymph % (Auto) 41.0 H (25-40) % [place] % (Auto) 4.5 (3-14) % Eos % (Auto) 1.0 L (2-4) % Baso % (Auto) 1.7 (0-2) % Neut # (Auto) 3200 (2552-8215) /uL Lymph # (Auto) 2500 (7030-5730) /uL [place] # (Auto) 300 (0-900) /uL Eos # (Auto) 100 (0-450) /uL Baso # (Auto) 100 (0-100) /uL Sodium 145 (137-145) mmol/L Potassium 4.0 (3.4-5.1) mmol/L Chloride 106 (98-107) mmol/L Carbon Dioxide 29 (22-32) mmol/L BUN 7 (7-17) mg/dL Creatinine 0.65 (0.52-1.04) mg/dL Estimated GFR > 60.0 (>60) mL/min BUN/Creatinine Ratio 10.8 (6-22) Glucose 110 H (70-100) mg/dL Lactate (0.7-2.1) mmol/L Calcium 8.4 (8.4-10.2) mg/dL Total Bilirubin 0.3 (0.2-1.3) mg/dL AST 41 H (14-36) IU/L ALT 17 (<35) IU/L Alkaline Phosphatase 67 (38-126) U/L Total Protein 7.2 (6.3-8.2) g/dL Albumin 4.5 (3.5-5.0) g/dL Globulin 2.7 (1.7-4.1) g/dL Albumin/Globulin Ratio 1.7 (1.0-2.8) TSH 2.60 (0.47-4.68) uIU/mL Urine Color Urine Appearance Urine pH (4.5-8.0) Ur Specific [place] (1.000-1.035) Urine Protein (Negative) Urine Glucose (UA) (Negative) g/dL Urine Ketones (NEGATIVE) Urine Occult Blood (Negative) Urine Nitrate (Negative) Urine Bilirubin (NEGATIVE) Urine Urobilinogen (0.2) E.U./dL Ur Leukocyte Esterase (NEGATIVE) Urine RBC (0-5/HPF) Urine WBC (0-5/HPF) Ur Squamous Epith Cells (0-5/HPF) Urine Bacteria (None) Ur Culture Indicated? Urine Test (Negative) Salicylates < 1.0 (<20) mg/dL U Opiates 300ng/mL cut (Negative) Ur Oxycodone Screen (Negative) Urine Methadone Screen (Negative) Acetaminophen < 10 L (10-30) ug/mL Ur Barbiturates Screen (Negative) U Tricyclic Antidepress (Negative) Ur Phencyclidine Scrn (Negative) Ur Amphetamines Screen (Negative) U Methamphetamines Scrn (Negative) Ur MDMA Scrn (Ecstasy) (Negative) U Benzodiazepines Scrn (Negative) Urine Cocaine Screen (Negative) U Marijuana (THC) Screen (Negative) Ethyl Alcohol 429 H* ( - 10) mg/dL 09/17/19 09/17/19 09/18/19 Range/Units 12:17 14:51 03:18 WBC (4.5-11.0) X10^3/uL RBC (4.0-5.2) X10^6/uL Hgb (12.0-16.0) g/dL Hct (36-46) % MCV (80-100) fL MCH (26-34) PG MCHC (30-36) % RDW (11.6-14.8) % Plt Count (150-400) X10^3/uL Neut % (Auto) (50-75) % Lymph % (Auto) (25-40) % [place] % (Auto) (3-14) % Eos % (Auto) (2-4) % Baso % (Auto) (0-2) % Neut # (Auto) (4488-0441) /uL Lymph # (Auto) (2566-8204) /uL [place] # (Auto) (0-900) /uL Eos # (Auto) (0-450) /uL Baso # (Auto) (0-100) /uL Sodium (137-145) mmol/L Potassium (3.4-5.1) mmol/L Chloride (98-107) mmol/L Carbon Dioxide (22-32) mmol/L BUN (7-17) mg/dL Creatinine (0.52-1.04) mg/dL Estimated GFR (>60) mL/min BUN/Creatinine Ratio (6-22) Glucose (70-100) mg/dL Lactate 2.3 H 1.6 (0.7-2.1) mmol/L Calcium (8.4-10.2) mg/dL Total Bilirubin (0.2-1.3) mg/dL AST (14-36) IU/L ALT (<35) IU/L Alkaline Phosphatase (38-126) U/L Total Protein (6.3-8.2) g/dL Albumin (3.5-5.0) g/dL Globulin (1.7-4.1) g/dL Albumin/Globulin Ratio (1.0-2.8) TSH (0.47-4.68) uIU/mL Urine Color Urine Appearance Urine pH (4.5-8.0) Ur Specific [place] (1.000-1.035) Urine Protein (Negative) Urine Glucose (UA) (Negative) g/dL Urine Ketones (NEGATIVE) Urine Occult Blood (Negative) Urine Nitrate (Negative) Urine Bilirubin (NEGATIVE) Urine Urobilinogen (0.2) E.U./dL Ur Leukocyte Esterase (NEGATIVE) Urine RBC (0-5/HPF) Urine WBC (0-5/HPF) Ur Squamous Epith Cells (0-5/HPF) Urine Bacteria (None) Ur Culture Indicated? Urine Test (Negative) Salicylates (<20) mg/dL U Opiates 300ng/mL cut (Negative) Ur Oxycodone Screen (Negative) Urine Methadone Screen (Negative) Acetaminophen (10-30) ug/mL Ur Barbiturates Screen (Negative) U Tricyclic Antidepress (Negative) Ur Phencyclidine Scrn (Negative) Ur Amphetamines Screen (Negative) U Methamphetamines Scrn (Negative) Ur MDMA Scrn (Ecstasy) (Negative) U Benzodiazepines Scrn (Negative) Urine Cocaine Screen (Negative) U Marijuana (THC) Screen (Negative) Ethyl Alcohol < 10 ( - 10) mg/dL MDM Narrative Medical decision making narrative: Patient is signed out to me by Dr. May. Social work has been evaluate patient she is being detained. She is requesting Klonopin which helps with her anxiety. At this time alcohol is 0 and medically cleared. 09/19/19: The patient received Benadryl and Haldol last night to help her sleep and ambulance is here to take her she is requesting medication for anxiety previously she has been given Klonopin she is given 2 mg Klonopin for transport. <Hoda Goff MD - Last Filed: 09/19/19 17:52> Lab Data Labs: Lab Results 09/17/19 09/17/19 09/17/19 Range/Units 12:10 12:10 12:10 WBC (4.5-11.0) X10^3/uL RBC (4.0-5.2) X10^6/uL Hgb (12.0-16.0) g/dL Hct (36-46) % MCV (80-100) fL MCH (26-34) PG MCHC (30-36) % RDW (11.6-14.8) % Plt Count (150-400) X10^3/uL Neut % (Auto) (50-75) % Lymph % (Auto) (25-40) % [place] % (Auto) (3-14) % Eos % (Auto) (2-4) % Baso % (Auto) (0-2) % Neut # (Auto) (5012-7516) /uL Lymph # (Auto) (1243-2839) /uL [place] # (Auto) (0-900) /uL Eos # (Auto) (0-450) /uL Baso # (Auto) (0-100) /uL Sodium (137-145) mmol/L Potassium (3.4-5.1) mmol/L Chloride (98-107) mmol/L Carbon Dioxide (22-32) mmol/L BUN (7-17) mg/dL Creatinine (0.52-1.04) mg/dL Estimated GFR (>60) mL/min BUN/Creatinine Ratio (6-22) Glucose (70-100) mg/dL Lactate (0.7-2.1) mmol/L Calcium (8.4-10.2) mg/dL Total Bilirubin (0.2-1.3) mg/dL AST (14-36) IU/L ALT (<35) IU/L Alkaline Phosphatase (38-126) U/L Total Protein (6.3-8.2) g/dL Albumin (3.5-5.0) g/dL Globulin (1.7-4.1) g/dL Albumin/Globulin Ratio (1.0-2.8) TSH (0.47-4.68) uIU/mL Urine Color Yellow Urine Appearance Clear Urine pH 7.0 (4.5-8.0) Ur Specific [place] 1.010 (1.000-1.035) Urine Protein Negative (Negative) Urine Glucose (UA) Negative (Negative) g/dL Urine Ketones Negative (NEGATIVE) Urine Occult Blood Negative (Negative) Urine Nitrate Negative (Negative) Urine Bilirubin Negative (NEGATIVE) Urine Urobilinogen 0.2 (0.2) E.U./dL Ur Leukocyte Esterase Negative (NEGATIVE) Urine RBC None seen (0-5/HPF) Urine WBC None seen (0-5/HPF) Ur Squamous Epith Cells 5-10 /hpf H (0-5/HPF) Urine Bacteria None seen (None) Ur Culture Indicated? Cult not indicated Urine Test Negative (Negative) Salicylates (<20) mg/dL U Opiates 300ng/mL cut Negative (Negative) Ur Oxycodone Screen Negative (Negative) Urine Methadone Screen Negative (Negative) Acetaminophen (10-30) ug/mL Ur Barbiturates Screen Negative (Negative) U Tricyclic Antidepress Negative (Negative) Ur Phencyclidine Scrn Negative (Negative) Ur Amphetamines Screen Negative (Negative) U Methamphetamines Scrn Negative (Negative) Ur MDMA Scrn (Ecstasy) Negative (Negative) U Benzodiazepines Scrn Negative (Negative) Urine Cocaine Screen Negative (Negative) U Marijuana (THC) Screen Positive H (Negative) Ethyl Alcohol ( - 10) mg/dL 09/17/19 09/17/19 09/17/19 Range/Units 12:17 12:17 12:17 WBC 6.2 (4.5-11.0) X10^3/uL RBC 4.11 (4.0-5.2) X10^6/uL Hgb 13.7 (12.0-16.0) g/dL Hct 40.5 (36-46) % MCV 98.4 (80-100) fL MCH 33.3 (26-34) PG MCHC 33.9 (30-36) % RDW 13.1 (11.6-14.8) % Plt Count 318 (150-400) X10^3/uL Neut % (Auto) 51.8 (50-75) % Lymph % (Auto) 41.0 H (25-40) % [place] % (Auto) 4.5 (3-14) % Eos % (Auto) 1.0 L (2-4) % Baso % (Auto) 1.7 (0-2) % Neut # (Auto) 3200 (9805-6666) /uL Lymph # (Auto) 2500 (7477-5432) /uL [place] # (Auto) 300 (0-900) /uL Eos # (Auto) 100 (0-450) /uL Baso # (Auto) 100 (0-100) /uL Sodium 145 (137-145) mmol/L Potassium 4.0 (3.4-5.1) mmol/L Chloride 106 (98-107) mmol/L Carbon Dioxide 29 (22-32) mmol/L BUN 7 (7-17) mg/dL Creatinine 0.65 (0.52-1.04) mg/dL Estimated GFR > 60.0 (>60) mL/min BUN/Creatinine Ratio 10.8 (6-22) Glucose 110 H (70-100) mg/dL Lactate (0.7-2.1) mmol/L Calcium 8.4 (8.4-10.2) mg/dL Total Bilirubin 0.3 (0.2-1.3) mg/dL AST 41 H (14-36) IU/L ALT 17 (<35) IU/L Alkaline Phosphatase 67 (38-126) U/L Total Protein 7.2 (6.3-8.2) g/dL Albumin 4.5 (3.5-5.0) g/dL Globulin 2.7 (1.7-4.1) g/dL Albumin/Globulin Ratio 1.7 (1.0-2.8) TSH 2.60 (0.47-4.68) uIU/mL Urine Color Urine Appearance Urine pH (4.5-8.0) Ur Specific [place] (1.000-1.035) Urine Protein (Negative) Urine Glucose (UA) (Negative) g/dL Urine Ketones (NEGATIVE) Urine Occult Blood (Negative) Urine Nitrate (Negative) Urine Bilirubin (NEGATIVE) Urine Urobilinogen (0.2) E.U./dL Ur Leukocyte Esterase (NEGATIVE) Urine RBC (0-5/HPF) Urine WBC (0-5/HPF) Ur Squamous Epith Cells (0-5/HPF) Urine Bacteria (None) Ur Culture Indicated? Urine Test (Negative) Salicylates < 1.0 (<20) mg/dL U Opiates 300ng/mL cut (Negative) Ur Oxycodone Screen (Negative) Urine Methadone Screen (Negative) Acetaminophen < 10 L (10-30) ug/mL Ur Barbiturates Screen (Negative) U Tricyclic Antidepress (Negative) Ur Phencyclidine Scrn (Negative) Ur Amphetamines Screen (Negative) U Methamphetamines Scrn (Negative) Ur MDMA Scrn (Ecstasy) (Negative) U Benzodiazepines Scrn (Negative) Urine Cocaine Screen (Negative) U Marijuana (THC) Screen (Negative) Ethyl Alcohol 429 H* ( - 10) mg/dL 09/17/19 09/17/19 09/18/19 Range/Units 12:17 14:51 03:18 WBC (4.5-11.0) X10^3/uL RBC (4.0-5.2) X10^6/uL Hgb (12.0-16.0) g/dL Hct (36-46) % MCV (80-100) fL MCH (26-34) PG MCHC (30-36) % RDW (11.6-14.8) % Plt Count (150-400) X10^3/uL Neut % (Auto) (50-75) % Lymph % (Auto) (25-40) % [place] % (Auto) (3-14) % Eos % (Auto) (2-4) % Baso % (Auto) (0-2) % Neut # (Auto) (9089-8162) /uL Lymph # (Auto) (0372-3152) /uL [place] # (Auto) (0-900) /uL Eos # (Auto) (0-450) /uL Baso # (Auto) (0-100) /uL Sodium (137-145) mmol/L Potassium (3.4-5.1) mmol/L Chloride (98-107) mmol/L Carbon Dioxide (22-32) mmol/L BUN (7-17) mg/dL Creatinine (0.52-1.04) mg/dL Estimated GFR (>60) mL/min BUN/Creatinine Ratio (6-22) Glucose (70-100) mg/dL Lactate 2.3 H 1.6 (0.7-2.1) mmol/L Calcium (8.4-10.2) mg/dL Total Bilirubin (0.2-1.3) mg/dL AST (14-36) IU/L ALT (<35) IU/L Alkaline Phosphatase (38-126) U/L Total Protein (6.3-8.2) g/dL Albumin (3.5-5.0) g/dL Globulin (1.7-4.1) g/dL Albumin/Globulin Ratio (1.0-2.8) TSH (0.47-4.68) uIU/mL Urine Color Urine Appearance Urine pH (4.5-8.0) Ur Specific [place] (1.000-1.035) Urine Protein (Negative) Urine Glucose (UA) (Negative) g/dL Urine Ketones (NEGATIVE) Urine Occult Blood (Negative) Urine Nitrate (Negative) Urine Bilirubin (NEGATIVE) Urine Urobilinogen (0.2) E.U./dL Ur Leukocyte Esterase (NEGATIVE) Urine RBC (0-5/HPF) Urine WBC (0-5/HPF) Ur Squamous Epith Cells (0-5/HPF) Urine Bacteria (None) Ur Culture Indicated? Urine Test (Negative) Salicylates (<20) mg/dL U Opiates 300ng/mL cut (Negative) Ur Oxycodone Screen (Negative) Urine Methadone Screen (Negative) Acetaminophen (10-30) ug/mL Ur Barbiturates Screen (Negative) U Tricyclic Antidepress (Negative) Ur Phencyclidine Scrn (Negative) Ur Amphetamines Screen (Negative) U Methamphetamines Scrn (Negative) Ur MDMA Scrn (Ecstasy) (Negative) U Benzodiazepines Scrn (Negative) Urine Cocaine Screen (Negative) U Marijuana (THC) Screen (Negative) Ethyl Alcohol < 10 ( - 10) mg/dL Discharge Plan Departure Patient Disposition: [facility] Clinical Impression: Alcoholic intoxication Qualifiers: Complication of substance-induced condition: uncomplicated Qualified Code(s): F10.920 - Alcohol use, unspecified with intoxication, uncomplicated Discharge Date/Time: 09/19/19 08:10 Prescriptions: No Action albuterol sulfate 90 mcg/actuation HFA aerosol inhaler 2 puff INHALATION QID PRN (Reason: shortness of breath or wheezing) Qty: 8 RF: 3 fluocinonide 0.05 % cream 1 applictn TOP BID Qty: 30 RF: 1 fluocinonide 0.05 % solution 1 applictn TOP BID Qty: 60 RF: 1 clonazepam 1 mg tablet 1 mg PO BID Qty: 14 RF: 1 chlordiazepoxide HCl 25 mg capsule 25 mg PO Q12H PRN (Reason: alcohol withdrawal) Qty: 60 RF: 0 Hold Instructions: Home Medication placed on hold at Doctor's office paroxetine HCl [Paxil] 20 mg tablet 20 mg PO DAILY Qty: 90 RF: 2 lamotrigine 100 mg tablet 100 mg PO BID Qty: 180 RF: 3 norethindrone-e.estradiol-iron [Mibel[place] 24 Fe] 1 mg-20 mcg(24) /75 mg (4) tablet,chewable 1 tab PO DAILY Qty: 84 RF: 3 Referrals: Wes Becerra DO [Primary Care Provider] - <Hoda Goff MD - Last Filed: 09/19/19 17:52> Cosign ED Attending Cosignature Attestation: .
[2019-09-17 12:37] LABS: Acetaminophen < 10 ug/mL (10-30); Alanine Aminotransferase 17 IU/L (<35); Albumin 4.5 g/dL (3.5-5.0); Albumin Globulin Ratio 1.7 (1.0-2.8); Alkaline Phosphatase 67 U/L (38-126); Aspartate Aminotransferase 41 IU/L (14-36); BUN Creatinine Ratio 10.8 (6-22); Bilirubin Total 0.3 mg/dL (0.2-1.3); Blood Urea Nitrogen 7 mg/dL (7-17); Calcium 8.4 mg/dL (8.4-10.2); Carbon Dioxide 29 mmol/L (22-32); Chloride 106 mmol/L (98-107); Estimated Glomerular Filt Rate > 60.0 mL/min (>60); Globulin 2.7 g/dL (1.7-4.1); Glucose 110 mg/dL (70-100); HEMOLYSIS < 15 (0-50); Salicylate < 1.0 mg/dL (<20); Sodium 145 mmol/L (137-145); Total Protein 7.2 g/dL (6.3-8.2)
[2019-09-17 12:44] LABS: Ethanol (ETOH) 429 mg/dL
[2019-09-17 12:49] LABS: Lactate (Lactic Acid) 2.3 mmol/L (0.7-2.1)
[2019-09-17 12:50] LABS: UR Morphine/Opiate cutoff 300 Negative (Negative); Ur Creatinine Normal (Normal); Ur Specific Gravity Normal (Normal); Urine Amphetamines Negative (Negative); Urine Barbiturates Negative (Negative); Urine Benzodiazepines Negative (Negative); Urine Cocaine Negative (Negative); Urine MDMA Negative (Negative); Urine Methadone Negative (Negative); Urine Methamphetamines Negative (Negative); Urine Oxycodone Negative (Negative); Urine Phencyclidine Negative (Negative); Urine Tetrahydrocannabinol Positive (Negative); Urine Tricyclic Antidepressant Negative (Negative); Urine pH Normal (Normal)
--- NOTE | 2019-09-17 12:50 | PC.NURSE ---
Pt. Laying down frustrated asking if she can go home.
--- NOTE | 2019-09-17 13:00 | PC.NURSE ---
Pt. was given fluids and snacks has appeared to have calmed down
--- NOTE | 2019-09-17 13:28 | PC.NURSE ---
Jumana from social work in room speaking to pt
--- NOTE | 2019-09-17 13:44 | CM.SWNOTE ---
Addendum entered by ION Bennett 09/17/19 14:46: TROUBLE OPERATOR Update: Spoke w/ Manuelito, [facility] P# [phone], Manuelito is receptionist/telephone operator for [facility]. Requests that patient's CIWA/BAL be allowed to come down at ED before discussing dispatch; Manuelito suggests once BAL comes down patient will be more willing to safety plan. Manuelito further explains that most/all behavioral health/ [place] beds in the [facility] will want to see patient go through a detox process before being admitted (?) behavioral health units are not equipped to assist in the w/d process. Relayed to So and ED staff and suggested patient stay, since she is still considered appropriate to be detained against her will under [place]. Staff agreed. This TROUBLE OPERATOR available until 1600 and will return approx [phone] to reassess needs if patient remains in the ED or admitted to the acute care floor. JW Original Note: TROUBLE OPERATOR Note TROUBLE OPERATOR consult note requested to assess this 24 yo female, arrives via [employer] w/BAL of 429 at 1217 09.17.19. [employer]D/AFD report states that patient had been intoxicated in public, then made it back to her home where, when they responded, she was collapsed in the doorway threatening suicide and stating she had not ate or drank anything and had been drinking heavily. Patient then brought into the ER to be assessed for detainment under [place]. Reviewed prior notes; patient here 6..20 for w/d from psych meds and subsequent heavy ETOH use, assessed by ED TROUBLE OPERATOR Marco Lou and denied SI/HI at that time. patient left the ED with f/u by [facility], Herminio [facility], and PCP Dr. Becerra patient here .20 w/ a BAL of 461, assessed again by ED ION Lou and DCR was requested for detainment under [place] d/t patient's grave disability (failure of outpt plan, no show at doctor's office and off psych meds) patient refusing to seek inpatient or outpatient treatment. Patient had gotten a bed at [facility] and left 08.14.19. Today, nursing staff and provider So Bragg feel patient meets criteria, once again, for detainment under [place] Law, w/recent DC from [facility], immediate heavy ETOH use and inability to care for herself at home. Met w/patient to introduce role, brief conversation as patient will not discuss ETOH use or attempt safety planning w/this TROUBLE OPERATOR. Patient explains that she would like her psych medication so that she could go home. patient refuses inpt or outpt ETOH/psych treatment and states many times to this TROUBLE OPERATOR that she doesn't need ETOH treatment, she drinks because my doctor gave me the boot so I don't have any psych meds or narcotics. Patient states multiple times that I already told you guys, I am not going anywhere, I am going home Relayed to So Bragg, ED provider and she requested DCR request start since patient not wanting to discuss safety planning or treatment options. BAL was approx 400 at 1330 per RN Obdulia Placed call to [facility], DCR requested and awaiting CB to discuss this case ION Bennett
--- NOTE | 2019-09-17 13:46 | PC.NURSE ---
Pt. appears asleep with chest rise and fall.
--- NOTE | 2019-09-17 14:16 | PC.NURSE ---
Pt. appears asleep which chest rise and fall.
[2019-09-17 14:20] LABS: Bacteria Urine None Seen; RBC Urine None Seen (0-5/HPF); WBC Urine None Seen (0-5/HPF)
[2019-09-17 14:22] LABS: Appearance Urine UA CLEAR; Bilirubin Urine UA NEGATIVE (NEGATIVE); Color Urine UA YELLOW; Glucose Urine UA NEGATIVE (Negative); Ketones Urine UA NEGATIVE (NEGATIVE); Leukocyte Esterase Urine UA NEGATIVE (NEGATIVE); Nitrite Urine UA NEGATIVE (Negative); Occult Blood Urine UA NEGATIVE (Negative); Protein Urine UA NEGATIVE (Negative); Urobilinogen Urine UA 0.2 E.U./dL (0.2)
[2019-09-17 14:23] LABS: Pregnancy Test Urine Negative (Negative)
[2019-09-17 14:27] LABS: Culture Indicated Urine Cult Not Indicated; Squamous Epithelial Cell Urine 5-10 /HPF (0-5/HPF)
--- NOTE | 2019-09-17 14:30 | PC.NURSE ---
Pt. appears asleep. Breaths are even and unlabored.
[2019-09-17 14:41] LABS: Reflexed Lactate in 2 Hours Y
[2019-09-17 15:07] LABS: Lactate 2HR (Lactic Acid Rflx) 1.6 mmol/L (0.7-2.1)
[2019-09-17 17:53] VITALS: BP 108/52; PULSE 94; RESP 16; O2SAT 99
--- NOTE | 2019-09-17 18:04 | PC.NURSE ---
Vital signs done, pt. appears asleep with chest rise and fall.
[2019-09-17] MEDS: hydrOXYzine pamoate 25 MG CAPSULE 50 MG PO (18:53)
--- NOTE | 2019-09-17 19:15 | PC.NURSE ---
Pt. is requesting to go home after being told that she'll most likely be staying in the department over night. Pt. is still cooperative with staff.
--- NOTE | 2019-09-17 21:06 | PC.NURSE ---
Parrish Hawley on Pt 1:1 @ 2100. Pt is lying on mattress on floor eyes shut chest rising and falling
[2019-09-18 02:15] VITALS: BP 119/75; PULSE 103; O2SAT 99
[2019-09-18 03:38] LABS: Ethanol (ETOH) < 10 mg/dL
--- NOTE | 2019-09-18 09:25 | PC.NURSE ---
pt came out of room requesting her personal items so that she can go home. Pt stated I'm just waiting for my papers so that I can go home, I've been here for almost a day. Pt given water and is aware that I will speak with the doctor to see what the plan is.
--- NOTE | 2019-09-18 10:10 | PC.NURSE ---
pt in room groaning. When asked if she is ok the pt responded Im just so scared. They're talking about locking me up again and I was told that I would never have to do that again. When asked what the staff can do to help make her less anxious, the pt responded I just need some ativan. I'm freaking out in here. RN Uday aware of pts request for medication. Pt is in room eating breakfast
[2019-09-18] MEDS: LORazepam 0.5 MG TABLET 2 MG PO (10:15)
--- NOTE | 2019-09-18 10:41 | PC.NURSE ---
pt given PO Ativan
--- NOTE | 2019-09-18 11:12 | PC.NURSE ---
pt requesting to go home. Pt is now aware that DCR Jyoti is going to call and speak to her via Ipad to determine whether or not placement will be obtained. Pt stated Well the last time she called they took me against my will somewhere and I can't do that again. I wont do that again. Pt is laying on mattress on ground and was given warm blankets. Door is open and lights are dimmed
--- NOTE | 2019-09-18 12:25 | PC.NURSE ---
This NATIONAL SECRETARY accompanied Jumana with MOTHER BABY RN to have Jyoti DCR talk to the pt via zoom. Pt is adament about not going to [place] stating that the bathrooms were cess pools and that they didnt let her change her underwear for 4 or 5 days. Pt is currently agitated while speaking to the DCR, as well as crying and shaking. Pt started escalating so MOTHER BABY RN left the room. Pt is currently laying on mattress crying. Food and drink are at bedside.
[2019-09-18 12:33] VITALS: BP 130/72; PULSE 111; RESP 17; O2SAT 97
--- NOTE | 2019-09-18 12:33 | PC.NURSE ---
LATE NOTE: 1225 Pt requesting medication to help calm her down. Dr Daly in room speaking to pt
[2019-09-18] MEDS: clonazePAM 0.5 MG TABLET 2 MG PO (12:34)
--- NOTE | 2019-09-18 14:11 | PC.NURSE ---
Pts friend Gaby called to speak with the pt. Pt said that she wanted to sleep right now and to have gaby call back later. Pt expressed agitation towards having to go to a mental health facility for a second time.
--- NOTE | 2019-09-18 14:52 | PC.NURSE ---
8630 Took call from Jyoti Cordoba, DCR . States Pt needs to be served Petition for Initial Fpc, Notice of Rights, and Proof of Service. States these documents should be in possession of Pt upon transfer. States documents are currently being faxed.
--- NOTE | 2019-09-18 15:27 | CM.SWNOTE ---
GLOBAL PROGRAM DIRECTOR Update Discussed case w/nursing staff and w/Carly Daly this morning, patient now with BAL of 0, patient was calm and cooperative overnight, she continues to want to return home and will not admit to current SI or a need for any f/u for her heavy ETOH use, staff feel patient continues to meet criteria to be detained under [place] Law Met w/patient, very brief conversation as patient asks this GLOBAL PROGRAM DIRECTOR when she can go home ? States she slept off the ETOH and is now ready to return home. Patient denies a problem and refuses any treatment at this time. This GLOBAL PROGRAM DIRECTOR suggests staff and friends/family are concerned for patient's safety. Patient minimizes current drinking and states if she was allowed on my meds it would be different Placed call to [facility]OS, requested dispatch of DCR to assess for detainment under [place]'s Law. Then connected w/OMID Jarvis P# [phone]. Reviewed patient's current presentation and faxed clinical to [phone] for Jyoti to review. Discussed plan w/ Jyoti throughout the morning, she felt patient met criteria to be detained under [place]'s Law and [facility] had beds. so this GLOBAL PROGRAM DIRECTOR and SPENCER Mercedes assisted Jyoti by bringing the IPad in for face to face between patient and Jyoti. Jyoti reviewed patient's rights. Patient continued to argue that she only drank because she was not able to get the correct medications. Patient asked if she could please leave and Jyoti let patient know she would be detained against her will to [facility]. Patient became tremulous and admitted she was extremely anxious asked for medication management and said well lets get this over so I can leave this room According to Jyoti's request, CRISTIANO Frye was provided w/number for CRISTIANO Sims at [facility] P# [phone]. Placed call to ED staff at approx 1500 and Jyoti had been in contact. Jyoti was faxing court ppk and requested that ED staff serve ppk to patient. SPENCER Ibanez would be in contact w/ Jyoti to get guidance on this process. Next will be faxing of completed BERNARDO detainment ppk and non emergent BLS would need to be arranged to [place]. This GLOBAL PROGRAM DIRECTOR following closely. Shift ends at 1630, available to assist until that time, will return Saturday AM ION Bennett
--- NOTE | 2019-09-18 17:20 | PC.NURSE ---
I have talked with Jyoti ANNE, she obtained an BERNARDO bed at [facility] in [facility](address [address], [place]). I called to [facility] and talked with Nurse Gilda, informing her of an updated ambulance transfer time pickup at 0745 tomorrow morning (09/19/19) with [facility]. Arrival in [place] approximately 1700 on 09/19/19. Dr. Omar Lind is accepting physician at [facility]. Number for Report is . Gilda spoke with understanding to hold the bed until specified time tomorrow evening. Uday QUINONEZ and myself will serve the patient with the court ordered documentation.
[2019-09-18 17:40] VITALS: BP 122/77; PULSE 97; RESP 16; O2SAT 98
--- NOTE | 2019-09-18 17:40 | PC.NURSE ---
pt started yelling hello in the room. When asked what was wrong the pt stated I'm still waiting. I've been waiting for a long time and the meds aren't doing anything. When told the [facility] ambulance would be here to pick her up at 0745 tomorrow morning the pt asked where she was going. This RIDING TEACHER told the pt that the ambulance will be taking her to [place]. Pt then became tearful and requested more medication. Pt refused meal tray. Pt given warm blankets and Dr Daly is aware of request for more medication.
[2019-09-18] MEDS: clonazePAM 0.5 MG TABLET 1 MG PO (19:27)
[2019-09-18 19:28] VITALS: BP 131/75; PULSE 96; RESP 17; O2SAT 97
--- NOTE | 2019-09-18 19:30 | PC.NURSE ---
Pt being served court papers stating that she is being detained. Pt is tearful and asking questions as to why she is not voluntary. Pt claims that she is voluntary and shouldn't have to be detained. Skyla Frye and Jolene at bedside.
--- NOTE | 2019-09-18 19:33 | PC.NURSE ---
Pt claiming that she wants medication to help her sleep. Pt states I just want anything you can give me to make me sleep. Please. Give me the shot that you guys give me when I'm dramatic or something to help me sleep. Pt is aware that the doctor will come speak with her after shift change to help come up with a plan to make her more comfortable.
--- NOTE | 2019-09-18 19:33 | PC.NURSE ---
Patient served in accordance with DCR instructions. Necessary forms in Patients possession.
--- NOTE | 2019-09-18 22:07 | PC.NURSE ---
PT tearful states she wants shot in butt to help her sleep, Dr Ramirez aware.
[2019-09-18] MEDS: HALOPERIDOL 5 MG/ML VIAL IM (22:51)
[2019-09-18] MEDS: diphenhydrAMINE 50 MG/ML VIAL 25 MG IM (22:51)
[2019-09-18 23:08] VITALS: BP 115/58; PULSE 74; RESP 16; O2SAT 99
--- NOTE | 2019-09-18 23:09 | PC.NURSE ---
Report given to katt Saez CNA. Pt is laying on mattress on ground with blanket covering her face. Pt just got medication and was agreeable to another set of vital signs.
[2019-09-19 04:00] VITALS: BP 130/69; PULSE 78; RESP 16; TEMP 36.3; O2SAT 97
--- NOTE | 2019-09-19 04:36 | PC.NURSE ---
Patient is laying on mattress, door is open to hallway.
[2019-09-19 08:05] VITALS: BP 114/58; PULSE 91; RESP 16; TEMP 36.7; O2SAT 97
--- NOTE | 2019-09-19 08:05 | PC.NURSE ---
patient is talking with the nurse about anxiety medication for the ambulance transport
[2019-09-19] MEDS: clonazePAM 0.5 MG TABLET 2 MG PO (08:08)
--- NOTE | 2019-09-19 08:13 | PC.NURSE ---
Update called to Gilda at [facility]. Informed of meds given and pt's departure. Pt was anxious but calm and cooperative.
== END 2019-09-19 08:10 | disposition short-term general hospital (02) ==
PROVIDERS: Emergency Medicine; Nurse Practitioner Family; Emergency Provider Emergency Medicine; PCP Family Medicine
DX: F10.929 Alcohol use, unspecified with intoxication, unspecified (principal); F12.90 Cannabis use, unspecified, uncomplicated; Y90.8 Blood alcohol level of 240 mg/100 ml or more
CPT/HCPCS: 36415; 80053; 80305; 80320; 80329; 81001; 81025; 83605; 84443; 85025; 96372; 99284; G0480; J1200; J1630

== ENCOUNTER 2020-04-14 07:32 | Emergency (ER) | payer OTHER, MEDICAID, SELFPAY ==
[2020-04-14] VITALS (11 sets, daily range): BP systolic 115–148; BP diastolic 59–86; PULSE 68–92; RESP 16–28; O2SAT 91–100; BMI 22.8
--- NOTE | 2020-04-14 07:43 | DI.RAD.S_ITS ---
PROCEDURE: XR PELVIS 1-2V INDICATIONS: trauma TECHNIQUE: 1 view(s) of the pelvis acquired. COMPARISON: None. FINDINGS: Bones: No fractures or dislocations. No suspicious bony lesions. Soft tissues: Visualized bowel gas pattern is normal. No suspicious soft tissue calcifications. IMPRESSION: No acute fracture. No osseous lesion. If symptoms and/or clinical suspicion for pathology persist, further assessment with repeat, or advanced imaging (e.g., CT, MRI, or bone scan) may be helpful for further assessment. Dictated by: Derik Frausto M.D. on 04/14/2020 at 8:35 Approved by: Derik Frausto M.D. on 04/14/2020 at 8:36
--- NOTE | 2020-04-14 07:44 | DI.RAD.S_ITS ---
PROCEDURE: XR CHEST 1V INDICATIONS: trauma TECHNIQUE: One view of the chest was acquired. COMPARISON: [facility], CR, XR CHEST 1V, 08/05/2019, 18:38. FINDINGS: Surgical changes and devices: None. Lungs and pleura: Lungs are clear. No pleural effusions or pneumothorax. Mediastinum: Mediastinal contours appear normal. Heart size is normal. Bones and chest wall: No suspicious bony lesions. Overlying soft tissues appear unremarkable. IMPRESSION: No acute process. Dictated by: Derik Frausto M.D. on 04/14/2020 at 8:34 Approved by: Derik Frausto M.D. on 04/14/2020 at 8:35
--- NOTE | 2020-04-14 07:44 | DI.CT.S_ITS ---
PROCEDURE: CT HEAD/BRAIN WO CON INDICATIONS: Trauma TECHNIQUE: Noncontrast 4.5 mm thick angled axial sections acquired from the foramen magnum to the vertex, with coronal and sagittal reformats. For radiation dose reduction, the following was used: automated exposure control, adjustment of mA and/or kV according to patient size. COMPARISON: None. FINDINGS: Image quality: Image degraded by moderate patient motion artifact. CSF spaces: Basal cisterns are patent. No extra-axial fluid collections. Ventricles are normal in size and shape. Brain: No midline shift. No intracranial masses or hemorrhage. Swan-white matter interface is normal. Skull and face: Calvarium appears intact, without suspicious lesions. There is mild superficial soft tissue swelling of the right forehead. Moderate motion artifact limits evaluation of the nasal bones. Sinuses: Visualized sinuses and mastoids are clear. IMPRESSION: 1. CT head without acute intracranial abnormalities. 2. Mild superficial soft tissue swelling overlying the right forehead region without underlying calvarial fractures. Motion artifact limits evaluation of the nasal bones. Dictated by: Robin Miramontes M.D. on 04/14/2020 at 8:14 Approved by: Robin Miramontes M.D. on 04/14/2020 at 8:17
--- NOTE | 2020-04-14 07:44 | DI.US.S_ITS ---
PROCEDURE: US ABDOMEN LIMITED INDICATIONS: TRAUMA TECHNIQUE: Real-time focused scanning was performed of the abdomen, with image documentation. COMPARISON: None. FINDINGS: No significant free fluid in any four quadrants. Liver and spleen appear grossly intact IMPRESSION: 1. No significant free fluid in the peritoneal cavity. Dictated by: April Bentley M.D. on 04/14/2020 at 8:18 Approved by: April Bentley M.D. on 04/14/2020 at 8:19
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
--- NOTE | 2020-04-14 07:49 | DI.RAD.S_ITS ---
PROCEDURE: XR FOOT LT MIN 3V INDICATIONS: 5th toe pain TECHNIQUE: 3 views of the foot were acquired. COMPARISON: None. FINDINGS: Bones: There is a minimally displaced fracture of the 4th metatarsal head/neck. No suspicious bony lesions. Soft tissues: No suspicious soft tissue calcification. IMPRESSION: Minimally displaced fracture of the 4th metatarsal head/neck. Dictated by: Julio Burden M.D. on 04/14/2020 at 8:41 Approved by: Julio Burden M.D. on 04/14/2020 at 8:42
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
[2020-04-14] MEDS: ONDANSETRON 4 MG/2 ML INJ IV (07:59)
[2020-04-14] MEDS: MORPHINE 4 MG/ML INJ IV (07:59)
[2020-04-14 08:01] LABS: Add Manual Diff / Slide Review NO; Basophils Absolute Auto 100 /uL (0-100); Basophils Percent Auto 0.8 % (0-2); Eosinophils Absolute Auto 100 /uL (0-450); Eosinophils Percent Auto 1.4 % (2-4); Hemoglobin 12.6 g/dL (12.0-16.0); Lymphocytes Absolute Auto 2100 /uL (1100-4500); Lymphocytes Percent Auto 21.7 % (25-40); Mean Corpuscular HGB Conc 33.3 % (30-36); Mean Corpuscular Hemoglobin 31.4 PG (26-34); Mean Corpuscular Volume 94.4 fL (80-100); Monocytes Absolute Auto 1100 /uL (0-900); Monocytes Percent Auto 10.8 % (3-14); Neutrophils Absolute Auto 6400 /uL (1500-7000); Neutrophils Percent Auto 65.3 % (50-75); Platelet Count 336 X10^3/uL (150-400); Red Blood Cell Count 4.03 X10^6/uL (4.0-5.2); Red Cell Distribution Width 12.8 % (11.6-14.8); White Blood Cell Count 9.7 X10^3/uL (4.5-11.0)
[2020-04-14] MEDS: TET,DIPH,PERTUSS(ACELL),VAC/PF 0.5 ML SYRINGE IM (08:02)
[2020-04-14] MEDS: SODIUM CHLORIDE 0.9% 1,000 ML 150 ML IV (08:03)
[2020-04-14 08:07] LABS: INR 0.9 (0.9-1.3); Prothrombin Time 10.5 SECONDS (10.1-12.7)
[2020-04-14 08:10] LABS: PTT Partial Thromboplastin Tim 32 SECONDS (26.4-36.2)
[2020-04-14 08:11] LABS: Alanine Aminotransferase 14 IU/L (<35); Albumin 4.2 g/dL (3.5-5.0); Albumin Globulin Ratio 1.4 (1.0-2.8); Alkaline Phosphatase 60 U/L (38-126); Aspartate Aminotransferase 25 IU/L (14-36); BUN Creatinine Ratio 11.3 (6-22); Bilirubin Total 0.2 mg/dL (0.2-1.3); Blood Urea Nitrogen 9 mg/dL (7-17); Calcium 8.5 mg/dL (8.4-10.2); Carbon Dioxide 29 mmol/L (22-32); Chloride 104 mmol/L (98-107); Estimated Glomerular Filt Rate > 60.0 mL/min (>60); Ethanol (ETOH) 11 mg/dL; Globulin 2.9 g/dL (1.7-4.1); Glucose 110 mg/dL (70-100); HEMOLYSIS < 15 (0-50); Lipase 80 U/L (23-300); Potassium 3.5 mmol/L (3.4-5.1); Sodium 138 mmol/L (137-145); Total Protein 7.1 g/dL (6.3-8.2)
[2020-04-14] MEDS: KETOROLAC 60 MG/2 ML VIAL 30 MG IV (09:38)
[2020-04-14] MEDS: LIDO 1%/SOD BICARB 8.4% (10ML) 10 ML SYRINGE INJ (09:38)
[2020-04-14] MEDS: LIDOCAINE VISCOUS 2% 15 ML SOLUTION PO (09:38)
--- NOTE | 2020-04-14 12:45 | PC.NURSE ---
walking boot and crutches provided to pt.
== END 2020-04-14 12:45 | disposition home or self-care (01) ==
PROVIDERS: Emergency Provider Emergency Medicine; PCP Family Medicine
DX: S01.511A Laceration without foreign body of lip, initial encounter (principal); S02.5XXA Fracture of tooth (traumatic), initial encounter for closed fracture; S06.0X0A Concussion without loss of consciousness, initial encounter; S01.21XA Laceration without foreign body of nose, initial encounter; S01.442A Puncture wound with foreign body of left cheek and temporomandibular area, initial encounter; F41.9 Anxiety disorder, unspecified; Z23 Encounter for immunization; V89.2XXA Person injured in unspecified motor-vehicle accident, traffic, initial encounter
CPT/HCPCS: 12011; 36415; 70450; 70486; 71045; 72125; 72170; 73630; 76705; 80053; 80320; 83690; 85025; 85610; 85730; 86850; 86900; 86901; 90471; 93005; 93010; 96361; 96374; 96375; 99284; 90715; J1885; J2270; J2405

== ENCOUNTER 2020-06-30 14:11 | Emergency (ER) | payer OTHER, MEDICAID, SELFPAY ==
[2020-06-30 14:27] VITALS: BP 123/59; PULSE 103; RESP 15; TEMP 36.9; O2SAT 100; BMI 22.0
--- NOTE | 2020-06-30 14:32 | DI.RAD.S_ITS ---
PROCEDURE: XR SHOULDER LT MIN 2V INDICATIONS: shoulder pain TECHNIQUE: 3 views of the shoulder were acquired. COMPARISON: None. FINDINGS: Bones: No fractures or dislocations. No suspicious bony lesions. Visualized ribs appear intact. Soft tissues: No suspicious soft tissue calcifications. IMPRESSION: No evidence acute bony abnormality of the left shoulder. If clinical suspicion and/or symptoms persist, further assessment with repeat plain films, or advanced imaging (e.g., CT, MRI, or bone scan) may be helpful for further assessment. Dictated by: Anastacio Salazar M.D. on 06/30/2020 at 14:48 Approved by: Anastacio Salazar M.D. on 06/30/2020 at 14:49
--- NOTE | 2020-06-30 16:16 | ED_ITS ---
HPI - Extremity Problem General Chief complaint: Extremity Problem,Nontraumatic Stated complaint: states pinched nerve x2 wks,heard a pop Time Seen by Provider: 06/30/20 15:59 Source: patient Mode of arrival: Wheelchair Limitations: no limitations History of Present Illness HPI Narrative: Patient is a 25-year-old female here for evaluation of left shoulder discomfort. She states she has had a pinched nerve for the past couple weeks and recently heard a pop in her collar bone and since then her symptoms have been worsening. There has not been any specific trauma. She has not take any medications for it. Has not been evaluated for it. Related Data Previous Rx's Medication Instructions Recorded albuterol sulfate 90 mcg/actuation 2 puff INHALATION QID PRN #8 gram 11/18/18 aerosol inhaler fluocinonide 0.05 % topical cream 1 applictn TOP BID #30 gram 04/13/19 fluocinonide 0.05 % topical 1 applictn TOP BID #60 ml 04/13/19 solution paroxetine HCl 20 mg tablet 20 mg PO DAILY #90 tab 04/22/19 chlordiazepoxide HCl 25 mg capsule 25 mg PO Q12H PRN #60 cap 05/01/19 lamotrigine 100 mg tablet 100 mg PO BID #180 tab 05/20/19 norethindrone 1 mg-e. estradiol 20 1 tab PO DAILY #84 tab 05/20/19 mcg (24)-iron 75 mg (4) chew tablet clonazepam 1 mg tablet 1 mg PO BID #14 tab 08/04/19 ondansetron HCl [Zofran] 4 mg PO Q6H PRN #10 tab 04/14/20 oxycodone-acetaminophen [Percocet] 1 tab PO Q6H PRN #14 tab 04/14/20 Allergies Allergy/AdvReac Type Severity Reaction Status Date / Time latex Allergy Severe burning, Verified 06/30/20 14:26 redness Review of Systems Constitutional Constitutional: Denies fatigue and Denies headache(s) Eyes Eyes: Denies change in vision ENT Ears, Nose, Mouth, and Throat: Denies headache(s) Cardiovascular Cardiovascular: Denies chest pain and Denies dyspnea Respiratory Respiratory: Denies dyspnea Gastrointestinal Gastrointestinal: Denies abdominal pain Musculoskeletal Musculoskeletal: Denies tingling Comments: Left shoulder pain Integumentary/Breasts Skin/Breast: Denies lesions and Denies rash Neurologic Neurologic: Denies headache(s) and Denies tingling Psychiatric Psychiatric: Denies anxiety Endocrine Endocrine: Denies fatigue Hematologic/Lymphatic On Anticoagulants: No Allergic/Immunologic Allergic/Immunologic: Denies urticaria Patient History Medical History Abnormal Pap smear of cervix (~2012) Acne (~2007) Acne (Unknown) ADHD (~2012) Anemia (~2012) Anxiety (~2012) Asthma (~2008) Bipolar 1 disorder (~2012) Chickenpox (~2002) Depression (~2012) Eczema (~2004) Eczema (Unknown) Heavy menstrual period (~2007) 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) Irregular menstrual cycle (~2005) Psoriasis (~2004) Scoliosis (~2005) Skin cancer (~2014) Family History Mother Skin cancer Mental health problem Grandmother Hypertension Diabetes mellitus Mental health problem Hyperlipidemia Social History marital status: unmarried,single pets and animals: No education level: college occupational status: employed seatbelt use: always helmet use: Yes water heater temp set < 120 deg: Yes working smoke detector in home: Yes fire extinguisher in home: Yes carbon monox detector in home: Yes firearms in home: Yes Smoking Status: Current some day smoker Tobacco: How many years used: 1 Smokeless tobacco user: other quit status: has quit before second hand exposure: No alcohol intake: current substance use type: former substance user and marijuana during the past year weight has: increased > 10 lbs well-balanced diet: daily or most days daily servings fruits/veg: other caffeine: Yes eating out: rarely or never Type(s) of exercise: additional frequency: 3-4 times per week duration: 15-30 minutes/day Smoking Status: Current some day smoker alcohol intake frequency: other Alcohol type: hard liquor Substance Use Type: marijuana Exam Initial Vital Signs Initial Vital Signs: Vital Signs Temperature 98.4 F 06/30/20 14:27 Pulse Rate 103 H 06/30/20 14:27 Respiratory Rate 15 06/30/20 14:27 Blood Pressure 123/59 L 06/30/20 14:27 Pulse Oximetry 100 06/30/20 14:27 Const General: cooperative, comfortable and well developed Limitations: mental status not altered HENNM Head: normal to inspection and normocephalic Resp Effort & Inspection: normal respiratory effort Cardio Pulses: radial pulses present on the left Back/Spine/Pelvis Other: Tenderness over the left scapula Skin Lesions: no lesions Rashes: no rashes Neuro General: patient alert and patient awake Sensory Exam: no sensory deficits noted Extrem Other: Patient with tenderness to palpation of the supraspinatus and has a positive [place] test. Her Neer test is negative. Cross-arm test is positive. She has a negative drop can test. Psych Appearance: grossly normal and well kempt Course Orders Ordered: ED Orders 06/30/20 14:32 XR shoulder LT min 2V Stat Discontinued Medications Ketorolac Tromethamine (Ketorolac 30 Mg/Ml Vial) 30 mg IM NOW ONE Stop: 06/30/20 16:24 Last Admin: 06/30/20 16:38 Dose: 30 mg Documented by: YVONNE Vital Signs Vital signs: Vital Signs - 8 hr 06/30/20 14:27 06/30/20 16:52 Temperature 98.4 F Pulse Rate 103 H 85 Respiratory Rate 15 14 Blood Pressure 123/59 L 116/64 Pulse Oximetry 100 100 MDM - Extremity (Nontraumatic) Imaging Data Extremity x-ray #1: Radiologist's Impression: [address] [id number] ReportSigned Patient: Isa Torres CMR#: [id number]: [id number]:[id number]/Sex: 25 / FDate of Service: 06/30/20Loc: EDAccession Number: [id number] Procedure: XR shoulder LT min 2V Ordering Provider: Hoda Goff MD PROCEDURE: XR SHOULDER LT MIN 2V INDICATIONS: shoulder pain TECHNIQUE: 3 views of the shoulder were acquired. COMPARISON: None. FINDINGS: Bones: No fractures or dislocations. No suspicious bony lesions. Visualized ribs appear intact. Soft tissues: No suspicious soft tissue calcifications. IMPRESSION: No evidence acute bony abnormality of the left shoulder. If clinical suspicion and/or symptoms persist, further assessment with repeat plain films, or advanced imaging (e.g., CT, MRI, or bone scan) may be helpful for further assessment. Dictated by: Anastacio Salazar M.D. on 06/30/2020 at 14:48 Approved by: Anastacio Salazar M.D. on 06/30/2020 at 14:49 [facility] Narrative Medical decision making narrative: Neurovascular intact, x-ray shows no signs of fracture dislocation. Her physical exam was consistent with a supraspinatus injury. I have low suspicion for a complete rotator cuff tear given her presentation today. We did discuss the use of anti-inflammatories. She will also contact her primary doctor about getting a referral for physical therapy. She was given return precautions. She expressed understanding and agreement. Discharge Plan Departure Patient Disposition: Home Clinical Impression: Rotator cuff strain Instructions: DI for Shoulder Pain Activity Restrictions/Additional Instructions: Recommend you continue all of your medicines as directed. I recommend you talk with her primary doctor about a referral for physical therapy. I suspect that you have a degree of left shoulder rotator cuff injury. Continue with anti- inflammatories such as Tylenol/ibuprofen. You can also use ice. Prescriptions: No Action albuterol sulfate 90 mcg/actuation HFA aerosol inhaler 2 puff INHALATION QID PRN (Reason: shortness of breath or wheezing) Qty: 8 RF: 3 fluocinonide 0.05 % cream 1 applictn TOP BID Qty: 30 RF: 1 fluocinonide 0.05 % solution 1 applictn TOP BID Qty: 60 RF: 1 clonazepam 1 mg tablet 1 mg PO BID Qty: 14 RF: 1 chlordiazepoxide HCl 25 mg capsule 25 mg PO Q12H PRN (Reason: alcohol withdrawal) Qty: 60 RF: 0 Hold Instructions: Home Medication placed on hold at Doctor's office paroxetine HCl [Paxil] 20 mg tablet 20 mg PO DAILY Qty: 90 RF: 2 lamotrigine 100 mg tablet 100 mg PO BID Qty: 180 RF: 3 norethindrone-e.estradiol-iron [Mibel[place] 24 Fe] 1 mg-20 mcg(24) /75 mg (4) tablet,chewable 1 tab PO DAILY Qty: 84 RF: 3 ondansetron HCl [Zofran] 4 mg tablet 4 mg PO Q6H PRN (Reason: nausea and vomiting) Qty: 10 RF: 0 oxycodone-acetaminophen [Percocet] 5-325 mg tablet 1 tab PO Q6H PRN (Reason: pain) Qty: 14 RF: 0 Referrals: Miscellaneous,Doctor, MD [Primary Care Provider] -
[2020-06-30] MEDS: KETOROLAC 30 MG/ML VIAL IM (16:38)
[2020-06-30 16:52] VITALS: BP 116/64; PULSE 85; RESP 14; O2SAT 100
== END 2020-06-30 16:54 | disposition home or self-care (01) ==
PROVIDERS: Emergency Provider Emergency Medicine
DX: S46.012A Strain of muscle(s) and tendon(s) of the rotator cuff of left shoulder, initial encounter (principal)
CPT/HCPCS: 73030; 96372; 99283; J1885

== ENCOUNTER 2020-10-03 05:54 | Emergency (ER) | payer OTHER, MEDICAID, SELFPAY ==
[2020-10-03] VITALS (28 sets, daily range): BP systolic 125–163; BP diastolic 72–94; PULSE 75–110; RESP 7–37; TEMP 36.2; O2SAT 94–100; BMI 28.3
--- NOTE | 2020-10-03 06:04 | ED_ITS ---
HPI - Abdominal Pain <Ziyad May, DO - Last Filed: 10/04/20 03:16> General Chief Complaint: Altered Mental Status Stated Complaint: ABD Pain Time Seen by Provider: 10/03/20 06:00 History of Present Illness HPI narrative: 25-year-old female smoker with history of alcohol and illicit drug use presents by EMS for evaluation of an unresponsive episode. And unknown reporting alliance party called police and this resulted in patient being found unresponsive. They were preparing to administer Narcan when patient said she was awake and feeling nauseated complaining of abdominal pain. She states she feels like she used to when she would use here when it does not remember using. She does admit to drinking last night. She feels weak and fatigued and nauseated with generalized abdominal pain. She denies any dysuria, frequency or urgency. Related Data Previous Rx's Medication Instructions Recorded albuterol sulfate 90 mcg/actuation 2 puff INHALATION QID PRN #8 gram 11/18/18 aerosol inhaler fluocinonide 0.05 % topical cream 1 applictn TOP BID #30 gram 04/13/19 fluocinonide 0.05 % topical 1 applictn TOP BID #60 ml 04/13/19 solution paroxetine HCl 20 mg tablet (Paxil) 20 mg PO DAILY #90 tab 04/22/19 chlordiazepoxide HCl 25 mg capsule 25 mg PO Q12H PRN #60 cap 05/01/19 lamotrigine 100 mg tablet 100 mg PO BID #180 tab 05/20/19 norethindrone 1 mg-e. estradiol 20 1 tab PO DAILY #84 tab 05/20/19 mcg (24)-iron 75 mg (4) chew tablet (Mibelas 24 Fe) clonazepam 1 mg tablet 1 mg PO BID #14 tab 08/04/19 ondansetron HCl 4 mg tablet 4 mg PO Q6H PRN #10 tab 04/14/20 (Zofran) oxycodone-acetaminophen 5 mg-325 1 tab PO Q6H PRN #14 tab 04/14/20 mg tablet (Percocet) ondansetron 4 mg disintegrating 4 mg PO QID PRN #10 tab 10/03/20 tablet Allergies Allergy/AdvReac Type Severity Reaction Status Date / Time latex Allergy Severe burning, Verified 06/30/20 14:26 redness <So Bonilla DO - Last Filed: 10/03/20 19:31> Review of Systems ROS Unobtainable: All systems reviewed & are unremarkable except as noted in HPI and below Patient History <Ziyad May DO - Last Filed: 10/04/20 03:16> Medical History (Updated 10/03/20 @ 12:04 by So Bonilla DO) Abnormal Pap smear of cervix (~2012) Acne (~2007) Acne (Unknown) ADHD (~2012) Anemia (~2012) Anxiety (~2012) Asthma (~2008) Bipolar 1 disorder (~2012) Chickenpox (~2002) Depression (~2012) Eczema (~2004) Eczema (Unknown) Heavy menstrual period (~2007) 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) Irregular menstrual cycle (~2005) Psoriasis (~2004) Scoliosis (~2005) Skin cancer (~2014) Family History Mother Skin cancer Mental health problem Grandmother Hypertension Diabetes mellitus Mental health problem Hyperlipidemia Social History marital status: unmarried,single pets and animals: No education level: college occupational status: employed seatbelt use: always helmet use: Yes water heater temp set < 120 deg: Yes working smoke detector in home: Yes fire extinguisher in home: Yes carbon monox detector in home: Yes firearms in home: Yes Smoking Status: Current some day smoker Tobacco: How many years used: 1 Smokeless tobacco user: other quit status: has quit before second hand exposure: No alcohol intake: current substance use type: former substance user and marijuana during the past year weight has: increased > 10 lbs well-balanced diet: daily or most days daily servings fruits/veg: other caffeine: Yes eating out: rarely or never Type(s) of exercise: additional frequency: 3-4 times per week duration: 15-30 minutes/day Smoking Status: Current some day smoker alcohol intake frequency: other Alcohol type: hard liquor Substance Use Type: marijuana Exam <Ziyad May DO - Last Filed: 10/04/20 03:16> Narrative Exam Narrative: GENERAL: [25] year old patient appears stated age. Well- developed patient, appears unwell HEAD: Atraumatic. Normocephalic. EYES: Pupils equal round and reactive. Extraocular motions intact. No scleral icterus. No injection or drainage. ENT: Nose without bleeding, purulent drainage. Throat without erythema, tonsillar hypertrophy or exudate. Airway patent. NECK: Trachea midline. Non tender CARDIOVASCULAR: Regular rate and rhythm without murmurs, gallops, or rubs. RESPIRATORY: Clear to auscultation. Breath sounds equal bilaterally. No wheezes, rales, or rhonchi. GASTROINTESTINAL: Abdomen soft, non-tender, nondistended. EXTREMITIES: No edema or joint tenderness. BACK: Nontender without deformity or crepitance. No flank tenderness. NEURO: AOx3. SKIN: No rash or erythema of visible areas Initial Vital Signs Initial Vital Signs: Vital Signs Temperature 97.2 F L 10/03/20 06:02 Pulse Rate 88 10/03/20 06:02 Respiratory Rate 10 L 10/03/20 06:02 Blood Pressure 134/87 10/03/20 06:02 Pulse Oximetry 95 10/03/20 06:02 <So Bonilla, DO - Last Filed: 10/03/20 19:31> Initial Vital Signs Initial Vital Signs: Vital Signs Temperature 97.2 F L 10/03/20 06:02 Pulse Rate 88 10/03/20 06:02 Respiratory Rate 10 L 10/03/20 06:02 Blood Pressure 134/87 10/03/20 06:02 Pulse Oximetry 95 10/03/20 06:02 Course <Ziyad May, DO - Last Filed: 10/04/20 03:16> Orders Ordered: Discontinued Medications Lactated Ringer's (Lactated Ringers) 1,000 mls @ 1,000 mls/hr IV BOLUS ONE Stop: 10/03/20 07:01 Last Infusion: 10/03/20 11:07 Dose: 0 mls/hr Documented by: Admin: 10/03/20 06:48 Dose: 1,000 mls/hr Documented by: BALDO Naloxone HCl (Naloxone 0.4 Mg/Ml Vial) 0.1 mg IV Q2MIN PRN PRN Reason: Opiate Reversal Last Admin: 10/03/20 06:38 Dose: 0.1 mg Documented by: LUCY Ondansetron HCl (Ondansetron 4 Mg/2 Ml Inj) 4 mg IV NOW ONE Stop: 10/03/20 08:50 Last Admin: 10/03/20 08:55 Dose: 4 mg Documented by: TANIYA Reevaluation(s) Reevaluation #1: Patient continues to have episodes in which she becomes apneic, small does of Narcan ordered. Vital Signs Vital signs: Vital Signs - 8 hr 10/03/20 11:30 10/03/20 11:45 10/03/20 12:00 Pulse Rate 78 78 86 Respiratory Rate 19 17 19 Blood Pressure 140/88 131/84 136/86 Pulse Oximetry 100 97 98 10/03/20 12:15 Pulse Rate 86 Respiratory Rate 21 Blood Pressure 131/81 Pulse Oximetry 100 <So Bonilla, - Last Filed: 10/03/20 19:31> Orders Ordered: Discontinued Medications Lactated Ringer's (Lactated Ringers) 1,000 mls @ 1,000 mls/hr IV BOLUS ONE Stop: 10/03/20 07:01 Last Infusion: 10/03/20 11:07 Dose: 0 mls/hr Documented by: Admin: 10/03/20 06:48 Dose: 1,000 mls/hr Documented by: BALDO Naloxone HCl (Naloxone 0.4 Mg/Ml Vial) 0.1 mg IV Q2MIN PRN PRN Reason: Opiate Reversal Last Admin: 10/03/20 06:38 Dose: 0.1 mg Documented by: LUCY Ondansetron HCl (Ondansetron 4 Mg/2 Ml Inj) 4 mg IV NOW ONE Stop: 10/03/20 08:50 Last Admin: 10/03/20 08:55 Dose: 4 mg Documented by: TANIYA Reevaluation(s) Reevaluation #2: Patient and seen and evaluated by myself. Physical exam was reassuring here in the department. She was signed out by Dr. May. Patient came in last night for altered mental status and did receive a dose of Narcan here in the department because of episodes of apnea. Patient is now off O2, her vitals are stable. Her labs show an elevated platelet count but and slightly low potassium. Patient is agreeable for [facility] consult regarding her living circumstances. Discussed with patient and she is agreeable to stay until that time at this moment. Time: 07:56 Reevaluation #3: Patient re-evaluated after evaluation with social work. She does not wish for any additional resources. CT abdomen pelvis was obtained if she continued to have some nausea and vomiting which has since stopped but was complaining quite a bit abdominal pain she has changes consistent with enteritis, this could be secondary to the Narcan or possible viral type infection but no emergent acute intra-abdominal process is appreciated. Patient was able to tolerate some orals here prior to discharge. We did discuss options for safety as she has some concerns about safety at her home she is aware of shelters that are available to her, she deferred any resources from the health care social worker. She did not have any alternate options that she wished for us to contact. Vital Signs Vital signs: Vital Signs - 8 hr 10/03/20 11:30 10/03/20 11:45 10/03/20 12:00 Pulse Rate 78 78 86 Respiratory Rate 19 17 19 Blood Pressure 140/88 131/84 136/86 Pulse Oximetry 100 97 98 10/03/20 12:15 Pulse Rate 86 Respiratory Rate 21 Blood Pressure 131/81 Pulse Oximetry 100 MDM - Abdominal Pain <Ziyad May DO - Last Filed: 10/04/20 03:16> Lab Data Result diagrams: 10/03/20 06:06 10/03/20 06:06 Labs: Lab Results 10/03/20 10/03/20 10/03/20 Range/Units 06:06 06:06 08:56 WBC 7.8 (4.5-11.0) X10^3/uL RBC 4.16 (4.0-5.2) X10^6/uL Hgb 12.7 (12.0-16.0) g/dL Hct 38.9 (36-46) % MCV 93.3 (80-100) fL MCH 30.5 (26-34) PG MCHC 32.7 (30-36) % RDW 13.4 (11.6-14.8) % Plt Count 409 H (150-400) X10^3/uL Neut % (Auto) 57.8 (50-75) % Lymph % (Auto) 31.5 (25-40) % [place] % (Auto) 8.4 (3-14) % Eos % (Auto) 1.0 L (2-4) % Baso % (Auto) 1.3 (0-2) % Neut # (Auto) 4500 (5134-5155) /uL Lymph # (Auto) 2500 (9190-4600) /uL [place] # (Auto) 700 (0-900) /uL Eos # (Auto) 100 (0-450) /uL Baso # (Auto) 100 (0-100) /uL Sodium 142 (137-145) mmol/L Potassium 3.2 L (3.4-5.1) mmol/L Chloride 108 H (98-107) mmol/L Carbon Dioxide 24 (22-32) mmol/L BUN 8 (7-17) mg/dL Creatinine 0.70 (0.52-1.04) mg/dL Estimated GFR > 60.0 (>60) mL/min BUN/Creatinine Ratio 11.4 (6-22) Glucose 152 H (70-100) mg/dL Calcium 8.4 (8.4-10.2) mg/dL Total Bilirubin 0.2 (0.2-1.3) mg/dL AST 60 H (14-36) IU/L ALT 27 (<35) IU/L Alkaline Phosphatase 66 (38-126) U/L Total Protein 7.0 (6.3-8.2) g/dL Albumin 4.1 (3.5-5.0) g/dL Globulin 2.9 (1.7-4.1) g/dL Albumin/Globulin Ratio 1.4 (1.0-2.8) Lipase 71 (23-300) U/L Serum , Qual Negative (Negative) Urine Color Urine Appearance Urine pH (4.5-8.0) Ur Specific [place] (1.000-1.035) Urine Protein (Negative) Urine Glucose (UA) (Negative) g/dL Urine Ketones (NEGATIVE) Urine Occult Blood (Negative) Urine Nitrate (Negative) Urine Bilirubin (NEGATIVE) Urine Urobilinogen (0.2) E.U./dL Ur Leukocyte Esterase (NEGATIVE) Urine RBC (0-5/HPF) Urine WBC (0-5/HPF) Urine Bacteria (None) Ur Culture Indicated? U Opiates 300ng/mL cut (Negative) Ur Oxycodone Screen (Negative) Urine Methadone Screen (Negative) Ur Barbiturates Screen (Negative) U Tricyclic Antidepress (Negative) Ur Phencyclidine Scrn (Negative) Ur Amphetamines Screen (Negative) U Methamphetamines Scrn (Negative) Ur MDMA Scrn (Ecstasy) (Negative) U Benzodiazepines Scrn (Negative) Urine Cocaine Screen (Negative) U Marijuana (THC) Screen (Negative) 10/03/20 10/03/20 Range/Units 09:58 09:58 WBC (4.5-11.0) X10^3/uL RBC (4.0-5.2) X10^6/uL Hgb (12.0-16.0) g/dL Hct (36-46) % MCV (80-100) fL MCH (26-34) PG MCHC (30-36) % RDW (11.6-14.8) % Plt Count (150-400) X10^3/uL Neut % (Auto) (50-75) % Lymph % (Auto) (25-40) % [place] % (Auto) (3-14) % Eos % (Auto) (2-4) % Baso % (Auto) (0-2) % Neut # (Auto) (5672-1488) /uL Lymph # (Auto) (7325-4569) /uL [place] # (Auto) (0-900) /uL Eos # (Auto) (0-450) /uL Baso # (Auto) (0-100) /uL Sodium (137-145) mmol/L Potassium (3.4-5.1) mmol/L Chloride (98-107) mmol/L Carbon Dioxide (22-32) mmol/L BUN (7-17) mg/dL Creatinine (0.52-1.04) mg/dL Estimated GFR (>60) mL/min BUN/Creatinine Ratio (6-22) Glucose (70-100) mg/dL Calcium (8.4-10.2) mg/dL Total Bilirubin (0.2-1.3) mg/dL AST (14-36) IU/L ALT (<35) IU/L Alkaline Phosphatase (38-126) U/L Total Protein (6.3-8.2) g/dL Albumin (3.5-5.0) g/dL Globulin (1.7-4.1) g/dL Albumin/Globulin Ratio (1.0-2.8) Lipase (23-300) U/L Serum , Qual (Negative) Urine Color Yellow Urine Appearance Sl cloudy Urine pH 7.0 (4.5-8.0) Ur Specific [place] 1.020 (1.000-1.035) Urine Protein Negative (Negative) Urine Glucose (UA) Negative (Negative) g/dL Urine Ketones Negative (NEGATIVE) Urine Occult Blood 3+ H (Negative) Urine Nitrate Negative (Negative) Urine Bilirubin Negative (NEGATIVE) Urine Urobilinogen 0.2 (0.2) E.U./dL Ur Leukocyte Esterase Negative (NEGATIVE) Urine RBC 5-10/hpf H (0-5/HPF) Urine WBC 5-10/hpf H (0-5/HPF) Urine Bacteria Many (>30) H (None) Ur Culture Indicated? Specimen cultured U Opiates 300ng/mL cut Positive H (Negative) Ur Oxycodone Screen Negative (Negative) Urine Methadone Screen Negative (Negative) Ur Barbiturates Screen Negative (Negative) U Tricyclic Antidepress Negative (Negative) Ur Phencyclidine Scrn Negative (Negative) Ur Amphetamines Screen Positive H (Negative) U Methamphetamines Scrn Positive H (Negative) Ur MDMA Scrn (Ecstasy) Negative (Negative) U Benzodiazepines Scrn Negative (Negative) Urine Cocaine Screen Negative (Negative) U Marijuana (THC) Screen Positive H (Negative) Point of care testing: Point of Care Testing Test Results Negative <So Bonilla, DO - Last Filed: 10/03/20 19:31> Lab Data Labs: Lab Results 10/03/20 10/03/20 10/03/20 Range/Units 06:06 06:06 08:56 WBC 7.8 (4.5-11.0) X10^3/uL RBC 4.16 (4.0-5.2) X10^6/uL Hgb 12.7 (12.0-16.0) g/dL Hct 38.9 (36-46) % MCV 93.3 (80-100) fL MCH 30.5 (26-34) PG MCHC 32.7 (30-36) % RDW 13.4 (11.6-14.8) % Plt Count 409 H (150-400) X10^3/uL Neut % (Auto) 57.8 (50-75) % Lymph % (Auto) 31.5 (25-40) % [place] % (Auto) 8.4 (3-14) % Eos % (Auto) 1.0 L (2-4) % Baso % (Auto) 1.3 (0-2) % Neut # (Auto) 4500 (4309-3493) /uL Lymph # (Auto) 2500 (2644-8662) /uL [place] # (Auto) 700 (0-900) /uL Eos # (Auto) 100 (0-450) /uL Baso # (Auto) 100 (0-100) /uL Sodium 142 (137-145) mmol/L Potassium 3.2 L (3.4-5.1) mmol/L Chloride 108 H (98-107) mmol/L Carbon Dioxide 24 (22-32) mmol/L BUN 8 (7-17) mg/dL Creatinine 0.70 (0.52-1.04) mg/dL Estimated GFR > 60.0 (>60) mL/min BUN/Creatinine Ratio 11.4 (6-22) Glucose 152 H (70-100) mg/dL Calcium 8.4 (8.4-10.2) mg/dL Total Bilirubin 0.2 (0.2-1.3) mg/dL AST 60 H (14-36) IU/L ALT 27 (<35) IU/L Alkaline Phosphatase 66 (38-126) U/L Total Protein 7.0 (6.3-8.2) g/dL Albumin 4.1 (3.5-5.0) g/dL Globulin 2.9 (1.7-4.1) g/dL Albumin/Globulin Ratio 1.4 (1.0-2.8) Lipase 71 (23-300) U/L Serum , Qual Negative (Negative) Urine Color Urine Appearance Urine pH (4.5-8.0) Ur Specific [place] (1.000-1.035) Urine Protein (Negative) Urine Glucose (UA) (Negative) g/dL Urine Ketones (NEGATIVE) Urine Occult Blood (Negative) Urine Nitrate (Negative) Urine Bilirubin (NEGATIVE) Urine Urobilinogen (0.2) E.U./dL Ur Leukocyte Esterase (NEGATIVE) Urine RBC (0-5/HPF) Urine WBC (0-5/HPF) Urine Bacteria (None) Ur Culture Indicated? U Opiates 300ng/mL cut (Negative) Ur Oxycodone Screen (Negative) Urine Methadone Screen (Negative) Ur Barbiturates Screen (Negative) U Tricyclic Antidepress (Negative) Ur Phencyclidine Scrn (Negative) Ur Amphetamines Screen (Negative) U Methamphetamines Scrn (Negative) Ur MDMA Scrn (Ecstasy) (Negative) U Benzodiazepines Scrn (Negative) Urine Cocaine Screen (Negative) U Marijuana (THC) Screen (Negative) 10/03/20 10/03/20 Range/Units 09:58 09:58 WBC (4.5-11.0) X10^3/uL RBC (4.0-5.2) X10^6/uL Hgb (12.0-16.0) g/dL Hct (36-46) % MCV (80-100) fL MCH (26-34) PG MCHC (30-36) % RDW (11.6-14.8) % Plt Count (150-400) X10^3/uL Neut % (Auto) (50-75) % Lymph % (Auto) (25-40) % [place] % (Auto) (3-14) % Eos % (Auto) (2-4) % Baso % (Auto) (0-2) % Neut # (Auto) (9531-8550) /uL Lymph # (Auto) (5756-5980) /uL [place] # (Auto) (0-900) /uL Eos # (Auto) (0-450) /uL Baso # (Auto) (0-100) /uL Sodium (137-145) mmol/L Potassium (3.4-5.1) mmol/L Chloride (98-107) mmol/L Carbon Dioxide (22-32) mmol/L BUN (7-17) mg/dL Creatinine (0.52-1.04) mg/dL Estimated GFR (>60) mL/min BUN/Creatinine Ratio (6-22) Glucose (70-100) mg/dL Calcium (8.4-10.2) mg/dL Total Bilirubin (0.2-1.3) mg/dL AST (14-36) IU/L ALT (<35) IU/L Alkaline Phosphatase (38-126) U/L Total Protein (6.3-8.2) g/dL Albumin (3.5-5.0) g/dL Globulin (1.7-4.1) g/dL Albumin/Globulin Ratio (1.0-2.8) Lipase (23-300) U/L Serum , Qual (Negative) Urine Color Yellow Urine Appearance Sl cloudy Urine pH 7.0 (4.5-8.0) Ur Specific [place] 1.020 (1.000-1.035) Urine Protein Negative (Negative) Urine Glucose (UA) Negative (Negative) g/dL Urine Ketones Negative (NEGATIVE) Urine Occult Blood 3+ H (Negative) Urine Nitrate Negative (Negative) Urine Bilirubin Negative (NEGATIVE) Urine Urobilinogen 0.2 (0.2) E.U./dL Ur Leukocyte Esterase Negative (NEGATIVE) Urine RBC 5-10/hpf H (0-5/HPF) Urine WBC 5-10/hpf H (0-5/HPF) Urine Bacteria Many (>30) H (None) Ur Culture Indicated? Specimen cultured U Opiates 300ng/mL cut Positive H (Negative) Ur Oxycodone Screen Negative (Negative) Urine Methadone Screen Negative (Negative) Ur Barbiturates Screen Negative (Negative) U Tricyclic Antidepress Negative (Negative) Ur Phencyclidine Scrn Negative (Negative) Ur Amphetamines Screen Positive H (Negative) U Methamphetamines Scrn Positive H (Negative) Ur MDMA Scrn (Ecstasy) Negative (Negative) U Benzodiazepines Scrn Negative (Negative) Urine Cocaine Screen Negative (Negative) U Marijuana (THC) Screen Positive H (Negative) Point of care testing: Point of Care Testing Test Results Negative Imaging Data CT scan - abdomen/pelvis: Radiologist's Impression: [address] [id number] Scan ReportSigned Patient: Isa Torres CMR#: [id number]: [id number]:[id number]/Sex: 25 / FDate of Service: 10/03/20Loc: EDAccession Number: [id number] Procedure: CT abdomen pelvis w con Ordering Provider: So Bonilla D.O. PROCEDURE: CT ABDOMEN PELVIS W CON INDICATIONS: abd pain, vomiting since last night TECHNIQUE: After the administration of intravenous contrast, axial sections acquired from the lung bases to the pubic symphysis. Coronal and sagittal reformats were performed. For radiation dose reduction, the following was used: automated exposure control, adjustment of mA and/or kV according to patient size. COMPARISON: None. FINDINGS: Image quality: Excellent. Lung bases: Unremarkable. Heart: No significant findings. ABDOMEN: Liver: Unremarkable. Gallbladder: Unremarkable. Biliary ducts: Unremarkable. Pancreas: Unremarkable. Spleen: Unremarkable. Adrenal Glands: Unremarkable. Kidneys and Ureters: Unremarkable. Stomach and Bowel: Stomach and colon are unremarkable. There is prominence of small bowel gas within the abdomen and pelvis. No sign of pneumatosis, intussusception, or mass. Peritoneum: No abnormal intraperitoneal fluid. No free air. Ventral Wall: No hernias. Abdominal Nodes: No retroperitoneal or mesenteric adenopathy by size criteria. Vessels: Aorta and inferior vena cava are normal in size. PELVIS: Pelvic Organs: Unremarkable. Bladder: Unremarkable. Pelvic Nodes: No enlarged lymph nodes. Miscellaneous: No hernias are seen. Normal appendix found right lower quadrant. Bones: Unremarkable. IMPRESSION: Enteritis is the likely cause for the abnormal gas filling of the small bowel, which is noted to be at or just below the upper limits of normal in caliber in a pattern consistent with enteritis or ileus. No inflammatory process is found, however. A normal appendix is seen at the right lower quadrant. Dictated by: George Sarmiento M.D. on 10/03/2020 at 10:50 Approved by: George Sarmiento M.D. on 10/03/2020 at 10:52 Discharge Plan Departure Patient Disposition: Home Clinical Impression: Opiate overdose, Enteritis Activity Restrictions/Additional Instructions: Follow-up in the next several days for recheck. Your labs imaging today are reassuring your CT does show enteritis or some irritation of your got which is likely causing some of your symptoms. You may take Zofran 1 tablet every 6 hours as needed for nausea or vomiting. Prescription was sent to [facility] Return for fevers, recurrent altered mental status, severe headaches, persistent vomiting, new chest pain or shortness of breath, black or bloody stools or other new or concerning symptoms. Prescriptions: New ondansetron 4 mg tablet,disintegrating 4 mg PO QID PRN (Reason: nausea and vomiting) Qty: 10 RF: 0 No Action albuterol sulfate 90 mcg/actuation HFA aerosol inhaler 2 puff INHALATION QID PRN (Reason: shortness of breath or wheezing) Qty: 8 RF: 3 fluocinonide 0.05 % cream 1 applictn TOP BID Qty: 30 RF: 1 fluocinonide 0.05 % solution 1 applictn TOP BID Qty: 60 RF: 1 clonazepam 1 mg tablet 1 mg PO BID Qty: 14 RF: 1 chlordiazepoxide HCl 25 mg capsule 25 mg PO Q12H PRN (Reason: alcohol withdrawal) Qty: 60 RF: 0 Hold Instructions: Home Medication placed on hold at Doctor's office paroxetine HCl [Paxil] 20 mg tablet 20 mg PO DAILY Qty: 90 RF: 2 lamotrigine 100 mg tablet 100 mg PO BID Qty: 180 RF: 3 norethindrone-e.estradiol-iron [[place] 24 Fe] 1 mg-20 mcg(24) /75 mg (4) tablet,chewable 1 tab PO DAILY Qty: 84 RF: 3 ondansetron HCl [Zofran] 4 mg tablet 4 mg PO Q6H PRN (Reason: nausea and vomiting) Qty: 10 RF: 0 oxycodone-acetaminophen [Percocet] 5-325 mg tablet 1 tab PO Q6H PRN (Reason: pain) Qty: 14 RF: 0 Referrals: Miscellaneous,Doctor, MD [Primary Care Provider] -
[2020-10-03 06:13] LABS: Add Manual Diff / Slide Review NO; Basophils Absolute Auto 100 /uL (0-100); Basophils Percent Auto 1.3 % (0-2); Eosinophils Absolute Auto 100 /uL (0-450); Hematocrit 38.9 % (36-46); Hemoglobin 12.7 g/dL (12.0-16.0); Lymphocytes Absolute Auto 2500 /uL (1100-4500); Lymphocytes Percent Auto 31.5 % (25-40); Mean Corpuscular HGB Conc 32.7 % (30-36); Mean Corpuscular Hemoglobin 30.5 PG (26-34); Mean Corpuscular Volume 93.3 fL (80-100); Monocytes Absolute Auto 700 /uL (0-900); Monocytes Percent Auto 8.4 % (3-14); Neutrophils Absolute Auto 4500 /uL (1500-7000); Neutrophils Percent Auto 57.8 % (50-75); Platelet Count 409 X10^3/uL (150-400); Red Blood Cell Count 4.16 X10^6/uL (4.0-5.2); Red Cell Distribution Width 13.4 % (11.6-14.8); White Blood Cell Count 7.8 X10^3/uL (4.5-11.0)
--- NOTE | 2020-10-03 06:16 | PC.NURSE ---
Pt noted with SpO2 drifting to 70%. Pt cyanotic, roused easily to verbal/tactile stimuli. Dr May at bedside, plan to give Narcan if sats drop again.
[2020-10-03 06:24] LABS: Alanine Aminotransferase 27 IU/L (<35); Albumin 4.1 g/dL (3.5-5.0); Albumin Globulin Ratio 1.4 (1.0-2.8); Alkaline Phosphatase 66 U/L (38-126); Aspartate Aminotransferase 60 IU/L (14-36); BUN Creatinine Ratio 11.4 (6-22); Bilirubin Total 0.2 mg/dL (0.2-1.3); Blood Urea Nitrogen 8 mg/dL (7-17); Calcium 8.4 mg/dL (8.4-10.2); Carbon Dioxide 24 mmol/L (22-32); Chloride 108 mmol/L (98-107); Estimated Glomerular Filt Rate > 60.0 mL/min (>60); Globulin 2.9 g/dL (1.7-4.1); Glucose 152 mg/dL (70-100); HEMOLYSIS < 15 (0-50); Lipase 71 U/L (23-300); Potassium 3.2 mmol/L (3.4-5.1); Sodium 142 mmol/L (137-145)
[2020-10-03] MEDS: ONDANSETRON 4 MG/2 ML INJ (06:32)
[2020-10-03] MEDS: NALOXONE 0.4 MG/ML VIAL 0.1 MG IV (06:38)
[2020-10-03] MEDS: LACTATED RINGERS 1,000 ML 1000 ML IV (06:48)
[2020-10-03] MEDS: ONDANSETRON 4 MG/2 ML INJ IV (08:55)
[2020-10-03 10:02] LABS: Pregnancy Test Serum,Qual Negative (Negative)
--- NOTE | 2020-10-03 10:18 | DI.CT.S_ITS ---
PROCEDURE: CT ABDOMEN PELVIS W CON INDICATIONS: abd pain, vomiting since last night TECHNIQUE: After the administration of intravenous contrast, axial sections acquired from the lung bases to the pubic symphysis. Coronal and sagittal reformats were performed. For radiation dose reduction, the following was used: automated exposure control, adjustment of mA and/or kV according to patient size. COMPARISON: None. FINDINGS: Image quality: Excellent. Lung bases: Unremarkable. Heart: No significant findings. ABDOMEN: Liver: Unremarkable. Gallbladder: Unremarkable. Biliary ducts: Unremarkable. Pancreas: Unremarkable. Spleen: Unremarkable. Adrenal Glands: Unremarkable. Kidneys and Ureters: Unremarkable. Stomach and Bowel: Stomach and colon are unremarkable. There is prominence of small bowel gas within the abdomen and pelvis. No sign of pneumatosis, intussusception, or mass. Peritoneum: No abnormal intraperitoneal fluid. No free air. Ventral Wall: No hernias. Abdominal Nodes: No retroperitoneal or mesenteric adenopathy by size criteria. Vessels: Aorta and inferior vena cava are normal in size. PELVIS: Pelvic Organs: Unremarkable. Bladder: Unremarkable. Pelvic Nodes: No enlarged lymph nodes. Miscellaneous: No hernias are seen. Normal appendix found right lower quadrant. Bones: Unremarkable. IMPRESSION: Enteritis is the likely cause for the abnormal gas filling of the small bowel, which is noted to be at or just below the upper limits of normal in caliber in a pattern consistent with enteritis or ileus. No inflammatory process is found, however. A normal appendix is seen at the right lower quadrant. Dictated by: George Sarmiento M.D. on 10/03/2020 at 10:50 Approved by: George Sarmiento M.D. on 10/03/2020 at 10:52
[2020-10-03 10:23] LABS: UR Morphine/Opiate cutoff 300 Positive (Negative); Ur Creatinine Normal (Normal); Ur Specific Gravity Normal (Normal); Urine Amphetamines Positive (Negative); Urine Barbiturates Negative (Negative); Urine Benzodiazepines Negative (Negative); Urine Cocaine Negative (Negative); Urine MDMA Negative (Negative); Urine Methadone Negative (Negative); Urine Methamphetamines Positive (Negative); Urine Oxycodone Negative (Negative); Urine Phencyclidine Negative (Negative); Urine Tetrahydrocannabinol Positive (Negative); Urine Tricyclic Antidepressant Negative (Negative); Urine pH Normal (Normal)
[2020-10-03 11:13] LABS: Appearance Urine UA SL CLOUDY; Bilirubin Urine UA NEGATIVE (NEGATIVE); Color Urine UA YELLOW; Glucose Urine UA NEGATIVE (Negative); Ketones Urine UA NEGATIVE (NEGATIVE); Leukocyte Esterase Urine UA NEGATIVE (NEGATIVE); Nitrite Urine UA NEGATIVE (Negative); Occult Blood Urine UA 3+ (Negative); Protein Urine UA NEGATIVE (Negative); Urobilinogen Urine UA 0.2 E.U./dL (0.2)
[2020-10-03 11:18] LABS: Bacteria Urine Many (>30); Culture Indicated Urine Specimen Cultured; RBC Urine 5-10/HPF (0-5/HPF); WBC Urine 5-10/HPF (0-5/HPF)
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
== END 2020-10-03 12:32 | disposition home or self-care (01) ==
PROVIDERS: Emergency Medicine; Emergency Provider Emergency Medicine
DX: T40.601A Poisoning by unspecified narcotics, accidental (unintentional), initial encounter (principal); K52.9 Noninfective gastroenteritis and colitis, unspecified; R11.0 Nausea; R10.9 Unspecified abdominal pain
CPT/HCPCS: 36415; 74177; 80053; 80305; 81001; 81025; 83690; 84703; 85025; 87077; 87086; 87186; 93005; 96361; 96374; 96375; 96376; 99284; J2310; J2405

== ENCOUNTER 2021-02-01 09:15 | Emergency (ER) | payer MEDICARE, OTHER, MEDICAID, SELFPAY ==
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
[2021-02-01 09:40] VITALS: BP 131/72; PULSE 118; RESP 19; TEMP 36.7; O2SAT 97; BMI 22.8
[2021-02-01 10:07] LABS: COVID19 -Nasal RAPID Negative (Negative)
[2021-02-01] MEDS: KETOROLAC 30 MG/ML VIAL IM (10:37)
[2021-02-01 10:42] LABS: Add Manual Diff / Slide Review NO; Basophils Absolute Auto 100 /uL (0-100); Basophils Percent Auto 1.1 % (0-2); Eosinophils Absolute Auto 100 /uL (0-450); Eosinophils Percent Auto 1.4 % (2-4); Hematocrit 40.4 % (36-46); Hemoglobin 13.7 g/dL (12.0-16.0); Lymphocytes Absolute Auto 2600 /uL (1100-4500); Mean Corpuscular HGB Conc 33.8 % (30-36); Mean Corpuscular Hemoglobin 30.3 PG (26-34); Mean Corpuscular Volume 89.5 fL (80-100); Monocytes Absolute Auto 800 /uL (0-900); Neutrophils Absolute Auto 6700 /uL (1500-7000); Neutrophils Percent Auto 64.5 % (50-75); Platelet Count 459 X10^3/uL (150-400); Red Blood Cell Count 4.51 X10^6/uL (4.0-5.2); Red Cell Distribution Width 14.6 % (11.6-14.8); White Blood Cell Count 10.3 X10^3/uL (4.5-11.0)
[2021-02-01 10:58] LABS: Acetaminophen < 10 ug/mL (10-30); Alanine Aminotransferase 31 IU/L (<35); Albumin Globulin Ratio 1.4 (1.0-2.8); Alkaline Phosphatase 60 U/L (38-126); Aspartate Aminotransferase 42 IU/L (14-36); BUN Creatinine Ratio 15.7 (6-22); Bilirubin Total 0.4 mg/dL (0.2-1.3); Blood Urea Nitrogen 8 mg/dL (7-17); Calcium 8.3 mg/dL (8.4-10.2); Carbon Dioxide 26 mmol/L (22-32); Chloride 106 mmol/L (98-107); Estimated Glomerular Filt Rate > 60.0 mL/min (>60); Ethanol (ETOH) 234 mg/dL; Globulin 2.9 g/dL (1.7-4.1); Glucose 94 mg/dL (70-100); HEMOLYSIS < 15 (0-50); Potassium 3.8 mmol/L (3.4-5.1); Salicylate < 1.0 mg/dL (<20); Sodium 143 mmol/L (137-145); Total Protein 6.9 g/dL (6.3-8.2)
[2021-02-01 11:14] LABS: UR Morphine/Opiate cutoff 300 Negative (Negative); Ur Creatinine Normal (Normal); Ur Specific Gravity Normal (Normal); Urine Amphetamines Negative (Negative); Urine Barbiturates Negative (Negative); Urine Benzodiazepines Negative (Negative); Urine Cocaine Negative (Negative); Urine MDMA Negative (Negative); Urine Methadone Negative (Negative); Urine Methamphetamines Positive (Negative); Urine Oxycodone Negative (Negative); Urine Phencyclidine Negative (Negative); Urine Tetrahydrocannabinol Positive (Negative); Urine Tricyclic Antidepressant Negative (Negative); Urine pH Normal (Normal)
[2021-02-01 11:22] LABS: Bacteria Urine Many (>30); Culture Indicated Urine Specimen Cultured; RBC Urine 5-10/HPF (0-5/HPF); WBC Urine 5-10/HPF (0-5/HPF)
[2021-02-01 11:50] LABS: TSH w/ Reflex to FT4 0.51 uIU/mL (0.47-4.68)
[2021-02-01] MEDS: cephALEXin 250 MG CAPSULE 500 MG PO (12:14)
[2021-02-01] MEDS: ACETAMINOPHEN 325 MG TABLET 975 MG PO (12:14)
--- NOTE | 2021-02-01 12:58 | PC.NURSE ---
pt escalating, increased volume, screaming yelling, profanity. pt screaming out why dont i have and iv, why dont i have a bp cuff pt vitals stable, no iv ordered at this time nobody better fucking come in my room until i get a director targeted marketing
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
--- NOTE | 2021-02-01 14:25 | PC.NURSE ---
pt increasing agitation, threats to staff screaming Im going to fuck you up, dont fucking touch me pt had hospital supplies in purse, supplies retrieved under staff supervision pt belongings packing assisted by rn and liaison engineer. pt walked out of hospital by rn and liaison engineer. pt screaming outside of hospital at staff to fucking leave me alone, your not helping me so fucking leave
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
== END 2021-02-01 14:25 | disposition home or self-care (01) ==
PROVIDERS: Emergency Provider Emergency Medicine
DX: F22 Delusional disorders (principal); N39.0 Urinary tract infection, site not specified; F10.129 Alcohol abuse with intoxication, unspecified; F15.90 Other stimulant use, unspecified, uncomplicated; Y90.7 Blood alcohol level of 200-239 mg/100 ml; Z20.822 Contact with and (suspected) exposure to COVID-19
CPT/HCPCS: 36415; 80053; 80305; 80320; 80329; 81003; 81015; 81025; 84443; 85025; 87077; 87086; 87186; 87635; 96372; 99283; 99284; C9803; G0480; J1885